=== PATIENT | female | born 1960 | race Caucasian/White ===

== ENCOUNTER 2017-10-13 19:37 | Inpatient (IN) ==
[2017-10-13] MEDS ORDERED: Sod Chloride 0.9% Inj 1,000 ML IV.SIG SCH (20:00)
--- NOTE | 2017-10-13 20:06 | ED ---
HPI General Chief complaint: Overdose Stated complaint: Evac/Poss Od Time Seen by Provider: 10/13/17 19:45 Source: patient Mode of arrival: EMS Limitations: no limitations History of Present Illness HPI narrative: Patient is a 57-year-old female who presents to the emergency room with EMS after an overdose. Patient reports that she has been depressed, she has not been sleeping, reports a little after 6 PM today, she drank 2-3 cups of liquid Drano. Patient reports that she is just tired and depressed. She has been nauseous and has been vomiting after she drank the liquid Drano. She drove her brother's house and told him what she did and he called for help. Patient presents under a Rosenberg Act. Patient refuses to tell me if she is suicidal or not - just tells me she is very depressed Related Data Home Medications Medication Instructions Recorded Confirmed fenofibrate 50 mg PO DAILY 10/13/17 10/13/17 morphine 15 mg PO Q6H 10/13/17 10/13/17 omeprazole 20 mg PO DAILY 10/13/17 10/13/17 Allergies Allergy/AdvReac Type Severity Reaction Status Date / Time baclofen Allergy Severe Irritabilit Verified 10/13/17 20:19 y/Anxiety TAPE AdvReac Unknown Rash, Uncoded 10/13/17 20:19 Generalized Review of Systems ROS: all other systems reviewed are negative PMFSH History History Provided By: Patient Medical History Medical History GERD (gastroesophageal reflux disease) (Acute) Depression (Acute) Fibromyalgia (Acute) Social History Social History Second Hand Smoke Exposure: No Smoking Status: Never smoker How Often Do You Have a Drink Containing Alcohol: Never Recent Travel in [facility] within the Last 8 Weeks: No Recent Out of Country Travel within the Last 8 Weeks: No Exam Narrative Exam Narrative: GENERAL: Moderate distress SKIN: Focused skin assessment warm/dry. HEAD: Atraumatic. Normocephalic. EYES: Pupils equal and round. No scleral icterus. No injection or drainage. ENT: No nasal bleeding or discharge. Mucous membranes pink and moist. NECK: Trachea midline. No JVD. CARDIOVASCULAR: Regular rate and rhythm. No murmur appreciated. RESPIRATORY: No accessory muscle use. Clear to auscultation. Breath sounds equal bilaterally. GASTROINTESTINAL: Abdomen soft, non-tender, nondistended. Hepatic and splenic margins not palpable. MUSCULOSKELETAL: No obvious deformities. No clubbing. No cyanosis. No edema. NEUROLOGICAL: Awake and alert. No obvious cranial nerve deficits. Motor grossly within normal limits. Normal speech. PSYCHIATRIC: Anxious mood and affect; insight and judgment normal. Course Initial Documented Vital Signs Temperature 98.9 F 10/13/17 20:17 Pulse Rate 98 H 10/13/17 20:17 Respiratory Rate 18 10/13/17 20:17 Blood Pressure 172/94 H 10/13/17 20:17 Pulse Oximetry 98 10/13/17 20:17 Last Documented Vital Signs Temperature 98.9 F 10/13/17 20:17 Pulse Rate 98 H 10/13/17 20:17 Respiratory Rate 18 10/13/17 20:17 Blood Pressure 172/94 H 10/13/17 20:17 Pulse Oximetry 98 10/13/17 20:17 Critical Care Time Critical Care Time: Yes Total Critical Care Time: 30 Attestation: Aggregate critical care time was 30 minutes. Time to perform other separately billable procedures was not included in the critical care time. My time did not include minutes spent treating any other patients simultaneously or on activities that did not directly contribute to the patient's treatment. The services I provided to this patient were to treat and/or prevent clinically significant deterioration that could result in: , decompensation, deterioration I provided critical care services requiring my management, as noted below: Chart data review, documentation time, medication orders and management, vital sign assessments/reviewing monitor data, ordering and reviewing lab tests, ordering and interpreting/reviewing x-rays and diagnostic studies, care of the patient and discussion of the patient with the admitting physicians. Medical Decision Making MDM Narrative Medical decision making narrative: During the course of the patients emergency department visit, the patients history, examination, and differential diagnosis were reviewed with the patient. The patient was placed on a environmental monitoring specialist with oximetry and frequent blood pressure monitoring. The patient had an IV access obtained and blood work sent for analysis. The patient was initially provided IVF as well as IV zofran A call was made to poison control, recommend lab work including PT, INR and type and screen. Also recommends GI to scope patient looking for ulcerations Call made to GI longwall foreman Case reviewed with Dr. Cadet - does not require endoscopy at this time, request liquid carafate and ct to rule out perforation CT of the abdomen and pelvis with severe distal esophageal and gastric wall thickening suggestive of acute esophagitis and gastritis -patient is severely uncomfortable, will require close monitoring in the ICU. Call made to the pointer helper. Case reviewed with Dr. Vargas who accepts pt to his service Medical Screen Exam Complete: Yes Emergency Medical Condition: Yes Differential Diagnosis Differential Diagnosis: suicidal idealation, drug overdose, gastric ulcer, gastritis Medical Records Medical records reviewed: Yes I reviewed the patient's medical records. Lab Data Result diagrams: 10/13/17 19:55 10/13/17 19:55 Lab Results 10/13/17 10/13/17 10/13/17 Range/Units 19:55 19:55 19:55 WBC 6.2 (4.0-11.0) th/mm3 RBC 4.47 (4.00-5.30) mil/mm3 Hgb 13.6 (11.6-15.3) gm/dL Hct 40.6 (35.0-46.0) % MCV 90.6 (80.0-100.0) fL MCH 30.5 (27.0-34.0) pg MCHC 33.6 (32.0-36.0) % RDW 12.9 (11.6-17.2) % Plt Count 323 (150-450) th/mm3 MPV 8.4 (7.0-11.0) fL Neut % (Auto) 70.0 (16.0-70.0) % Lymph % (Auto) 23.1 (9.0-44.0) % [place] % (Auto) 5.7 (0.0-8.0) % Eos % (Auto) 0.3 (0.0-4.0) % Baso % (Auto) 0.9 (0.0-2.0) % Neut # (Auto) 4.3 (1.8-7.7) th/mm3 Lymph # (Auto) 1.4 (1.0-4.8) th/mm3 [place] # (Auto) 0.4 (0.0-0.9) th/mm3 Eos # (Auto) 0.0 (0.0-0.4) th/mm3 Baso # (Auto) 0.1 (0.0-0.2) th/mm3 WBC Differential . Differential Comment Auto diff final PT (9.8-11.6) sec INR Ratio APTT (24.3-30.1) sec Sodium 146 H (136-145) meq/L Potassium 3.3 L (3.5-5.1) meq/L Chloride 111 H (98-107) meq/L Carbon Dioxide 22.9 (21.0-32.0) meq/L Anion Gap 12 (5-15) meq/L BUN 13 (7-18) mg/dL Creatinine 0.88 (0.50-1.00) mg/dL Estimated GFR 66 L (>89) mL/min Random Glucose 115 H (74-106) mg/dL Calcium 8.4 L (8.5-10.1) mg/dL Prot Corrected Calcium Total Bilirubin 0.7 (0.2-1.0) mg/dL AST 29 (15-37) U/L ALT 20 (10-53) U/L Alkaline Phosphatase 56 (45-117) U/L Total Protein 7.5 (6.4-8.2) g/dL Albumin 4.2 (3.4-5.0) g/dL TSH 1.660 (0.358-3.740) uIU/mL Salicylates Less than 1.7 L (2.8-20.0) mg/dL Urine Opiates Screen (Neg) Acetaminophen Less than 2.0 L (10.0-30.0) mcg/mL Ur Barbiturates Screen (Neg) Ur Amphetamines Screen (Neg) U Benzodiazepines Scrn (Neg) Urine Cocaine Screen (Neg) U Cannabinoids Screen (Neg) Serum Alcohol Less than 3 (0-5) mg/dL Blood Type Blood Type Recheck Antibody Screen 10/13/17 10/13/17 10/13/17 Range/Units 19:55 19:55 20:05 WBC (4.0-11.0) th/mm3 RBC (4.00-5.30) mil/mm3 Hgb (11.6-15.3) gm/dL Hct (35.0-46.0) % MCV (80.0-100.0) fL MCH (27.0-34.0) pg MCHC (32.0-36.0) % RDW (11.6-17.2) % Plt Count (150-450) th/mm3 MPV (7.0-11.0) fL Neut % (Auto) (16.0-70.0) % Lymph % (Auto) (9.0-44.0) % [place] % (Auto) (0.0-8.0) % Eos % (Auto) (0.0-4.0) % Baso % (Auto) (0.0-2.0) % Neut # (Auto) (1.8-7.7) th/mm3 Lymph # (Auto) (1.0-4.8) th/mm3 [place] # (Auto) (0.0-0.9) th/mm3 Eos # (Auto) (0.0-0.4) th/mm3 Baso # (Auto) (0.0-0.2) th/mm3 WBC Differential Differential Comment PT 11.7 H (9.8-11.6) sec INR 1.2 Ratio APTT 21.5 L (24.3-30.1) sec Sodium Cancelled (136-145) meq/L Potassium Cancelled (3.5-5.1) meq/L Chloride Cancelled (98-107) meq/L Carbon Dioxide Cancelled (21.0-32.0) meq/L Anion Gap Cancelled (5-15) meq/L BUN Cancelled (7-18) mg/dL Creatinine Cancelled (0.50-1.00) mg/dL Estimated GFR Cancelled (>89) mL/min Random Glucose Cancelled (74-106) mg/dL Calcium Cancelled (8.5-10.1) mg/dL Prot Corrected Calcium Cancelled Total Bilirubin Cancelled (0.2-1.0) mg/dL AST Cancelled (15-37) U/L ALT Cancelled (10-53) U/L Alkaline Phosphatase Cancelled (45-117) U/L Total Protein Cancelled (6.4-8.2) g/dL Albumin Cancelled (3.4-5.0) g/dL TSH Cancelled (0.358-3.740) uIU/mL Salicylates (2.8-20.0) mg/dL Urine Opiates Screen (Neg) Acetaminophen (10.0-30.0) mcg/mL Ur Barbiturates Screen (Neg) Ur Amphetamines Screen (Neg) U Benzodiazepines Scrn (Neg) Urine Cocaine Screen (Neg) U Cannabinoids Screen (Neg) Serum Alcohol Cancelled (0-5) mg/dL Blood Type A Positive Blood Type Recheck Required Antibody Screen Negative 10/13/17 Range/Units 22:15 WBC (4.0-11.0) th/mm3 RBC (4.00-5.30) mil/mm3 Hgb (11.6-15.3) gm/dL Hct (35.0-46.0) % MCV (80.0-100.0) fL MCH (27.0-34.0) pg MCHC (32.0-36.0) % RDW (11.6-17.2) % Plt Count (150-450) th/mm3 MPV (7.0-11.0) fL Neut % (Auto) (16.0-70.0) % Lymph % (Auto) (9.0-44.0) % [place] % (Auto) (0.0-8.0) % Eos % (Auto) (0.0-4.0) % Baso % (Auto) (0.0-2.0) % Neut # (Auto) (1.8-7.7) th/mm3 Lymph # (Auto) (1.0-4.8) th/mm3 [place] # (Auto) (0.0-0.9) th/mm3 Eos # (Auto) (0.0-0.4) th/mm3 Baso # (Auto) (0.0-0.2) th/mm3 WBC Differential Differential Comment PT (9.8-11.6) sec INR Ratio APTT (24.3-30.1) sec Sodium (136-145) meq/L Potassium (3.5-5.1) meq/L Chloride (98-107) meq/L Carbon Dioxide (21.0-32.0) meq/L Anion Gap (5-15) meq/L BUN (7-18) mg/dL Creatinine (0.50-1.00) mg/dL Estimated GFR (>89) mL/min Random Glucose (74-106) mg/dL Calcium (8.5-10.1) mg/dL Prot Corrected Calcium Total Bilirubin (0.2-1.0) mg/dL AST (15-37) U/L ALT (10-53) U/L Alkaline Phosphatase (45-117) U/L Total Protein (6.4-8.2) g/dL Albumin (3.4-5.0) g/dL TSH (0.358-3.740) uIU/mL Salicylates (2.8-20.0) mg/dL Urine Opiates Screen Neg (Neg) Acetaminophen (10.0-30.0) mcg/mL Ur Barbiturates Screen Neg (Neg) Ur Amphetamines Screen Neg (Neg) U Benzodiazepines Scrn Pos H (Neg) Urine Cocaine Screen Neg (Neg) U Cannabinoids Screen Pos H (Neg) Serum Alcohol (0-5) mg/dL Blood Type Blood Type Recheck Antibody Screen Imaging Data Radiologist's impression: Chest X-Ray 10/13/17 19:47 CONCLUSION: Negative examination. Abdomen/Pelvis CT 10/13/17 20:44 CONCLUSION: 1. Severe distal esophageal and gastric wall thickening suggestive of acute esophagitis and gastritis. Clinical correlation is recommended. 2. Multiple stable hepatic hemangiomas as described above. 3. Degenerative changes and scoliosis of lumbar spine. 4. Stable right renal cyst measuring 1.6 cm. Discharge Plan Discharge Disposition Patient Disposition: 30 Still Patient Discharge Condition Condition: Serious Discharge Details Diagnosis: Overdose, Suicidal behavior Physicians Team ED Provider: Ruth Newman Primary Care Provider: UNKNOWN, Attending Provider: Billy Vargas Other Providers: [employer] Status ED Status: Admitted Patient
--- NOTE | 2017-10-13 20:19 | XR ---
EXAM DATE: 10/13/2017 8:13 PM EDT AGE/SEX: 57 years / Female INDICATIONS: . Chest pain. Possible overdose. CLINICAL DATA: This is the patient's initial encounter. Patient reports that signs and symptoms have been present for 1 day and indicates a pain score of 10/10. MEDICAL/SURGICAL HISTORY: Gastroesophageal reflux disease. Cardiovascular disease. Hysterecto my. COMPARISON: . FINDINGS: PA and lateral views of the chest demonstrate the lungs to be symmetrically aerated without evidence of mass, infiltrate or effusion. The cardiomediastinal contours are unremarkable. Osseous structures are intact. CONCLUSION: Negative examination. Electronically signed by: Ortiz Hinkle MD 10/13/2017 8:18 PM EDT
[2017-10-13 20:28] LABS: Baso # (Auto) 0.1 th/mm3 (0.0-0.2); Baso % (Auto) 0.9 % (0.0-2.0); Eos % (Auto) 0.3 % (0.0-4.0); Hematocrit 40.6 % (35.0-46.0); Hemoglobin 13.6 gm/dL (11.6-15.3); Lymph # (Auto) 1.4 th/mm3 (1.0-4.8); Lymph % (Auto) 23.1 % (9.0-44.0); Mean Corpuscular HGB Conc 33.6 % (32.0-36.0); Mean Corpuscular Hemoglobin 30.5 pg (27.0-34.0); Mean Corpuscular Volume 90.6 fL (80.0-100.0); Mean Platelet Volume 8.4 fL (7.0-11.0); Mono # (Auto) 0.4 th/mm3 (0.0-0.9); Mono % (Auto) 5.7 % (0.0-8.0); Neut # (Auto) 4.3 th/mm3 (1.8-7.7); Platelet Count 323 th/mm3 (150-450); Red Blood Count 4.47 mil/mm3 (4.00-5.30); Red Cell Distribution Width 12.9 % (11.6-17.2); White Blood Count 6.2 th/mm3 (4.0-11.0)
[2017-10-13 20:29] LABS: Albumin 4.2 g/dL (3.4-5.0); Anion Gap 12 meq/L (5-15); Blood Urea Nitrogen 13 mg/dL (7-18); Calcium 8.4 mg/dL (8.5-10.1); Carbon Dioxide 22.9 meq/L (21.0-32.0); Chloride 111 meq/L (98-107); Glomerular Filtration Rate 66 mL/min (>89); Glucose,Random 115 mg/dL (74-106); Potassium 3.3 meq/L (3.5-5.1); Sodium 146 meq/L (136-145)
[2017-10-13 20:30] LABS: Alanine Aminotransferase 20 U/L (10-53); Aspartate Aminotransferase 29 U/L (15-37)
[2017-10-13 20:40] LABS: Alkaline Phosphatase 56 U/L (45-117); Total Protein 7.5 g/dL (6.4-8.2)
[2017-10-13] MEDS ORDERED: Sucralfate Liq 1 GM/10 ML UDC PO STA (20:42)
[2017-10-13 21:24] LABS: Activated Partial Thrombo Time 21.5 sec (24.3-30.1); INR 1.2 Ratio; Prothrombin Time 11.7 sec (9.8-11.6)
--- NOTE | 2017-10-13 21:31 | CT ---
EXAM DATE: 10/13/2017 9:18 PM EDT AGE/SEX: 57 years / Female INDICATIONS: Abdominal pain and vomiting after drinking drano. CLINICAL DATA: This is the patient's initial encounter. Patient reports that signs and symptoms have been present for 1 day and indicates a pain score of 6/10. MEDICAL/SURGICAL HISTORY: Gastroesophageal reflux disease. None. ORAL CONTRAST: No oral contrast ingested. RADIATION DOSE: 4.63 CTDI (mGy) COMPARISON: . TECHNIQUE: Multiple contiguous axial images were obtained through the abdomen and pelvis following b olus infusion of 75 ml Omnipaque 350 (iohexol) nonionic water-soluble contrast as a single exam dos e. No oral contrast ingested. Using automated exposure control and adjustment of the mA and/or kV ac cording to patient size, radiation dose was kept as low as reasonably achievable to obtain optimal di agnostic quality images. DICOM format image data is available electronically for review and comparis on. FINDINGS: Lower Lungs: The visualized lower lungs are clear. Liver: Multiple hepatic hemangiomas are again noted with the largest measuring 3 cm in the expected r egion of the caudate lobe. Spleen: Homogeneous density without enlargement. Pancreas: Unremarkable without mass or calcification. Kidneys: Normal in size and shape. No evidence of mass or hydronephrosis. 1.6 cm right renal cyst is noted. Adrenal Glands: Unremarkable. Aorta: The aorta and proximal iliac vessels are grossly unremarkable without aneurysmal dilation. Bowel/Mesentery: There is severe thickening involving the visualized portion of the distal esophageal wall consistent with probable esophagitis. Marked diffuse gastric wall thickening is noted consisten t with probable severe gastritis. Clinical correlation is recommended. Abdominal Wall: Intact. Retroperitoneum: No evidence of adenopathy in the retrocrural, para-aortic, or deep pelvic regions. Bladder: Contours are smooth. Reproductive Organs: No abnormal masses or calcifications seen. Inguinal: The inguinal region is unremarkable without evidence of adenopathy. Bony Structures: Degenerative changes and scoliosis of the lumbar spine are noted. CONCLUSION: 1. Severe distal esophageal and gastric wall thickening suggestive of acute esophagitis and gastriti s. Clinical correlation is recommended. 2. Multiple stable hepatic hemangiomas as described above. 3. Degenerative changes and scoliosis of lumbar spine. 4. Stable right renal cyst measuring 1.6 cm. Electronically signed by: Ortiz Hinkle MD 10/13/2017 9:30 PM EDT
[2017-10-13 22:49] LABS: Amphetamine Screen,Urine Neg (Neg); Barbiturate Screen,Urine Neg (Neg); Cannabinoid Screen,Urine Pos (Neg); Cocaine Screen,Urine Neg (Neg)
[2017-10-13 22:51] LABS: Opiate Screen,Urine Neg (Neg)
--- NOTE | 2017-10-13 23:03 | P.HPCC ---
History of Present Illness Primary Care Physician: UNKNOWN History of Present Illness: 57-year-old female who presents after an overdose. Patient reports that she has been depressed, she has not been sleeping, reports a little after 6 PM today , she drank 2-3 cups of liquid Drano. Patient reports that she is just tired and depressed. She has been nauseous and has been vomiting after she drank the liquid Drano. She drove to her brother's house and told him what she did and he called for help. Patient presents under a Rosenberg Act. Patient refuses to provide any further information. Inpatient Certification: I certify that the inpatient services were ordered in accordance with Medicare regulations governing the order. This includes certification that hospital inpatient services are reasonable and necessary and in the case of services not specified as inpatient-only under 42 CFR 419.22(n), that they are appropriately provided as inpatient services in accordance to with the 2-midnight benchmark under 43 CFR 412.3(e) Review of Systems unobtainable due to mental condition PMFSH - History History Provided By: Patient - Medical History Medical History: Medical History (Last Updated 10/13/17 @ 20:18 by Ortiz Mann) GERD (gastroesophageal reflux disease) (Acute) Depression (Acute) Fibromyalgia - Tobacco History Second Hand Smoke Exposure: No Smoking Status: Never smoker - Alcohol History How Often Do You Have a Drink Containing Alcohol: Never - Travel History Recent Travel in the [place] Within the Last 8 Weeks: No Recent Travel Out of the Country Within the Last 8 Weeks: No - Immunization History Tetanus Immunization: Unsure Hx Influenza Vaccine This Season: No Medications and Allergies Active Medications: Active Medications Sodium Chloride (Ns Inj) 1,000 mls @ 0 mls/hr IV.SIG BOLUS SHANTAL Last Admin: 10/13/17 20:25 Dose: 999 mls/hr Allergies Allergy/AdvReac Type Severity Reaction Status Date / Time baclofen Allergy Severe Irritabilit Verified 10/13/17 20:19 y/Anxiety TAPE AdvReac Unknown Rash, Uncoded 10/13/17 20:19 Generalized Home Medications Medication Instructions Recorded Confirmed Type fenofibrate 50 mg PO DAILY 10/13/17 10/13/17 History morphine 15 mg PO Q6H 10/13/17 10/13/17 History omeprazole 20 mg PO DAILY 10/13/17 10/13/17 History Results - Labs CBC & Chem 7: 10/14/17 02:57 10/14/17 02:57 Labs: Short CBC 10/13/17 Range/Units 19:55 WBC 6.2 (4.0-11.0) th/mm3 Hgb 13.6 (11.6-15.3) gm/dL Hct 40.6 (35.0-46.0) % Plt Count 323 (150-450) th/mm3 BMP 10/13/17 10/13/17 19:55 19:55 Sodium 146 H Cancelled Potassium 3.3 L Cancelled Chloride 111 H Cancelled Carbon Dioxide 22.9 Cancelled BUN 13 Cancelled Creatinine 0.88 Cancelled Calcium 8.4 L Cancelled Liver Function 10/13/17 10/13/17 Range/Units 19:55 19:55 Total Bilirubin 0.7 Cancelled (0.2-1.0) mg/dL AST 29 Cancelled (15-37) U/L ALT 20 Cancelled (10-53) U/L Alkaline Phosphatase 56 Cancelled (45-117) U/L Albumin 4.2 Cancelled (3.4-5.0) g/dL - Imaging Impressions Chest X-Ray 10/13/17 19:47 CONCLUSION: Negative examination. Abdomen/Pelvis CT 10/13/17 20:44 CONCLUSION: 1. Severe distal esophageal and gastric wall thickening suggestive of acute esophagitis and gastritis. Clinical correlation is recommended. 2. Multiple stable hepatic hemangiomas as described above. 3. Degenerative changes and scoliosis of lumbar spine. 4. Stable right renal cyst measuring 1.6 cm. Exam Vital signs: Vital Signs 10/13/17 20:17 Temperature 98.9 F Pulse Rate 98 H Respiratory Rate 18 Blood Pressure 172/94 H Pulse Oximetry 98 Intake & Output 10/13/17 10/13/17 10/14/17 06:59 18:59 06:59 Weight 65 kg - Constitutional mild distress - Routine HEENT Exam Head: Present: normocephalic, atraumatic Eye: Present: PERRL ENT: Present: mucous membranes moist - Routine Neck Exam Present: supple, full ROM. Absent: JVD, carotid bruit - Routine Respiratory Exam Absent: accessory muscle use, rhonchi, stridor, wheezes - Routine Cardiovascular Exam Present: RRR, S1, S2 - Routine Abdominal Exam Present: soft, normoactive bowel sounds, tenderness. Absent: distended, rebound - Routine Extremities Exam Absent: cyanosis, clubbing, edema - Routine Skin Exam Present: intact. Absent: cyanosis, erythema - Routine Neurological Exam Present: alert, oriented X3. Absent: facial asymmetry Caprini VTE Risk Assessment Caprini VTE Risk Assessment: Moderate/High Risk (score >= 2) Caprini Risk Assessment Model: Point Value = 1 Point Value = 2 Point Value = 3 Point Value = 5 Age 41-60 Minor surgery BMI > 25 kg/m2 Swollen legs Varicose veins or History of unexplained or recurrent spontaneous Oral contraceptives or hormone replacement Sepsis (< 1 month) Serious lung disease, including pneumonia (< 1 month) Abnormal pulmonary function Acute myocardial infarction Congestive heart failure (< 1 month) History of inflammatory bowel disease Medical patient at bed rest Age 61-74 Arthroscopic surgery Major open surgery (> 45 min) Laparoscopic surgery (> 45 min) Malignancy Confined to bed (> 72 hours) Immobilizing plaster cast Central venous access Age >= 75 History of VTE Family history of VTE Factor V Leiden Prothrombin [id number] Lupus anticoagulant Anticardiolipin antibodies Elevated serum homocysteine Heparin-induced thrombocytopenia Other congenital or acquired thrombophilia Stroke (< 1 month) Elective arthroplasty Hip, pelvis, or leg fracture Acute spinal cord injury (< 1 month) Prophylaxis Regimen: Total Risk Factor Score Risk Level Prophylaxis Regimen 0-1 Low Early ambulation 2 Moderate Order ONE of the following: *Sequential Compression Device (SCD) *Heparin 5000 units SQ BID 3-4 Higher Order ONE of the following medications: *Heparin 5000 units SQ TID *Enoxaparin/Lovenox 40 mg SQ daily (WT < 150 kg, CrCl > 30 mL/min) *Enoxaparin/Lovenox 30 mg SQ daily (WT < 150 kg, CrCl > 10-29 mL/min) *Enoxaparin/Lovenox 30 mg SQ BID (WT < 150 kg, CrCl > 30 mL/min) AND/OR *Sequential Compression Device (SCD) 5 or more Highest Order ONE of the following medications: *Heparin 5000 units SQ TID (Preferred with Epidurals) *Enoxaparin/Lovenox 40 mg SQ daily (WT < 150 kg, CrCl > 30 mL/min) *Enoxaparin/Lovenox 30 mg SQ daily (WT < 150 kg, CrCl > 10-29 mL/min) *Enoxaparin/Lovenox 30 mg SQ BID (WT < 150 kg, CrCl > 30 mL/min) AND *Sequential Compression Device (SCD) Assessment and Plan - Assessment and Plan Plan: Caustics ingestion -Poison Control Center notified by ED with recommendation of GI consultation and supportive care -N.p.o. -IV fluids -Monitor in the ICU -Gastroenterology consultation pending -CT abdomen pelvis negative for perforation Suicide attempt -Underlying depression -Rosenberg act -Psychiatry evaluation GERD -Protonix IV twice daily DVT GI prophylaxis -Teds SCDs -Subcu heparin -Tonics IV twice daily The total critical care time was 35 minutes. Time to perform other separately billable procedures was not included in the critical care time.
[2017-10-13] MEDS ORDERED: Bisacodyl 10 MG Supp RECTAL PRN (23:45)
[2017-10-13] MEDS ORDERED: Morphine Sulfate Inj 2 MG/ML Vial IV.PUSH PRN (23:45)
[2017-10-14 03:25] LABS: Baso % (Auto) 0.2 % (0.0-2.0); Hematocrit 39.9 % (35.0-46.0); Hemoglobin 13.3 gm/dL (11.6-15.3); Lymph # (Auto) 0.5 th/mm3 (1.0-4.8); Lymph % (Auto) 4.1 % (9.0-44.0); Mean Corpuscular HGB Conc 33.3 % (32.0-36.0); Mean Corpuscular Hemoglobin 30.4 pg (27.0-34.0); Mean Platelet Volume 8.2 fL (7.0-11.0); Mono # (Auto) 0.6 th/mm3 (0.0-0.9); Neut # (Auto) 11.7 th/mm3 (1.8-7.7); Neut % (Auto) 90.7 % (16.0-70.0); Platelet Count 285 th/mm3 (150-450); Red Blood Count 4.38 mil/mm3 (4.00-5.30); Red Cell Distribution Width 12.9 % (11.6-17.2); White Blood Count 12.9 th/mm3 (4.0-11.0)
[2017-10-14 03:31] LABS: Activated Partial Thrombo Time 23.4 sec (24.3-30.1); INR 1.2 Ratio
[2017-10-14 03:48] LABS: Albumin 3.7 g/dL (3.4-5.0); Anion Gap 9 meq/L (5-15); Aspartate Aminotransferase 42 U/L (15-37); Blood Urea Nitrogen 16 mg/dL (7-18); Calcium 8.4 mg/dL (8.5-10.1); Carbon Dioxide 27.3 meq/L (21.0-32.0); Chloride 113 meq/L (98-107); Glomerular Filtration Rate 87 mL/min (>89); Glucose,Random 124 mg/dL (74-106); Magnesium 1.9 mg/dL (1.5-2.5); Sodium 149 meq/L (136-145)
[2017-10-14 03:52] LABS: Alanine Aminotransferase 19 U/L (10-53); Alkaline Phosphatase 49 U/L (45-117); Phosphorus 3.2 mg/dL (2.5-4.9); Total Protein 6.9 g/dL (6.4-8.2)
[2017-10-14] MEDS ORDERED: Chlorhexidine Gluconate 2% 1 Pack (2 Cloths) TOPICAL PRN (04:00)
[2017-10-14] MEDS ORDERED: Chlorhexidine Gluconate 2% 1 Pack (2 Cloths) TOPICAL SCH (04:00)
[2017-10-14] MEDS: Heparin - SQ 10,000 UNITS/ML Vial SQ SCH ×2 (06:20→13:35)
[2017-10-14] MEDS ORDERED: Senna/Docusate Sodium 8.6/50 MG Tablet PO SCH (09:00)
--- NOTE | 2017-10-14 10:42 | P.PN ---
Subjective Interval history: This is a pleasant 57 y/o Female who came to ER with status post suicide attempt , Patient reports that she has been depressed, she has not been sleeping, reports a little after 6 PM today, she drank 2-3 cups of liquid Drano. Patient reports that she is just tired and depressed. She has been nauseous and has been vomiting after she drank the liquid Drano. She drove to her brother's house and told him what she did and he called for help. Patient presents under a Rosenberg Act. Patient refuses to provide any further information. 10/14: Seen in Intensive Care Unit already evaluated by Psychiatry specialist, recommended to transfer to Psychiatric unit once Medically cleared. she has Depression, Fibromyalgia, GERD , complaint of abdominal pain no nausea, vomit or diarrhea. Physical Exam Vital signs: Vital Signs 10/13/17 20:17 10/13/17 23:45 10/14/17 00:00 Temperature 98.9 F 97.8 F Pulse Rate 98 H 95 H 86 Respiratory Rate 18 18 23 Blood Pressure 172/94 H 162/84 H 120/58 L Pulse Oximetry 98 98 98 10/14/17 02:00 10/14/17 04:00 10/14/17 06:00 Temperature 98.1 F Pulse Rate 113 H 105 H 106 H Respiratory Rate 20 Blood Pressure 145/86 H Pulse Oximetry 98 10/14/17 08:00 Temperature 98.2 F Pulse Rate 95 H Respiratory Rate 20 Blood Pressure 144/82 H Pulse Oximetry 99 Intake & Output 10/13/17 10/14/17 10/14/17 18:59 06:59 18:59 Intake Total 1000 / 1000 Output Total 300 / 300 Balance 700 / 700 Weight 54 kg Intake: IV 1000 / 1000 NS Inj 1,000 ML @ Wide Open IV. 1000 / 1000 SIG BOLUS SHANTAL Rx#:[id number] Oral 0 / 0 Output: Urine 300 / 300 Other: # Bowel Movements 0 Weight On Admission 53.5 kg Narrative: GENERAL: This is a well-nourished, well-developed patient, in no apparent distress. CARDIOVASCULAR: Regular rate and rhythm without murmurs, gallops, or rubs. RESPIRATORY: Clear to auscultation. Breath sounds equal bilaterally. No wheezes , rales, or rhonchi. GASTROINTESTINAL: Abdomen soft, generalized tenderness. MUSCULOSKELETAL: Extremities without clubbing, cyanosis, or edema. NEURO: Alert & Oriented x4 to person, place, time, situation. Moves all ext x4 Results - Labs CBC & Chem 7: 10/14/17 02:57 10/14/17 02:57 Laboratory Results - last 24 hr 10/13/17 10/13/17 10/13/17 19:55 19:55 19:55 WBC 6.2 RBC 4.47 Hgb 13.6 Hct 40.6 MCV 90.6 MCH 30.5 MCHC 33.6 RDW 12.9 Plt Count 323 MPV 8.4 Neut % (Auto) 70.0 Lymph % (Auto) 23.1 [place] % (Auto) 5.7 Eos % (Auto) 0.3 Baso % (Auto) 0.9 Neut # (Auto) 4.3 Lymph # (Auto) 1.4 [place] # (Auto) 0.4 Eos # (Auto) 0.0 Baso # (Auto) 0.1 WBC Differential . Differential Comment Auto diff final PT INR APTT Sodium 146 H Potassium 3.3 L Chloride 111 H Carbon Dioxide 22.9 Anion Gap 12 BUN 13 Creatinine 0.88 Estimated GFR 66 L Random Glucose 115 H Lactic Acid Calcium 8.4 L Prot Corrected Calcium Phosphorus Magnesium Total Bilirubin 0.7 AST 29 ALT 20 Alkaline Phosphatase 56 Total Protein 7.5 Albumin 4.2 TSH 1.660 Nasal Screen MRSA (PCR) Salicylates Less than 1.7 L Urine Opiates Screen Acetaminophen Less than 2.0 L Ur Barbiturates Screen Ur Amphetamines Screen U Benzodiazepines Scrn Urine Cocaine Screen U Cannabinoids Screen Serum Alcohol Less than 3 Blood Type Blood Type Recheck Antibody Screen 10/13/17 10/13/17 10/13/17 19:55 19:55 20:05 WBC RBC Hgb Hct MCV MCH MCHC RDW Plt Count MPV Neut % (Auto) Lymph % (Auto) [place] % (Auto) Eos % (Auto) Baso % (Auto) Neut # (Auto) Lymph # (Auto) [place] # (Auto) Eos # (Auto) Baso # (Auto) WBC Differential Differential Comment PT 11.7 H INR 1.2 APTT 21.5 L Sodium Cancelled Potassium Cancelled Chloride Cancelled Carbon Dioxide Cancelled Anion Gap Cancelled BUN Cancelled Creatinine Cancelled Estimated GFR Cancelled Random Glucose Cancelled Lactic Acid Calcium Cancelled Prot Corrected Calcium Cancelled Phosphorus Magnesium Total Bilirubin Cancelled AST Cancelled ALT Cancelled Alkaline Phosphatase Cancelled Total Protein Cancelled Albumin Cancelled TSH Cancelled Nasal Screen MRSA (PCR) Salicylates Urine Opiates Screen Acetaminophen Ur Barbiturates Screen Ur Amphetamines Screen U Benzodiazepines Scrn Urine Cocaine Screen U Cannabinoids Screen Serum Alcohol Cancelled Blood Type A Positive Blood Type Recheck Required Antibody Screen Negative 10/13/17 10/13/17 10/14/17 22:15 23:59 02:57 WBC RBC Hgb Hct MCV MCH MCHC RDW Plt Count MPV Neut % (Auto) Lymph % (Auto) [place] % (Auto) Eos % (Auto) Baso % (Auto) Neut # (Auto) Lymph # (Auto) [place] # (Auto) Eos # (Auto) Baso # (Auto) WBC Differential Differential Comment PT 12.0 H INR 1.2 APTT 23.4 L Sodium Potassium Chloride Carbon Dioxide Anion Gap BUN Creatinine Estimated GFR Random Glucose Lactic Acid Calcium Prot Corrected Calcium Phosphorus Magnesium Total Bilirubin AST ALT Alkaline Phosphatase Total Protein Albumin TSH Nasal Screen MRSA (PCR) Not detected Salicylates Urine Opiates Screen Neg Acetaminophen Ur Barbiturates Screen Neg Ur Amphetamines Screen Neg U Benzodiazepines Scrn Pos H Urine Cocaine Screen Neg U Cannabinoids Screen Pos H Serum Alcohol Blood Type Blood Type Recheck Antibody Screen 10/14/17 10/14/17 10/14/17 02:57 02:57 02:57 WBC 12.9 H D RBC 4.38 Hgb 13.3 Hct 39.9 MCV 91.0 MCH 30.4 MCHC 33.3 RDW 12.9 Plt Count 285 MPV 8.2 Neut % (Auto) 90.7 H Lymph % (Auto) 4.1 L [place] % (Auto) 5.0 Eos % (Auto) 0.0 Baso % (Auto) 0.2 Neut # (Auto) 11.7 H Lymph # (Auto) 0.5 L [place] # (Auto) 0.6 Eos # (Auto) 0.0 Baso # (Auto) 0.0 WBC Differential . Differential Comment Auto diff final PT INR APTT Sodium 149 H Potassium 4.0 Chloride 113 H Carbon Dioxide 27.3 Anion Gap 9 BUN 16 Creatinine 0.69 Estimated GFR 87 L Random Glucose 124 H Lactic Acid 1.4 Calcium 8.4 L Prot Corrected Calcium Phosphorus 3.2 Magnesium 1.9 Total Bilirubin 0.8 AST 42 H ALT 19 Alkaline Phosphatase 49 Total Protein 6.9 D Albumin 3.7 TSH Nasal Screen MRSA (PCR) Salicylates Urine Opiates Screen Acetaminophen Ur Barbiturates Screen Ur Amphetamines Screen U Benzodiazepines Scrn Urine Cocaine Screen U Cannabinoids Screen Serum Alcohol Blood Type Blood Type Recheck Antibody Screen - Imaging Impressions Chest X-Ray 10/13/17 19:47 CONCLUSION: Negative examination. Abdomen/Pelvis CT 10/13/17 20:44 CONCLUSION: 1. Severe distal esophageal and gastric wall thickening suggestive of acute esophagitis and gastritis. Clinical correlation is recommended. 2. Multiple stable hepatic hemangiomas as described above. 3. Degenerative changes and scoliosis of lumbar spine. 4. Stable right renal cyst measuring 1.6 cm. Assessment and Plan - Plan Caustics ingestion -Poison Control Center notified by ED with recommendation of GI consultation and supportive care -N.p.o. -IV fluids -Monitor in the ICU -Gastroenterology consultation pending -CT abdomen pelvis negative for perforation Suicide attempt -Underlying depression -Rosenberg act -Psychiatry specialist evaluation performed and recommended to transfer to Psychiatric unit once Medically cleared. GERD -Protonix IV twice daily DVT GI prophylaxis -Teds SCDs -Subcu heparin -Tonics IV twice daily Transfer to Med Surg Code Status: Full Code. Discussed Condition With: Patient and nurse Miss Aragon Discharge Planning: Once cleared by GI specialist.
--- NOTE | 2017-10-14 14:23 | P.DS ---
Date of admission: 10/13/17 21:44 Primary care physician: UNKNOWN Attending physician on discharge: Randy Benavides Anticipated date of discharge: 10/14/17 Brief History from admission: 57-year-old female who presents after an overdose. Patient reports that she has been depressed, she has not been sleeping, reports a little after 6 PM today , she drank 2-3 cups of liquid Drano. Patient reports that she is just tired and depressed. She has been nauseous and has been vomiting after she drank the liquid Drano. She drove to her brother's house and told him what she did and he called for help. Patient presents under a Rosenberg Act. Patient refuses to provide any further information. DS: Diagnosis - Discharge Diagnosis (1) Overdose Status: Acute (2) Suicidal behavior Status: Acute (3) Depression Status: Acute (4) GERD (gastroesophageal reflux disease) Status: Acute DS: Summary Hospital Course: This is a pleasant 57 y/o Female who came to ER with status post suicide attempt , Patient reports that she has been depressed, she has not been sleeping, reports a little after 6 PM today, she drank 2-3 cups of liquid Drano. Patient reports that she is just tired and depressed. She has been nauseous and has been vomiting after she drank the liquid Drano. She drove to her brother's house and told him what she did and he called for help. Patient presents under a Rosenberg Act. Patient refuses to provide any further information. 10/14: Seen in Intensive Care Unit already evaluated by Psychiatry specialist, recommended to transfer to Psychiatric unit once Medically cleared. she has Depression, Fibromyalgia, GERD , complaint of abdominal pain no nausea, vomit or diarrhea. Assessment and Plan - Plan Caustics ingestion -Poison Control Center notified by ED with recommendation of GI consultation and supportive care -N.p.o. -IV fluids -Monitor in the ICU -Gastroenterology consultation pending -CT abdomen pelvis negative for perforation Suicide attempt -Underlying depression -Rosenberg act -Psychiatry specialist evaluation performed and recommended to transfer to Psychiatric unit once Medically cleared. GERD -Protonix IV twice daily DVT GI prophylaxis -Teds SCDs -Subcu heparin -Tonics IV twice daily Transfer to Med Surg Code Status: Full Code. Discussed Condition With: Patient and nurse Margo Discharge Planning: Once cleared by GI specialist. - Time Spent with Patient Total time spent providing and/or coordinating discharge services: Less than 30 minutes - Quality: VTE Deep Vein Thrombosis/Pulmonary Embolism Present on Admission: No Exam Vital signs: Vital Signs 10/13/17 20:17 10/13/17 23:45 10/14/17 00:00 Temperature 98.9 F 97.8 F Pulse Rate 98 H 95 H 86 Respiratory Rate 18 18 23 Blood Pressure 172/94 H 162/84 H 120/58 L Pulse Oximetry 98 98 98 10/14/17 02:00 10/14/17 04:00 10/14/17 06:00 Temperature 98.1 F Pulse Rate 113 H 105 H 106 H Respiratory Rate 20 Blood Pressure 145/86 H Pulse Oximetry 98 10/14/17 08:00 10/14/17 10:00 10/14/17 12:00 Temperature 98.2 F 98.5 F Pulse Rate 95 H 92 H 104 H Respiratory Rate 20 22 Blood Pressure 144/82 H 160/72 H Pulse Oximetry 99 98 Intake & Output 10/13/17 10/14/17 10/14/17 18:59 06:59 18:59 Intake Total 1000 / 1000 Output Total 300 / 300 Balance 700 / 700 Weight 54 kg Intake: IV 1000 / 1000 NS Inj 1,000 ML @ Wide Open IV. 1000 / 1000 SIG BOLUS SHANTAL Rx#:[id number] Oral 0 / 0 Output: Urine 300 / 300 Other: # Bowel Movements 0 Weight On Admission 53.5 kg Narrative: GENERAL: This is a well-nourished, well-developed patient, in no apparent distress. CARDIOVASCULAR: Regular rate and rhythm without murmurs, gallops, or rubs. RESPIRATORY: Clear to auscultation. Breath sounds equal bilaterally. No wheezes , rales, or rhonchi. GASTROINTESTINAL: Abdomen soft, generalized tenderness. MUSCULOSKELETAL: Extremities without clubbing, cyanosis, or edema. NEURO: Alert & Oriented x4 to person, place, time, situation. Moves all ext x4 Results Procedures completed during hospitalization: None Labs on day of discharge: Labs from last 24 hours 10/14/17 10/14/17 10/14/17 02:57 02:57 02:57 WBC 12.9 H D RBC 4.38 Hgb 13.3 Hct 39.9 MCV 91.0 MCH 30.4 MCHC 33.3 RDW 12.9 Plt Count 285 MPV 8.2 Neut % (Auto) 90.7 H Lymph % (Auto) 4.1 L [place] % (Auto) 5.0 Eos % (Auto) 0.0 Baso % (Auto) 0.2 Neut # (Auto) 11.7 H Lymph # (Auto) 0.5 L [place] # (Auto) 0.6 Eos # (Auto) 0.0 Baso # (Auto) 0.0 WBC Differential . Differential Comment Auto diff final PT INR APTT Sodium 149 H Potassium 4.0 Chloride 113 H Carbon Dioxide 27.3 Anion Gap 9 BUN 16 Creatinine 0.69 Estimated GFR 87 L Random Glucose 124 H Lactic Acid 1.4 Calcium 8.4 L Prot Corrected Calcium Phosphorus 3.2 Magnesium 1.9 Total Bilirubin 0.8 AST 42 H ALT 19 Alkaline Phosphatase 49 Total Protein 6.9 D Albumin 3.7 TSH Nasal Screen MRSA (PCR) Salicylates Urine Opiates Screen Acetaminophen Ur Barbiturates Screen Ur Amphetamines Screen U Benzodiazepines Scrn Urine Cocaine Screen U Cannabinoids Screen Serum Alcohol Blood Type Blood Type Recheck Antibody Screen 10/14/17 10/13/17 10/13/17 02:57 23:59 22:15 WBC RBC Hgb Hct MCV MCH MCHC RDW Plt Count MPV Neut % (Auto) Lymph % (Auto) [place] % (Auto) Eos % (Auto) Baso % (Auto) Neut # (Auto) Lymph # (Auto) [place] # (Auto) Eos # (Auto) Baso # (Auto) WBC Differential Differential Comment PT 12.0 H INR 1.2 APTT 23.4 L Sodium Potassium Chloride Carbon Dioxide Anion Gap BUN Creatinine Estimated GFR Random Glucose Lactic Acid Calcium Prot Corrected Calcium Phosphorus Magnesium Total Bilirubin AST ALT Alkaline Phosphatase Total Protein Albumin TSH Nasal Screen MRSA (PCR) Not detected Salicylates Urine Opiates Screen Neg Acetaminophen Ur Barbiturates Screen Neg Ur Amphetamines Screen Neg U Benzodiazepines Scrn Pos H Urine Cocaine Screen Neg U Cannabinoids Screen Pos H Serum Alcohol Blood Type Blood Type Recheck Antibody Screen 10/13/17 10/13/17 10/13/17 20:05 19:55 19:55 WBC RBC Hgb Hct MCV MCH MCHC RDW Plt Count MPV Neut % (Auto) Lymph % (Auto) [place] % (Auto) Eos % (Auto) Baso % (Auto) Neut # (Auto) Lymph # (Auto) [place] # (Auto) Eos # (Auto) Baso # (Auto) WBC Differential Differential Comment PT 11.7 H INR 1.2 APTT 21.5 L Sodium Cancelled Potassium Cancelled Chloride Cancelled Carbon Dioxide Cancelled Anion Gap Cancelled BUN Cancelled Creatinine Cancelled Estimated GFR Cancelled Random Glucose Cancelled Lactic Acid Calcium Cancelled Prot Corrected Calcium Cancelled Phosphorus Magnesium Total Bilirubin Cancelled AST Cancelled ALT Cancelled Alkaline Phosphatase Cancelled Total Protein Cancelled Albumin Cancelled TSH Cancelled Nasal Screen MRSA (PCR) Salicylates Urine Opiates Screen Acetaminophen Ur Barbiturates Screen Ur Amphetamines Screen U Benzodiazepines Scrn Urine Cocaine Screen U Cannabinoids Screen Serum Alcohol Cancelled Blood Type A Positive Blood Type Recheck Required Antibody Screen Negative 10/13/17 10/13/17 10/13/17 19:55 19:55 19:55 WBC 6.2 RBC 4.47 Hgb 13.6 Hct 40.6 MCV 90.6 MCH 30.5 MCHC 33.6 RDW 12.9 Plt Count 323 MPV 8.4 Neut % (Auto) 70.0 Lymph % (Auto) 23.1 [place] % (Auto) 5.7 Eos % (Auto) 0.3 Baso % (Auto) 0.9 Neut # (Auto) 4.3 Lymph # (Auto) 1.4 [place] # (Auto) 0.4 Eos # (Auto) 0.0 Baso # (Auto) 0.1 WBC Differential . Differential Comment Auto diff final PT INR APTT Sodium 146 H Potassium 3.3 L Chloride 111 H Carbon Dioxide 22.9 Anion Gap 12 BUN 13 Creatinine 0.88 Estimated GFR 66 L Random Glucose 115 H Lactic Acid Calcium 8.4 L Prot Corrected Calcium Phosphorus Magnesium Total Bilirubin 0.7 AST 29 ALT 20 Alkaline Phosphatase 56 Total Protein 7.5 Albumin 4.2 TSH 1.660 Nasal Screen MRSA (PCR) Salicylates Less than 1.7 L Urine Opiates Screen Acetaminophen Less than 2.0 L Ur Barbiturates Screen Ur Amphetamines Screen U Benzodiazepines Scrn Urine Cocaine Screen U Cannabinoids Screen Serum Alcohol Less than 3 Blood Type Blood Type Recheck Antibody Screen - Impressions ITS Impressions Chest X-Ray 10/13/17 19:47 CONCLUSION: Negative examination. Abdomen/Pelvis CT 10/13/17 20:44 CONCLUSION: 1. Severe distal esophageal and gastric wall thickening suggestive of acute esophagitis and gastritis. Clinical correlation is recommended. 2. Multiple stable hepatic hemangiomas as described above. 3. Degenerative changes and scoliosis of lumbar spine. 4. Stable right renal cyst measuring 1.6 cm. Discharge Plan - Discharge Disposition Patient Disposition: 64 [facility] To [facility] - Discharge Condition Condition: Serious - Discharge Order Discharge Orders: Discharge Order (Routine); Ordered 10/14/17 Ordered By: Randy Benavides - Discharge Details Anticipated Discharge Date: 10/14/17 Discharge Comment: Ask for GI specialist consult in Psychiatric unit on arrival. - Physicians Team Primary Care Provider: UNKNOWN, Attending Provider: Randy Benavides Other Providers: Daisy Villa ; Mike Cadet MD ; Alberto Melton MD ; Rubens Rico MD
--- NOTE | 2017-10-14 21:27 | ECG ---
Date Performed: 10/13/2017 Time Performed: 21:41:04 PTAGE: 57 years EKG: Sinus rhythm NONSPECIFIC T-WAVE ABNORMALITY BORDERLINE ECG PREVIOUS TRACING : 10/13/2017 19.40 Since the previous tracing, no significant change noted DOCTOR: Demarco Lincoln Interpretating Date/Time 10/14/2017 21:26:27
--- NOTE | 2017-10-14 21:33 | ECG ---
Date Performed: 10/13/2017 Time Performed: 19:40:43 PTAGE: 57 years EKG: Sinus rhythm WITH SHORT SC INTERVAL BORDERLINE ECG NO PREVIOUS TRACING DOCTOR: Demarco Lincoln Interpretating Date/Time 10/14/2017 21:31:37
[2017-10-15] MEDS ORDERED: Pantoprazole Inj 40 MG Vial IV.PUSH SCH
[2017-10-15] MEDS ORDERED: Sod Chloride 0.9% Inj 1,000 ML IV.CONT SCH
== END 2017-10-14 16:25 ==
LOC: NEPE 19:37 → NEDA 21:44 → HIMC 23:45
PROVIDERS: ADMIT Internal Medicine; ATTEND Internal Medicine

== ENCOUNTER 2017-10-14 14:33 | Inpatient (IN) ==
[2017-10-14] MEDS ORDERED: Aluminum/Magnesium/Simethacone Susp 30 ML UDC PO PRN (15:05)
[2017-10-14] MEDS ORDERED: Bisacodyl 10 MG Supp RECTAL PRN (15:05)
--- NOTE | 2017-10-14 15:24 | P.HPPSY ---
Provisional Diagnosis Admission Date: October 14, 2017 Mosinee I.: Major depressive disorder, recurrent, severe, without psychosis, anxiety Mosinee II.: Deferred Mosinee III.: GERD, fibromyalgia Competence Certification of Person's Competence To Provide Express and Informed Consent I have personally examined Jose Conte, a person being served at [facility] on, October 14, 2017 1516. Express and informed consent means consent voluntarily given in writing, by a competent person, after sufficient explanation and disclosure of the subject matter involved to enable the person to make a knowing and willful decision without any element of force, fraud, deceit, duress, or other form of constraint or coercion. This person is 18 years of age or older, is not now known to be incompetent to consent to treatment with a guardian advocate, and does not have a health care surrogate or proxy currently making medical treatment decisions. I have found this person to be one of the following: [] Competent to provide express and informed consent, as defined above, for voluntary admission to this facility and is competent to provide express and informed consent for treatment. He/she has the consistent capacity to make well reasoned, willful, and knowing decisions concerning his or her medical or mental health treatment. The person fully and consistently understands the purpose of the admission for examination/placement and is fully capable of personally exercising all rights assured under [place] [] Incompetent to provide express and informed consent to voluntary admission, and this is incompetent to provide express and informed consent to treatment. The person must be transferred to involuntary status and a petition for a guardian advocate filed with the Circuit Court. [x] Refusing to provide express and informed consent to voluntary admission but is competent to provide express and informed consent for treatment. The person must be discharged or transferred to involuntary status. Form shall be completed within 24 hours of a person's arrival at the receiving facility and filed in the clinical record of each person: 1. Admitted on a voluntary basis 2. Permitted to provide express and informed consent to his/her own treatment 3. Allowed to transfer from involuntary to voluntary status 4. Prior to permitting a person to consent to his or her own treatment after having been previously found incompetent to consent to treatment. History of Present Illness Capacity: Has capacity History of Present Illness: The patient is a 57-year-old woman, domiciled with a friend in [facility] , she has a daughter, she is single, retired, with a psychiatric history of depression, anxiety, insomnia, cannabis use disorder, benzodiazepine use disorder, 5 previous psychiatric hospitalizations, last hospitalization was 5 years ago in [facility], she also has a hospitalization here in [place] in 2011, documentation review, outpatient psychiatric care to a store management, she is in Seroquel 100 mg at bedtime, doxepin 25 mg, medical history of fibromyalgia and GERD, who presents after an overdose. Patient reports that she has been depressed, she has not been sleeping, reports a little after 6 PM today, she drank 2-3 cups of liquid Drano. Patient reports that she is just tired and depressed. She has been facing problems with her couple. She has not slept for the last 3 days which have led to desperation with increased sense of hopelessness, helplessness, worthlessness, and finally 2 suicide ideation and to a suicidal attempt. During the evaluation the patient is very tearful, she seems to be quite fragile and vulnerable. The patient reports that she is in multiple medications for insomnia, none of them are helping, she has been also using Xanax from her friend. He clarifies that after 3 days without sleeping, her coping skills "are gone, I do not know how to deal and manage frustration anymore". Other than insomnia she also reports poor appetite, weight loss for the last 2 months. She denies visual and auditory hallucinations. The patient is logical, coherent and relevant. No paranoia, no delusions, no ideas of reference are present. The patient is fully oriented 3. She reports occasional use of marijuana. Denies the use of alcohol and other illegal drugs. PPHx: epression, anxiety, insomnia, cannabis use disorder, benzodiazepine use disorder, 5 previous psychiatric hospitalizations, last hospitalization was 5 years ago in [facility], she also has a hospitalization here in [place] in 2011, documentation review, outpatient psychiatric care to a store management, she is in Seroquel 100 mg at bedtime, doxepin 25 mg, me PMHx: dical history of fibromyalgia and GERD, substance Hx: Patient uses marijuana, Xanax sometimes, denies alcohol family Hx: Father and mother were both diagnosed with depression Social Hx: The patient was born and raised in [place], she lives in [facility] with a friend, she has a 36 years old daughter, single, retired, her highest level of education is some college - Inpatient Certification I certify that the inpatient services were ordered in accordance with Medicare regulations governing the order. This includes certification that hospital inpatient services are reasonable and necessary and in the case of services not specified as inpatient-only under 42 CFR 419.22(n), that they are appropriately provided as inpatient services in accordance to with the 2-midnight benchmark under 43 CFR 412.3(e) I certify that inpatient psychiatric hospital services are medically necessary. Evaluation and treatment and/or diagnostic testing are expected to improve the patient's condition. The patient needs on a daily basis, active treatment furnished directly by or requiring the supervision of inpatient psychiatric facility personnel. Estimated Total Length of Stay (Days): 7 Plans for Post Hospital Care: Home Review of Systems All other systems reviewed negative except as stated in HPI Psychiatric: Reports anxiety, Reports depression, Reports hopelessness, Reports irritability, Reports mood swings, Reports thoughts of hurting/killing yourself PMFSH - History History Provided By: Patient - Medical History Medical History: Medical History (Last Updated 10/13/17 @ 20:18 by Ortiz Mann) GERD (gastroesophageal reflux disease) (Acute) Depression (Acute) Fibromyalgia - Tobacco History Second Hand Smoke Exposure: No Smoking Status: Never smoker - Alcohol History How Often Do You Have a Drink Containing Alcohol: Never - Substance Use History Substance History: No History of Abuse Medications and Allergies Active Medications: Active Medications Al Hydrox/Mg Hydrox/Simethicone (Mag-Al Plus Susp Liq) 30 ml PO Q6H PRN PRN Reason: DYSPEPSIA Al Hydroxide/Mg Hydroxide (Milk Of Magnesia Liq) 30 ml PO Q12H PRN PRN Reason: Mild Constipation Bisacodyl (Dulcolax Supp) 10 mg RECTAL DAILY PRN PRN Reason: SEVERE CONSITIPATION Lactulose (Lactulose Liq) 30 ml PO DAILY PRN PRN Reason: SEVERE CONSITIPATION Senna/Docusate Sodium (Gloria-Colace) 1 tab PO BID SHANTAL Sennosides (Senokot) 17.2 mg PO Q12H PRN PRN Reason: Moderate Constipation Allergies Allergy/AdvReac Type Severity Reaction Status Date / Time baclofen Allergy Severe Irritabilit Verified 10/13/17 20:19 y/Anxiety TAPE AdvReac Unknown Rash, Uncoded 10/13/17 20:19 Generalized Home Medications Medication Instructions Recorded Confirmed Type fenofibrate 50 mg PO DAILY 10/13/17 10/13/17 History morphine 15 mg PO Q6H 10/13/17 10/13/17 History omeprazole 20 mg PO DAILY 10/13/17 10/13/17 History Results - Labs Labs: Allergies Allergy/AdvReac Type Severity Reaction Status Date / Time baclofen Allergy Severe Irritabilit Verified 10/13/17 20:19 y/Anxiety TAPE AdvReac Unknown Rash, Uncoded 10/13/17 20:19 Generalized Home Medications Medication Instructions Recorded Confirmed Type fenofibrate 50 mg PO DAILY 10/13/17 10/13/17 History morphine 15 mg PO Q6H 10/13/17 10/13/17 History omeprazole 20 mg PO DAILY 10/13/17 10/13/17 History Results - Labs CBC & Chem 7: 10/14/17 02:57 10/14/17 02:57 Labs: Short CBC 10/13/17 Range/Units 19:55 WBC 6.2 (4.0-11.0) th/mm3 Hgb 13.6 (11.6-15.3) gm/dL Hct 40.6 (35.0-46.0) % Plt Count 323 (150-450) th/mm3 BMP 10/13/17 10/13/17 19:55 19:55 Sodium 146 H Cancelled Potassium 3.3 L Cancelled Chloride 111 H Cancelled Carbon Dioxide 22.9 Cancelled BUN 13 Cancelled Creatinine 0.88 Cancelled Calcium 8.4 L Cancelled Liver Function 10/13/17 10/13/17 Range/Units 19:55 19:55 Total Bilirubin 0.7 Cancelled (0.2-1.0) mg/dL AST 29 Cancelled (15-37) U/L ALT 20 Cancelled (10-53) U/L Alkaline Phosphatase 56 Cancelled (45-117) U/L Albumin 4.2 Cancelled (3.4-5.0) g/dL - Imaging Impressions Chest X-Ray 10/13/17 19:47 CONCLUSION: Negative examination. Abdomen/Pelvis CT 10/13/17 20:44 CONCLUSION: 1. Severe distal esophageal and gastric wall thickening suggestive of acute esophagitis and gastritis. Clinical correlation is recommended. 2. Multiple stable hepatic hemangiomas as described above. 3. Degenerative changes and scoliosis of lumbar spine. 4. Stable right renal cyst measuring 1.6 cm. Exam Vital signs: Vital Signs 10/13/17 20:17 Temperature 98.9 F Pulse Rate 98 H Respiratory Rate 18 Blood Pressure 172/94 H Pulse Oximetry 98 Intake & Output 10/13/17 10/13/17 10/14/17 06:59 18:59 06:59 Weight 65 kg Mental Status Examination Appearance: Appropriate Consciousness: Alert Orientation: x4 Motor Activity: Normal gait Speech: Unremarkable Language: Adequate Fund of Knowledge: Adequate Attention and Concentration: Adequate Memory: Unremarkable Mood: Sad Affect: Sad Thought Process & Associations: Intact Thought Content: Appropriate Hallucination Type: None Delusion Type: None Suicidal Ideation: No Suicidal Plan: No Suicidal Intention: No Homicidal Ideation: No Homicidal Plan: No Homicidal Intention: No Insight: Poor Judgment: Poor Assessment and Plan - Plan Plan: Estimated LOS: [] days On psychiatric evaluation today the patient presents quite fragile, vulnerable, tearful, reporting symptomatology of depression in the context of conflicts with her significant mother and also severe insomnia. Patient reports that she has been having problems to do with frustration, impaired coping skills after about 3 days without sleeping, with increased sense of hopelessness, helplessness, worthlessness, poor appetite, weight loss, and persistent suicidal ideation that has led to a suicidal attempt. There is a patient with a psychiatric history of depression, anxiety, multiple psychiatric hospitalizations, suicide attempts in the past. For this reason the patient is at this moment at a very elevated risk of danger to self and she needs psychiatric admission for stabilization. I will restart the doxepin 25 mg at bedtime, Seroquel 50 mg at bedtime to help with mood and sleeping. Transfer patient to E. will consult psychiatry and hospitalist. Justification for Continued Inpatient Stay: Patient needs psychiatric admission for stabilization and safety
[2017-10-14] MEDS: Senna/Docusate Sodium 8.6/50 MG Tablet PO SCH (21:38)
[2017-10-14] MEDS: QUEtiapine 25 MG Tablet PO SCH (21:38)
[2017-10-14] MEDS: Pantoprazole Inj 40 MG Vial IV.PUSH SCH (21:38)
--- NOTE | 2017-10-14 22:09 | MB ---
cc: Rubens Rico MD DATE: 10/14/2017 REASON FOR GASTROINTESTINAL CONSULT: The patient is status post ingestion of Drano for apparent suicide attempt for severe depressive disorder. I was asked to evaluate her for evaluation of ongoing chronic dysphagia and recent odynophagia secondary adrenal consumption. HISTORY OF PRESENT ILLNESS: This is a 57-year-old female followed in my practice by Dr. Delgado. She has had several endoscopic evaluations and endoscopic dilations for dysphagia, which has been chronic and recurrent. She was last dilated endoscopically in August of this year. She states she is scheduled for a repeat session in October. No pathology was observed either endoscopically or on biopsy. The patient was admitted. She is now on the Psych Unit on the 4th floor at [facility]. She was initially admitted to the [facility]. She was cleared medically and sent to the Psych Unit for further treatment of her depressive disorder. I was contacted to evaluate her regarding her upper GI symptoms. She does have chronic dysphagia for an excessive length of time. She now complains of burning in the substernal area. She states that a little over 24 hours ago, she attempted to commit suicide by consuming Drano. She states she drank about 20 ounces out of a total of 80 ounces from the bottle that she had at home. Within a few minutes, she had urgent emesis. She denies any bleeding. Upon inspection of her mouth, I did not see any obvious burn thomas or caustic injury thomas around the lips or tongue. She is tolerating ice pops, and some clear liquid such as cranberry juice. She states it does hurt when swallowing. The patient does have a history of fibromyalgia, chronic GERD. She has had ongoing depression. She has taken some antidepressant medications in the past. She states she has not been sleeping. She has been having a terrible time with insomnia and constipation. She felt helpless and she attempted suicide as mentioned above because she could not cope with this any longer. PAST MEDICAL HISTORY: Includes chronic GERD, dysphagia, depression, fibromyalgia. SOCIAL HISTORY: She denies heavy alcohol use. She denies smoking. FAMILY HISTORY: She does not have any family history of significant gastrointestinal disease. ALLERGIES: 1. BACLOFEN. 2. TAPE. MEDICATIONS AT HOME: Include: 1. Omeprazole. 2. Fenofibrate. LABORATORY DATA: White count was 12, hemoglobin is 13.6. Electrolytes were stable. Liver enzymes were normal. Bilirubin was normal. CT of the abdomen and pelvis revealed a severe distal esophageal and gastric wall thickening suggestive of acute esophagitis and gastritis, perhaps due to caustic injuries. Also, multiple hepatic hemangiomas noted. A small right renal cyst was noted as well. REVIEW OF SYSTEMS: A 12-point review of systems is as stated in the HPI. She has had no gastrointestinal bleeding. PHYSICAL EXAMINATION: GENERAL: Well-developed female, appears apprehensive and flat affect. No acute distress at this time. VITAL SIGNS: Stable. She is afebrile. SKIN: Warm and dry. HEENT: Normocephalic, atraumatic. Sclerae are anicteric. Oral mucosa is moist. I do not appreciate any caustic injury to the oral cavity, tongue or lips. NECK: Supple. CARDIAC: S1, S2, regular rhythm. No murmurs. LUNGS: Clear to A and P. ABDOMEN: Flat, nontender. Bowel sounds are present. No organomegaly or masses. EXTREMITIES: Without clubbing, cyanosis, edema. NEUROLOGIC: She appears to be without any focal deficits. IMPRESSION: A 57-year-old female with a history of chronic dysphagia in the past, status post several dilations in the past by Dr. Delgado. The patient attempted to inflict personal damage with ingestion of caustic substance such as Drano. She does complain of odynophagia, as well. CT studies reveal severe distal esophagitis, gastritis. PLAN: At this time, I discussed the case with the patient. I have advised that we proceed with upper endoscopy in the morning to evaluate the extent of her injuries from the ingestion of Drano. At this time, I have increased her Protonix to twice a day. I have added Carafate slurry and viscous lidocaine as well. Would monitor her vital signs closely. Repeat CBC in the morning. Continue IV hydration. I explained to the patient that esophageal dilation would not be attempted at this point due to the possibility of caustic injury from Drano. Thank you kindly for this consult. MD CLARISA Regan/stefany , 07:55 PM , 08:08 PM
[2017-10-14] MEDS: Sucralfate Liq 1 GM/10 ML UDC PO SCH (22:12)
[2017-10-15 08:29] LABS: Anion Gap 10 meq/L (5-15); Blood Urea Nitrogen 12 mg/dL (7-18); Calcium 8.2 mg/dL (8.5-10.1); Carbon Dioxide 22.9 meq/L (21.0-32.0); Chloride 108 meq/L (98-107); Chol/HDL Ratio 1.94 Ratio; Cholesterol 114 mg/dL (120-200); Glomerular Filtration Rate Greater Than 89 mL/min (>89); Glucose,Random 107 mg/dL (74-106); HDL Cholesterol 58.6 mg/dL (40.0-60.0); LDL Cholesterol,Calculated 42 mg/dL (0-99); Potassium 3.1 meq/L (3.5-5.1); Sodium 141 meq/L (136-145); Triglycerides 66 mg/dL (42-150)
--- NOTE | 2017-10-15 08:42 | P.CON ---
History of Present Illness Consult date: 10/15/17 Requesting Physician: Alberto Melton Reason for Consult: Medical Management Primary Care Provider: UNKNOWN Family Provider: No Primary Care Physician Chief Complaint: Suicide attempt History of Present Illness: Emergency Medicine Notes: This is a pleasant 57-year-old female who presents after an overdose. Patient reports that she has been depressed, she has not been sleeping, reports a little after 6 PM today, she drank 2-3 cups of liquid Drano. Patient reports that she is just tired and depressed. She has been nauseous and has been vomiting after she drank the liquid Drano. She drove to her brother's house and told him what she did and he called for help. Patient presents under a [place]berg Act. Patient refuses to provide any further information. Hospitalist Notes: She was followed by Psychiatry specialist and GI specialist in Intensive Care Unit, she has chronic dysphagia in the past, status post several dilations by Dr. Delgado, she ingested a caustic substance Drano, complaint of Odynophagia CT revealed severe distal esophagitis and gastritis, was increased Protonix dose and recommended for EGD, added Carafate, slurry and viscous lidocaine, esophageal dilation is not possible due to caustic injury from Drano. after discuss with Psychiatry specialist she was transferred to Psych unit and continue management by GI specialistl Radiologic studies taken Abdomen/Pelvis CT 10/13/17 20:44 CONCLUSION: 1. Severe distal esophageal and gastric wall thickening suggestive of acute esophagitis and gastritis. Clinical correlation is recommended. 2. Multiple stable hepatic hemangiomas as described above. 3. Degenerative changes and scoliosis of lumbar spine. 4. Stable right renal cyst measuring 1.6 cm. Chest X-Ray 10/13/17 19:47 CONCLUSION: Negative examination. Review of Systems All other systems reviewed negative except as stated in HPI PMFSH - History History Provided By: Patient - Medical History Medical History: Medical History (Last Reviewed 10/14/17 @ 16:37 by Velma Omer) GERD (gastroesophageal reflux disease) (Acute) Depression (Acute) Fibromyalgia - Tobacco History Second Hand Smoke Exposure: No Smoking Status: Never smoker - Alcohol History How Often Do You Have a Drink Containing Alcohol: Never - Substance Use History Substance History: No History of Abuse, Active Abuse - Substance Use Type Marijuana Frequency: used once for sleep Reason for Use: Sleep Comment: Pt reports benzo xanax was found in her tox screen due to obtaining from partner: use for sleep Medications and Allergies Active Medications: Active Medications Al Hydrox/Mg Hydrox/Simethicone (Mag-Al Plus Susp Liq) 30 ml PO Q6H PRN PRN Reason: DYSPEPSIA Al Hydroxide/Mg Hydroxide (Milk Of Magnesia Liq) 30 ml PO Q12H PRN PRN Reason: Mild Constipation Bisacodyl (Dulcolax Supp) 10 mg RECTAL DAILY PRN PRN Reason: SEVERE CONSITIPATION Doxepin HCl (Sinequan) 50 mg PO [facility] Last Admin: 10/14/17 21:38 Dose: 50 mg Lactulose (Lactulose Liq) 30 ml PO DAILY PRN PRN Reason: SEVERE CONSITIPATION Lidocaine HCl (Xylocaine 2% Viscous) 5 ml PO Q3H PRN PRN Reason: FOR PAIN Last Admin: 10/14/17 21:39 Dose: 5 ml Pantoprazole Sodium (Protonix Inj) 40 mg IV.PUSH BID [facility] Last Admin: 10/14/17 21:38 Dose: 40 mg Quetiapine Fumarate (Seroquel) 50 mg PO [facility] Last Admin: 10/14/17 21:38 Dose: 50 mg Senna/Docusate Sodium (Gloria-Colace) 1 tab PO BID [facility] Last Admin: 10/14/17 21:38 Dose: 1 tab Sennosides (Senokot) 17.2 mg PO Q12H PRN PRN Reason: Moderate Constipation Sucralfate (Carafate Liq) 1 gm PO QID [facility] Last Admin: 10/14/17 22:12 Dose: 1 gm Allergies Allergy/AdvReac Type Severity Reaction Status Date / Time baclofen Allergy Severe Irritabilit Verified 10/13/17 20:19 y/Anxiety TAPE AdvReac Unknown Rash, Uncoded 10/13/17 20:19 Generalized Home Medications Medication Instructions Recorded Confirmed Type fenofibrate 50 mg PO DAILY 10/13/17 10/13/17 History morphine 15 mg PO Q6H 10/13/17 10/13/17 History omeprazole 20 mg PO DAILY 10/13/17 10/13/17 History Physical Exam Vital signs: Vital Signs 10/14/17 16:55 10/15/17 05:51 Temperature 98.7 F 97.3 F L Pulse Rate 106 H 85 Respiratory Rate 17 15 Blood Pressure 129/85 130/70 Pulse Oximetry 95 Intake & Output 10/14/17 10/15/17 10/15/17 18:59 06:59 18:59 Intake Total 600 / 600 Balance 600 / 600 Weight 54.8 kg 55.1 kg Intake: Oral 600 / 600 Other: # Voids 1 Weight On Admission 54.8 kg Narrative: GENERAL: This is a well-nourished, well-developed patient, in no apparent distress. CARDIOVASCULAR: Regular rate and rhythm without murmurs, gallops, or rubs. RESPIRATORY: Clear to auscultation. Breath sounds equal bilaterally. No wheezes , rales, or rhonchi. GASTROINTESTINAL: Abdomen soft, generalized tenderness. MUSCULOSKELETAL: Extremities without clubbing, cyanosis, or edema. NEURO: Alert & Oriented x4 to person, place, time, situation. Moves all ext x4 Assessment and Plan - Plan Caustics ingestion -Poison Control Center notified by ED with recommendation of GI consultation and supportive care -at this time NPO awaiting for GI specialist for EGD later today. -CT abdomen pelvis negative for perforation Suicide attempt -Underlying depression, psychiatry specialist following. GERD -Protonix IV twice daily Hypokalemia and Hypomagnesemia replaced and following. DVT GI prophylaxis -Teds SCDs -Subcu heparin -Tonics IV twice daily Code Status: Full Code. Discussed Condition With: Patient and nurse. Discharge Planning: as per attending physician.
[2017-10-15 08:55] LABS: Hematocrit 36.1 % (35.0-46.0); Hemoglobin 12.3 gm/dL (11.6-15.3); Mean Corpuscular Hemoglobin 30.2 pg (27.0-34.0); Mean Corpuscular Volume 88.6 fL (80.0-100.0); Mean Platelet Volume 8.2 fL (7.0-11.0); Platelet Count 272 th/mm3 (150-450); Red Blood Count 4.08 mil/mm3 (4.00-5.30); Red Cell Distribution Width 12.8 % (11.6-17.2); White Blood Count 14.8 th/mm3 (4.0-11.0)
[2017-10-15] MEDS: Sucralfate Liq 1 GM/10 ML UDC PO SCH ×4 (11:36→22:56)
[2017-10-15] MEDS: Senna/Docusate Sodium 8.6/50 MG Tablet PO SCH ×2 (11:36→22:53)
[2017-10-15] MEDS ORDERED: Lidocaine PF 1% Inj 5 ML Syringe INFILTRATN ONE (12:00)
[2017-10-15] MEDS ORDERED: Magnesium Sulfate Inj 2 GM in Sodium Chlor 0.9% Inj 96 ML IV.SIG ONE (15:03)
[2017-10-15 16:03] LABS: Hemoglobin A1c 5.3 % (4.3-6.0)
[2017-10-15] MEDS: Potassium Chlor 10 mEq Premix 10 MEQ/100 ML PIGGYBACK IV.SIG SCH ×3 (16:59→23:43)
--- NOTE | 2017-10-15 17:23 | P.PNPSY ---
Subjective Remarks: Attempted to see patient today for a progress note and second opinion Shakira hester. Patient is down in the GI lab for an extended procedure. I will follow up with patient tomorrow morning. Patient was discussed with nursing staff, and chart reviewed. Review of Systems All other systems reviewed negative except as stated in HPI Mental Status Examination Appearance: Appropriate (Unable to ascertain mental status exam today 10/15) Consciousness: Alert Orientation: x4 Motor Activity: Normal gait Speech: Unremarkable Language: Adequate Fund of Knowledge: Adequate Attention and Concentration: Adequate Memory: Unremarkable Mood: Sad Affect: Sad Thought Process & Associations: Intact Thought Content: Appropriate Hallucination Type: None Delusion Type: None Suicidal Ideation: No Suicidal Plan: No Suicidal Intention: No Homicidal Ideation: No Homicidal Plan: No Homicidal Intention: No Insight: Poor Judgment: Poor Assessment and Plan - Plan Plan: We will do further evaluation of patient tomorrow at the present time patient is unavailable due to being in the middle of a GI lab procedure Justification for Continued Inpatient Stay: At this time patient would decompensate a place to a lower level of Discharge Planning: To be determined
[2017-10-15] MEDS: Pantoprazole Inj 40 MG Vial IV.PUSH SCH ×2 (17:37→22:54)
[2017-10-15] MEDS ORDERED: Morphine Sulfate Inj 2 MG/ML Vial IV.PUSH PRN (18:44)
--- NOTE | 2017-10-15 19:39 | MR ---
cc: Rubens Rico MD DATE: 10/15/2017 INDICATIONS FOR PROCEDURE: The patient had an episode of severe depression and attempted suicide by consumption of Drano. Upper endoscopy is being performed to assess any caustic injury to the esophagus. Photographs were taken. No biopsies were taken. Premedication was administered by Anesthesiology. Monitoring was with constant pulse oximetry, EKG, blood pressure monitor. PROCEDURE NOTE: After informed consent was obtained. The procedure, risks and benefits were explained, including risks of bleeding, sepsis, perforation, risk of anesthesia. The patient was placed in left lateral position. The video endoscope was inserted per the oral route. There was some noted erythema in the posterior pharyngeal area. No ulcerations were noted. The vocal cords appeared to be normal. The scope was gently passed through this region. There was mild to moderate erythema in the proximal esophagus but, as we proceeded forward, the most distal portion of the upper third of the esophagus and the entire rest of the esophagus revealed severe caustic esophagitis. There appeared to be several strips of what appeared to be sloughing esophageal mucosa in a long longitudinal fashion. Attempt to remove these was not done at this time. Multiple photographs were taken. As we extended distally, the esophagitis did become worse with severe erythema, friability, etc., all probably secondary to the ingestion of the caustic agent previously mentioned. No obvious stricture was seen. EG junction had multiple areas of ulceration as well. The stomach was entered. It was a small pool of 100 mL of bile that was suctioned out. The gastric mucosa also appeared to be erythematous, edematous with some linear bands of ulceration as well. No active bleeding was noted. The scope was briefly retroflexed. The cardia and fundus, except for some slight erythema, appeared to be unremarkable per se. The pyloric and prepyloric regions also revealed erythema. The pylorus was patent. The duodenal bulb, first, second and third portion of the duodenum were unremarkable. The scope was then gradually withdrawn, again carefully examining the upper GI tract with as little insufflation of air as possible. Incidentally, the air was turned down 50%. No biopsies were attempted at this time. We documented as much as possible with photographs. The severe esophagitis, gastritis previously mentioned was noted. The scope was withdrawn. The patient tolerated the procedure well. She was sent to recovery room in stable condition. IMPRESSION: This examination revealed severe esophagitis and gastritis, most likely secondary to the patient's history of consumption of a commercial product Drano as a form of a suicide attempt. RECOMMENDATIONS: I would continue aggressive medical therapy including twice a day IV PPI, Carafate 4 times a day, antacids, lidocaine gel to relieve some of the swallowing difficulty and odynophagia and also pain medications for analgesia. I would attempt only clear liquids for now if possible. I would encourage ice chips and icicles as well. I would carefully monitor her vital signs and if the patient develops further upper GI difficulties consider repeat imaging studies such as CT scan of the chest and abdomen. We will follow the patient closely with you. MD CLARISA Regan/stefany , 05:53 PM , 06:10 PM
[2017-10-15] MEDS: Morphine Inj 4 MG/ML Vial IV.PUSH PRN (21:42)
[2017-10-15] MEDS: QUEtiapine 25 MG Tablet PO SCH (22:53)
[2017-10-16] MEDS: Potassium Chlor 10 mEq Premix 10 MEQ/100 ML PIGGYBACK IV.SIG SCH ×2 (01:41→21:52)
[2017-10-16] MEDS: Morphine Inj 4 MG/ML Vial IV.PUSH PRN ×5 (01:42→21:37)
[2017-10-16 08:29] LABS: Anion Gap 9 meq/L (5-15); Blood Urea Nitrogen 12 mg/dL (7-18); Calcium 7.9 mg/dL (8.5-10.1); Carbon Dioxide 24.6 meq/L (21.0-32.0); Chloride 109 meq/L (98-107); Glomerular Filtration Rate Greater Than 89 mL/min (>89); Glucose,Random 81 mg/dL (74-106); Potassium 3.2 meq/L (3.5-5.1); Sodium 143 meq/L (136-145)
--- NOTE | 2017-10-16 08:50 | P.PN ---
Subjective Interval history: Emergency Medicine Notes: This is a pleasant 57-year-old female who presents after an overdose. Patient reports that she has been depressed, she has not been sleeping, reports a little after 6 PM today, she drank 2-3 cups of liquid Drano. Patient reports that she is just tired and depressed. She has been nauseous and has been vomiting after she drank the liquid Drano. She drove to her brother's house and told him what she did and he called for help. Patient presents under a Rosenberg Act. Patient refuses to provide any further information. Hospitalist Notes: She was followed by Psychiatry specialist and GI specialist in Intensive Care Unit, she has chronic dysphagia in the past, status post several dilations by Dr. Delgado, she ingested a caustic substance Drano, complaint of Odynophagia CT revealed severe distal esophagitis and gastritis, was increased Protonix dose and recommended for EGD, added Carafate, slurry and viscous lidocaine, esophageal dilation is not possible due to caustic injury from Drano. after discuss with Psychiatry specialist she was transferred to Psych unit and continue management by GI specialist 10/16: Stable in her bedroom discussed with nurse, will continue to follow vital signs, and signs of esophageal rupture close follow up as recommended by GI specialist. GI following and Psychiatry specialist. no nausea, vomit or diarrhea. Physical Exam Vital signs: Vital Signs 10/15/17 18:21 10/15/17 20:00 10/16/17 05:31 Temperature 96.4 F L 96.3 F L Pulse Rate 100 H 86 Respiratory Rate 18 18 17 Blood Pressure 128/94 H 146/75 H Pulse Oximetry 99 95 Intake & Output 10/15/17 10/16/17 10/16/17 18:59 06:59 18:59 Intake Total 600 / 600 760 / 760 240 / 240 Balance 600 / 600 760 / 760 240 / 240 Intake: IV 100 / 100 400 / 400 KCl 10 mEq Premix Inj 10 meq In 100 / 100 200 / 200 100 ml @ 100 mls/hr IV.SIG Q1H SHANTAL Rx#:[id number] Oral 0 / 0 360 / 360 240 / 240 Anesthesia Amount 500 / 500 Other: # Voids 2 1 Narrative: GENERAL: No acute distress. lips with necrotic superficial changes. CARDIOVASCULAR: Regular rate and rhythm without murmurs, gallops, or rubs. RESPIRATORY: Clear to auscultation. Breath sounds equal bilaterally. No wheezes , rales, or rhonchi. GASTROINTESTINAL: Abdomen soft, generalized tenderness. MUSCULOSKELETAL: Extremities without clubbing, cyanosis, or edema. NEURO: Alert & Oriented x4 to person, place, time, situation. Moves all ext x4 Results - Labs CBC & Chem 7: 10/15/17 07:23 10/16/17 07:33 Laboratory Results - last 24 hr 10/15/17 10/15/17 10/15/17 07:23 07:23 07:23 WBC 14.8 H RBC 4.08 Hgb 12.3 Hct 36.1 MCV 88.6 MCH 30.2 MCHC 34.0 RDW 12.8 Plt Count 272 MPV 8.2 Sodium Potassium Chloride Carbon Dioxide Anion Gap BUN Creatinine Estimated GFR Random Glucose Hemoglobin A1c 5.3 Calcium Magnesium 1.8 10/16/17 07:33 WBC RBC Hgb Hct MCV MCH MCHC RDW Plt Count MPV Sodium 143 Potassium 3.2 L Chloride 109 H Carbon Dioxide 24.6 Anion Gap 9 BUN 12 Creatinine 0.52 Estimated GFR Greater than 89 Random Glucose 81 Hemoglobin A1c Calcium 7.9 L Magnesium - Imaging Abdomen/Pelvis CT 10/13/17 20:44 CONCLUSION: 1. Severe distal esophageal and gastric wall thickening suggestive of acute esophagitis and gastritis. Clinical correlation is recommended. 2. Multiple stable hepatic hemangiomas as described above. 3. Degenerative changes and scoliosis of lumbar spine. 4. Stable right renal cyst measuring 1.6 cm. Chest X-Ray 10/13/17 19:47 CONCLUSION: Negative examination. - Procedures EGD 10/15/17 IMPRESSION: This examination revealed severe esophagitis and gastritis, most likely secondary to the patient's history of consumption of a commercial product Drano as a form of a suicide attempt. RECOMMENDATIONS: I would continue aggressive medical therapy including twice a day IV PPI, Carafate 4 times a day, antacids, lidocaine gel to relieve some of the swallowing difficulty and odynophagia and also pain medications for analgesia. I would attempt only clear liquids for now if possible. I would encourage ice chips and icicles as well. I would carefully monitor her vital signs and if the patient develops further upper GI difficulties consider repeat imaging studies such as CT scan of the chest and abdomen. We will follow the patient closely with you. Rubens Rico MD Assessment and Plan - Plan Caustics ingestion -Poison Control Center notified by ED with recommendation of GI consultation and supportive care -CT abdomen pelvis negative for perforation -Status post EGD 10/15/17 with Severe Esophagitis and Gastritis, recommended to continue PPIs IV and Carafate 4 times a day, Antacids, Lidocaine gel, clear liquid diet for now, vigilant for vital signs if develops GI difficulties consider to repeat CT of chest and abdomen. by GI specialist Dr. Rubens Rico evident superficial necrosis to the lips mouth clean lip balm placed. Suicide attempt -Underlying depression, psychiatry specialist following. GERD -Protonix IV twice daily Hypokalemia and Hypomagnesemia replaced and following. DVT GI prophylaxis -Teds SCDs -Subcu heparin -Tonics IV twice daily Code Status: Full code. Discussed Condition With: Patient and nurse. Discharge Planning: as per attending physician.
--- NOTE | 2017-10-16 09:30 | P.PNPSY ---
Subjective Remarks: Patient seen in her room with nurse Yeimy, patient laying quietly in bed with sad face, chart reviewed, consultants notes from GI service reviewed and appreciated. Patient was spurring responses to my questions though goal oriented. She remains depressed and tearful. It appears she was an on again relationship with a woman for about 4 years that broke up though there is still living in the same house for some reason. She acknowledges continued suicidality to the point where she would take the suicide pill if offered. She complains of anxiety complaints of significant insomnia. However she is still on clear liquids only. We will offer her Atarax liquid 30 mg at bedtime to see if this would assist with her sleep. Now continue treatment. At this time patient does meet criteria for inpatient hospitalization of the Rosenberg act Dr. Alves is done first opinion petition supporting Rosenberg act I agree patient meets criteria for involuntary psychiatric hospitalization thus I will cosign second opinion petition supporting Rosenberg act Review of Systems All other systems reviewed negative except as stated in HPI Mental Status Examination Appearance: Appropriate (Unable to ascertain mental status exam today 10/15) Consciousness: Alert Orientation: x4 Motor Activity: Normal gait Speech: Unremarkable Language: Adequate Fund of Knowledge: Adequate Attention and Concentration: Adequate Memory: Unremarkable Mood: Sad, Anxious, Other (Mildly tearful) Affect: Other (Decreased range and intensity) Thought Process & Associations: Intact Thought Content: Appropriate Hallucination Type: None Delusion Type: None Suicidal Ideation: No Suicidal Plan: No Suicidal Intention: No Homicidal Ideation: No Homicidal Plan: No Homicidal Intention: No Insight: Poor Judgment: Poor Assessment and Plan - Plan Plan: For now we will continue following diet recommendations of GI service. We will offer her the Atarax liquid at at bedtime She will help with his sleep. I did send second opinion petition supporting Rosenberg act. Patient remains quite suicidal Justification for Continued Inpatient Stay: At this time patient would decompensate a place to a lower level of care Discharge Planning: To be determined
--- NOTE | 2017-10-16 09:36 | P.PNGI ---
Subjective Interval history: Pt c/o odynophagia tolerating clear liquids recieving carafte, ppi lidocaine and MSO prn pain VSS Physical Exam Vital signs: Vital Signs 10/15/17 18:21 10/15/17 20:00 10/16/17 05:31 Temperature 96.4 F L 96.3 F L Pulse Rate 100 H 86 Respiratory Rate 18 18 17 Blood Pressure 128/94 H 146/75 H Pulse Oximetry 99 95 Intake & Output 10/15/17 10/16/17 10/16/17 18:59 06:59 18:59 Intake Total 600 / 600 760 / 760 240 / 240 Balance 600 / 600 760 / 760 240 / 240 Intake: IV 100 / 100 400 / 400 KCl 10 mEq Premix Inj 10 meq In 100 / 100 200 / 200 100 ml @ 100 mls/hr IV.SIG Q1H SHANTAL Rx#:[id number] Oral 0 / 0 360 / 360 240 / 240 Anesthesia Amount 500 / 500 Other: # Voids 2 1 - Constitutional no acute distress - Routine HEENT Exam ENT: Present: mucous membranes moist Comments: caustic patel on lips noted today, tongue is ok - Routine Respiratory Exam Present: CTA bilaterally - Routine Cardiovascular Exam Present: RRR, S1, S2 - Routine Abdominal Exam Present: soft, normoactive bowel sounds Comments: nontender Results - Labs CBC & Chem 7: 10/15/17 07:23 10/16/17 07:33 Laboratory Results - last 24 hr 10/15/17 10/16/17 07:23 07:33 Sodium 143 Potassium 3.2 L Chloride 109 H Carbon Dioxide 24.6 Anion Gap 9 BUN 12 Creatinine 0.52 Estimated GFR Greater than 89 Random Glucose 81 Hemoglobin A1c 5.3 Calcium 7.9 L - Procedures EGD 10/15/17 IMPRESSION: This examination revealed severe esophagitis and gastritis, most likely secondary to the patient's history of consumption of a commercial product Drano as a form of a suicide attempt. RECOMMENDATIONS: I would continue aggressive medical therapy including twice a day IV PPI, Carafate 4 times a day, antacids, lidocaine gel to relieve some of the swallowing difficulty and odynophagia and also pain medications for analgesia. I would attempt only clear liquids for now if possible. I would encourage ice chips and icicles as well. I would carefully monitor her vital signs and if the patient develops further upper GI difficulties consider repeat imaging studies such as CT scan of the chest and abdomen. We will follow the patient closely with you. Rubens Rico MD Assessment and Plan - Plan Caustic injury to lips, esophagus and stomach from Drano ingestion.....severe esophagitis/ gastritis per EGD evaluation - Attending Attestation Continue present management add ensure or Boost Monitor closely may need TPN later on if nutrition poor
[2017-10-16] MEDS: Sucralfate Liq 1 GM/10 ML UDC PO SCH ×3 (09:42→21:40)
[2017-10-16] MEDS: Senna/Docusate Sodium 8.6/50 MG Tablet PO SCH ×2 (09:43→20:27)
[2017-10-16] MEDS ORDERED: Potassium Chlor 10 mEq Premix 10 MEQ/100 ML PIGGYBACK IV.SIG SCH (10:00)
[2017-10-16] MEDS: Pantoprazole Inj 40 MG Vial IV.PUSH SCH ×2 (10:01→22:27)
[2017-10-16] MEDS: QUEtiapine 25 MG Tablet PO SCH (20:27)
[2017-10-16] MEDS ORDERED: Magnesium Sulfate Inj 2 GM in Sodium Chlor 0.9% Inj 96 ML IV.SIG ONE (21:00)
[2017-10-17] MEDS: Potassium Chlor 10 mEq Premix 10 MEQ/100 ML PIGGYBACK IV.SIG SCH ×3 (02:08→06:29)
[2017-10-17] MEDS: Morphine Inj 4 MG/ML Vial IV.PUSH PRN ×3 (02:16→16:07)
--- NOTE | 2017-10-17 08:12 | P.PNPSY ---
Subjective Remarks: Patient seen in her room with nurse Saroj, chart reviewed, patient awake calm continues depressed and tearful states the liquid oral Atarax did not help at all with his sleep. We will discontinue that we will add Benadryl 50 mg IM at at bedtime to see if that will help with his sleep. She continues to voice suicidal ideation and a willingness to take the suicide pill. She would wish to talk over pastoral counselors also order along with OT Review of Systems All other systems reviewed negative except as stated in HPI Mental Status Examination Appearance: Appropriate (Unable to ascertain mental status exam today 10/15) Consciousness: Alert Orientation: x4 Motor Activity: Normal gait Speech: Unremarkable Language: Adequate Fund of Knowledge: Adequate Attention and Concentration: Adequate Memory: Unremarkable Mood: Sad, Anxious, Other (Mildly tearful) Affect: Other (Decreased range and intensity) Thought Process & Associations: Intact Thought Content: Appropriate Hallucination Type: None Delusion Type: None Suicidal Ideation: No Suicidal Plan: No Suicidal Intention: No Homicidal Ideation: No Homicidal Plan: No Homicidal Intention: No Insight: Poor Judgment: Poor Assessment and Plan - Plan Plan: Patient continues depressed and suicidal with significant sleep issues she medication adjustments above and referrals above Justification for Continued Inpatient Stay: At this time patient would decompensate a place to a lower level of care Discharge Planning: To be determined
[2017-10-17] MEDS: Sucralfate Liq 1 GM/10 ML UDC PO SCH ×5 (08:54→21:34)
[2017-10-17] MEDS: Senna/Docusate Sodium 8.6/50 MG Tablet PO SCH ×2 (08:59→21:15)
[2017-10-17] MEDS: Dimethicone/Oxybenzone-Padimate Lip Balm 4.25 GM Tube TOPICAL PRN (09:33)
[2017-10-17] MEDS: Pantoprazole Inj 40 MG Vial IV.PUSH SCH ×3 (09:33→21:14)
[2017-10-17 09:38] LABS: Anion Gap 9 meq/L (5-15); Blood Urea Nitrogen 6 mg/dL (7-18); Carbon Dioxide 26.7 meq/L (21.0-32.0); Chloride 106 meq/L (98-107); Glomerular Filtration Rate Greater Than 89 mL/min (>89); Glucose,Random 99 mg/dL (74-106); Potassium 3.2 meq/L (3.5-5.1); Sodium 142 meq/L (136-145)
--- NOTE | 2017-10-17 09:42 | P.PNGI ---
Subjective Interval history: Pt still complains of pain w swallowing... cannot swallow ensure but clears ok except jello Physical Exam Vital signs: Vital Signs 10/16/17 10:00 10/16/17 17:30 10/16/17 20:00 Temperature 97.6 F Pulse Rate 86 Respiratory Rate 4 L 18 18 Blood Pressure 142/78 H Pulse Oximetry 100 10/17/17 06:00 Temperature 98.8 F Pulse Rate 93 H Respiratory Rate 16 Blood Pressure 143/82 H Pulse Oximetry 98 Intake & Output 10/16/17 10/17/17 10/17/17 18:59 06:59 18:59 Intake Total 360 / 360 560 / 560 Balance 360 / 360 560 / 560 Intake: IV 300 / 300 KCl 10 mEq Premix Inj 10 meq In 300 / 300 100 ml @ 100 mls/hr IV.SIG Q1H SHANTAL Rx#:[id number] Oral 360 / 360 260 / 260 Other: # Voids 1 - Constitutional no acute distress - Routine Respiratory Exam Present: CTA bilaterally - Routine Cardiovascular Exam Present: RRR, S1, S2 - Routine Abdominal Exam Present: soft, normoactive bowel sounds - Routine Skin Exam Present: dry, warm Results - Labs CBC & Chem 7: 10/15/17 07:23 10/16/17 07:33 - Procedures EGD 10/15/17 IMPRESSION: This examination revealed severe esophagitis and gastritis, most likely secondary to the patient's history of consumption of a commercial product Drano as a form of a suicide attempt. RECOMMENDATIONS: I would continue aggressive medical therapy including twice a day IV PPI, Carafate 4 times a day, antacids, lidocaine gel to relieve some of the swallowing difficulty and odynophagia and also pain medications for analgesia. I would attempt only clear liquids for now if possible. I would encourage ice chips and icicles as well. I would carefully monitor her vital signs and if the patient develops further upper GI difficulties consider repeat imaging studies such as CT scan of the chest and abdomen. We will follow the patient closely with you. Rubens Rico MD Assessment and Plan (1) Suicidal behavior Status: Acute Code(s): R46.89 - Other symptoms and signs involving appearance and behavior (2) Caustic burn of esophagus Status: Acute Code(s): T28.6XXA - Corrosion of esophagus, initial encounter (3) Caustic injury gastritis Status: Acute Code(s): K29.60 - Other gastritis without bleeding (4) Odynophagia Status: Acute Code(s): R13.10 - Dysphagia, unspecified - Plan Have added maalox q 6 hr to carafate and ppi therapy ......if prlonged decreased po may need ppn as well. monitor closely for now
[2017-10-17 10:09] LABS: Magnesium 1.8 mg/dL (1.5-2.5)
[2017-10-17] MEDS: Aluminum/Magnesium/Simethacone Susp 30 ML UDC PO SCH ×4 (10:58→21:35)
[2017-10-17 12:03] LABS: Baso % (Auto) 0.5 % (0.0-2.0); Eos % (Auto) 0.4 % (0.0-4.0); Lymph # (Auto) 1.4 th/mm3 (1.0-4.8); Lymph % (Auto) 22.5 % (9.0-44.0); Mean Corpuscular HGB Conc 34.3 % (32.0-36.0); Mean Corpuscular Hemoglobin 30.4 pg (27.0-34.0); Mean Corpuscular Volume 88.7 fL (80.0-100.0); Mean Platelet Volume 7.9 fL (7.0-11.0); Mono # (Auto) 0.4 th/mm3 (0.0-0.9); Mono % (Auto) 5.9 % (0.0-8.0); Neut # (Auto) 4.3 th/mm3 (1.8-7.7); Neut % (Auto) 70.7 % (16.0-70.0); Platelet Count 273 th/mm3 (150-450); Red Blood Count 3.95 mil/mm3 (4.00-5.30); Red Cell Distribution Width 12.9 % (11.6-17.2); White Blood Count 6.1 th/mm3 (4.0-11.0)
--- NOTE | 2017-10-17 14:49 | P.PN ---
Subjective Interval history: Follow-up on patient with suicide attempt via drinking Drano. Patient seen and examined. Patient continues to have significant pain with swallowing. She reports occasional cough/choking with swallowing. She complains of nausea but no vomiting. She also continues to have abdominal pain but states it is improved some. She is able tolerate a clear liquid diet. She denies any fever or chills. She does report chest pain but states it is in the middle of her chest and associated with swallowing. Physical Exam Vital signs: Vital Signs 10/16/17 17:30 10/16/17 20:00 10/17/17 06:00 Temperature 97.6 F 98.8 F Pulse Rate 86 93 H Respiratory Rate 18 18 16 Blood Pressure 142/78 H 143/82 H Pulse Oximetry 100 98 Intake & Output 10/16/17 10/17/17 10/17/17 18:59 06:59 18:59 Intake Total 360 / 360 560 / 560 200 / 200 Balance 360 / 360 560 / 560 200 / 200 Intake: IV 300 / 300 200 / 200 KCl 10 mEq Premix Inj 10 meq In 300 / 300 100 / 100 100 ml @ 100 mls/hr IV.SIG Q1H SHANTAL Rx#:[id number] Oral 360 / 360 260 / 260 0 / 0 Other: # Voids 1 Narrative: GENERAL: WDWN female, INAD. Awake and alert. SKIN: Warm and dry. +necrotic skin changes on lips. HEENT: Atraumatic. Normocephalic. Pupils equal and round. No scleral icterus. No injection or drainage. No nasal bleeding or discharge. Mucous membranes pink and moist. NECK: Trachea midline. CARDIOVASCULAR: Regular rate and rhythm. RESPIRATORY: No accessory muscle use. Clear to auscultation. Breath sounds equal bilaterally. GASTROINTESTINAL: Abdomen soft, nondistended. +diffuse tenderness to palpation. +BS. MUSCULOSKELETAL: Extremities without clubbing, cyanosis, or edema. No obvious deformities. NEUROLOGICAL: Awake and alert. No obvious cranial nerve deficits. Motor grossly within normal limits. Able to move extremities spontaneously. Normal speech. PSYCHIATRIC: Depressed affect. Judgment and insight poor. Results - Labs CBC & Chem 7: 10/17/17 11:36 10/17/17 08:45 Laboratory Results - last 24 hr 10/17/17 10/17/17 10/17/17 08:45 08:45 11:36 WBC 6.1 RBC 3.95 L Hgb 12.0 Hct 35.0 MCV 88.7 MCH 30.4 MCHC 34.3 RDW 12.9 Plt Count 273 MPV 7.9 Neut % (Auto) 70.7 H Lymph % (Auto) 22.5 [place] % (Auto) 5.9 Eos % (Auto) 0.4 Baso % (Auto) 0.5 Neut # (Auto) 4.3 Lymph # (Auto) 1.4 [place] # (Auto) 0.4 Eos # (Auto) 0.0 Baso # (Auto) 0.0 WBC Differential . Differential Comment Auto diff final Sodium 142 Potassium 3.2 L Chloride 106 Carbon Dioxide 26.7 Anion Gap 9 BUN 6 L Creatinine 0.52 Estimated GFR Greater than 89 Random Glucose 99 Calcium 8.0 L Magnesium 1.8 Cancelled - Procedures EGD 10/15/17 IMPRESSION: This examination revealed severe esophagitis and gastritis, most likely secondary to the patient's history of consumption of a commercial product Drano as a form of a suicide attempt. RECOMMENDATIONS: I would continue aggressive medical therapy including twice a day IV PPI, Carafate 4 times a day, antacids, lidocaine gel to relieve some of the swallowing difficulty and odynophagia and also pain medications for analgesia. I would attempt only clear liquids for now if possible. I would encourage ice chips and icicles as well. I would carefully monitor her vital signs and if the patient develops further upper GI difficulties consider repeat imaging studies such as CT scan of the chest and abdomen. We will follow the patient closely with you. Rubens Rico MD Assessment and Plan - Plan 57-year-old female admitted to inpatient psychiatry following a suicide attempt by drinking Drano Depression Suicide attempt -Management per psychiatry Severe gastritis and esophagitis Odynophagia History of chronic dysphasia status post multiple dilations in the past Patient drank 2-3 cups of liquid Drano -GI following, appreciate expertise. Status post EGD 10/15 revealing severe esophagitis and gastritis secondary to consumption of caustic liquid Drano. Per GI, continue with aggressive medical therapy to include IV PPI twice daily, Carafate 4 times daily, antacids, lidocaine gel, clear liquid diet. Repeat CT scan of the chest and abdomen for any upper GI difficulties. -Continue to follow vital signs and any evidence of esophageal rupture closely. Monitor for hypersalivation, drooling, stridor, etc. -We will obtain swallow evaluation by speech therapy -Pain management with bowel regimen -Antiemetics as needed -continue on clear liquid diet. Monitor oral intake. Hypokalemia -IV repletion ordered -Repeat BMP in a.m. DVT prophylaxis -bilateral SCD/RICCI hose Code Status: FULL Discussed Condition With: Patient, nursing staff, Dr. Allen
[2017-10-17] MEDS: Potassium Chlor 20 mEq Premix 20 MEQ/100 ML PIGGYBACK IV.SIG SCH ×2 (16:06→17:54)
[2017-10-17] MEDS: QUEtiapine 25 MG Tablet PO SCH (21:15)
[2017-10-18 07:58] LABS: Anion Gap 13 meq/L (5-15); Aspartate Aminotransferase 19 U/L (15-37); Blood Urea Nitrogen 8 mg/dL (7-18); Calcium 8.2 mg/dL (8.5-10.1); Carbon Dioxide 25.2 meq/L (21.0-32.0); Chloride 104 meq/L (98-107); Glomerular Filtration Rate Greater Than 89 mL/min (>89); Glucose,Random 83 mg/dL (74-106); Potassium 3.4 meq/L (3.5-5.1); Sodium 142 meq/L (136-145)
[2017-10-18 08:01] LABS: Alanine Aminotransferase 16 U/L (10-53); Alkaline Phosphatase 50 U/L (45-117); Total Protein 6.5 g/dL (6.4-8.2)
[2017-10-18] MEDS: Morphine Inj 4 MG/ML Vial IV.PUSH PRN ×2 (09:11→15:29)
[2017-10-18] MEDS: Pantoprazole Inj 40 MG Vial IV.PUSH SCH ×2 (09:37→20:51)
[2017-10-18] MEDS: Sucralfate Liq 1 GM/10 ML UDC PO SCH ×4 (09:38→20:51)
[2017-10-18] MEDS: Aluminum/Magnesium/Simethacone Susp 30 ML UDC PO SCH ×4 (09:38→20:52)
[2017-10-18] MEDS: Senna/Docusate Sodium 8.6/50 MG Tablet PO SCH (09:38)
--- NOTE | 2017-10-18 13:02 | P.PNGI ---
Subjective Interval history: Alert still smae sxs not eating secondary to painful swallowing Physical Exam Vital signs: Vital Signs 10/17/17 17:53 10/18/17 05:14 Temperature 98.1 F 97.8 F Pulse Rate 83 96 H Respiratory Rate 18 16 Blood Pressure 157/86 H 113/75 Pulse Oximetry 97 96 Intake & Output 10/17/17 10/18/17 10/18/17 18:59 06:59 18:59 Intake Total 480 / 480 210 / 210 Balance 480 / 480 210 / 210 Intake: IV 300 / 300 KCl 10 mEq Premix Inj 10 meq In 100 / 100 100 ml @ 100 mls/hr IV.SIG Q1H SHANTAL Rx#:[id number] KCl 20 mEq Premix Inj 20 meq In 100 / 100 100 ml @ 50 mls/hr IV.SIG Q2H SHANTAL Rx#:[id number] Oral 180 / 180 210 / 210 Other: # Voids 2 1 - Constitutional no acute distress - Routine Respiratory Exam Present: CTA bilaterally - Routine Cardiovascular Exam Present: RRR, S1, S2 - Routine Abdominal Exam Present: soft, normoactive bowel sounds Results - Labs CBC & Chem 7: 10/17/17 11:36 10/18/17 07:10 Laboratory Results - last 24 hr 10/18/17 07:10 Sodium 142 Potassium 3.4 L Chloride 104 Carbon Dioxide 25.2 Anion Gap 13 BUN 8 Creatinine 0.44 L Estimated GFR Greater than 89 Random Glucose 83 Calcium 8.2 L Total Bilirubin 0.5 AST 19 ALT 16 Alkaline Phosphatase 50 Total Protein 6.5 Albumin 3.0 L - Procedures EGD 10/15/17 IMPRESSION: This examination revealed severe esophagitis and gastritis, most likely secondary to the patient's history of consumption of a commercial product Drano as a form of a suicide attempt. RECOMMENDATIONS: I would continue aggressive medical therapy including twice a day IV PPI, Carafate 4 times a day, antacids, lidocaine gel to relieve some of the swallowing difficulty and odynophagia and also pain medications for analgesia. I would attempt only clear liquids for now if possible. I would encourage ice chips and icicles as well. I would carefully monitor her vital signs and if the patient develops further upper GI difficulties consider repeat imaging studies such as CT scan of the chest and abdomen. We will follow the patient closely with you. Rubens Rico MD Assessment and Plan (1) Suicidal behavior Status: Acute Code(s): R46.89 - Other symptoms and signs involving appearance and behavior (2) Caustic burn of esophagus Status: Acute Code(s): T28.6XXA - Corrosion of esophagus, initial encounter (3) Caustic injury gastritis Status: Acute Code(s): K29.60 - Other gastritis without bleeding (4) Odynophagia Status: Acute Code(s): R13.10 - Dysphagia, unspecified - Plan Continue present therapy explained the importance of po nutrition Encouraged ice cream applesauce with bosst or ensure (2) Caustic burn of esophagus Qualifiers: Qualified Code(s): T28.6XXS - Corrosion of esophagus, sequela
--- NOTE | 2017-10-18 14:08 | P.PN ---
Subjective Interval history: Follow-up on patient with suicide attempt via drinking Drano. Patient seen and examined. Patient states her swallowing has improved some but is still very painful. She is having less oral secretions. She reports less abdominal pain. Still not eating due to increased pain. DW nursing staff, she is eating about 5% of meals. She begins to cry when I talk to her about IV potassium replacement. Physical Exam Vital signs: Vital Signs 10/17/17 17:53 10/18/17 05:14 Temperature 98.1 F 97.8 F Pulse Rate 83 96 H Respiratory Rate 18 16 Blood Pressure 157/86 H 113/75 Pulse Oximetry 97 96 Intake & Output 10/17/17 10/18/17 10/18/17 18:59 06:59 18:59 Intake Total 480 / 480 210 / 210 420 / 420 Balance 480 / 480 210 / 210 420 / 420 Intake: IV 300 / 300 KCl 10 mEq Premix Inj 10 meq In 100 / 100 100 ml @ 100 mls/hr IV.SIG Q1H SHANTAL Rx#:[id number] KCl 20 mEq Premix Inj 20 meq In 100 / 100 100 ml @ 50 mls/hr IV.SIG Q2H SHANTAL Rx#:[id number] Oral 180 / 180 210 / 210 420 / 420 Other: # Voids 2 1 Narrative: GENERAL: WDWN female, INAD. Awake and alert. Lying in bed. Looks a little better today. SKIN: Warm and dry. +necrotic skin changes on lips, much improved. HEENT: Atraumatic. Normocephalic. Pupils equal and round. No scleral icterus. No injection or drainage. No nasal bleeding or discharge. Mucous membranes pink and moist. NECK: Trachea midline. CARDIOVASCULAR: Tachycardic. RESPIRATORY: No accessory muscle use. Clear to auscultation. Breath sounds equal bilaterally. GASTROINTESTINAL: Abdomen soft, nondistended. +diffuse tenderness to palpation, improving. +BS. MUSCULOSKELETAL: Extremities without clubbing, cyanosis, or edema. No obvious deformities. NEUROLOGICAL: Awake and alert. No obvious cranial nerve deficits. Motor grossly within normal limits. Able to move extremities spontaneously. Normal speech. PSYCHIATRIC: Depressed affect. Judgment and insight poor. Results - Labs CBC & Chem 7: 10/17/17 11:36 10/18/17 07:10 Laboratory Results - last 24 hr 10/18/17 07:10 Sodium 142 Potassium 3.4 L Chloride 104 Carbon Dioxide 25.2 Anion Gap 13 BUN 8 Creatinine 0.44 L Estimated GFR Greater than 89 Random Glucose 83 Calcium 8.2 L Total Bilirubin 0.5 AST 19 ALT 16 Alkaline Phosphatase 50 Total Protein 6.5 Albumin 3.0 L - Procedures EGD 10/15/17 IMPRESSION: This examination revealed severe esophagitis and gastritis, most likely secondary to the patient's history of consumption of a commercial product Drano as a form of a suicide attempt. RECOMMENDATIONS: I would continue aggressive medical therapy including twice a day IV PPI, Carafate 4 times a day, antacids, lidocaine gel to relieve some of the swallowing difficulty and odynophagia and also pain medications for analgesia. I would attempt only clear liquids for now if possible. I would encourage ice chips and icicles as well. I would carefully monitor her vital signs and if the patient develops further upper GI difficulties consider repeat imaging studies such as CT scan of the chest and abdomen. We will follow the patient closely with you. Rubens Rico MD Assessment and Plan - Plan 57-year-old female admitted to inpatient psychiatry following a suicide attempt by drinking Drano Depression Suicide attempt -Management per psychiatry Severe gastritis and esophagitis Odynophagia History of chronic dysphasia status post multiple dilations in the past Patient drank 2-3 cups of liquid Drano -GI following, appreciate expertise. Status post EGD 10/15 revealing severe esophagitis and gastritis secondary to consumption of caustic liquid Drano. Per GI, continue with aggressive medical therapy to include IV PPI twice daily, Carafate 4 times daily, antacids, lidocaine gel, clear liquid diet. Repeat CT scan of the chest and abdomen for any upper GI difficulties. -Continue to follow vital signs and any evidence of esophageal rupture closely. Monitor for hypersalivation, drooling, stridor, etc. -We will obtain swallow evaluation by speech therapy - pending -Pain management with bowel regimen -Antiemetics as needed -continue on clear liquid diet. Monitor oral intake. Consult cleaner and presser for calorie count. Add Ensure supplement TID. Hypokalemia, improved s/p IV repletion but K still slightly low at 3.4 today -patient declining IV potassium at this time. Lab value just below normal. Will repeat BMP in am. DVT prophylaxis -bilateral SCD/RICCI hose Code Status: FULL Discussed Condition With: patient, Saroj CALDWELL, Dr. Evangelista
--- NOTE | 2017-10-18 17:33 | P.DIET ---
Nutritional Evaluation Type of nutrition evaluation: initial Nutrition screening: [facility] Screening comments: 10/18 [facility] Calorie Counting Subjective Oral Diet Tolerance Assessment Indicates: Swallowing problems, Poor intake due to pain Subjective Comments: Pt eating partially melted ice cream when visited. "I drank Drano". Pt's family members at bedside. Pt says the Ensure is too thick. Pt receptive to receiving Ensure Clear w/meals. JAVI Kyle reports pt w/o emesis today. Objective - Diagnosis Major Depressive Disorder - Objective [place] body weight: 45.5 kg % IBW: 122 Body Weight Used for Calculations: Actual (55.1 kg) Energy Needs - Lower Range (kCal/kg): 25 Energy Needs - Upper Range (kCal/kg): 30 Lower Limit kCal/kg (kCals): 1,378 Upper Limit kCal/kg (kCals): 1,653 Lower Limit Protein Factor (Grams per Kg): 1.0 Upper Limit Protein Factor (Grams per Kg): 1.3 Lower Protein Needs (Protein): 55 Upper Protein Needs (Protein): 72 Fluid Factor (ml/kg): 30 Estimated Fluid Needs (ml): 1,653 Dietitian Reviewed in Medical Record: Current diet, Curent medications, Intake & Output, Labs, Medical history Diet Order: Clear Liquid Speech Therapy Recommendations: Yes (other clear liquids) Objective Comments: PMH: Depression, anxiety, insomnia, Cannabis use DO, Benzodiazepine use DO, fibromyalgia, GERD Pt here for SA-crank 2 to 3-cups of liquid Drano Feeding - Current PO Supplement Current Supplement: Ensure Original Current Frequency of Supplement: Three times a day Current kCals Provided by Supplement: 250 Current Protein Provided by Supplement: 9 Assessment Assessment: Pt is at high nutrition risk r/t poor appetite, reported wt loss for last two months and recently drank liquid Drano and only able to tolerate small amounts of liquids. GI Recs reviewed. No emesis today, up until time of this visit. Pt will continue to try Ensure supplement and other liquids as tolerated. Send Ensure Clear TID to offer 240 kcal and 8g Protein per serving. MDC for Calorie Counting start 10/19 through 10/21 w/Nutrition Recs to follow 10/22. Recommendations: 1. Monitor GI Recs 2. Pt will continue to try Ensure supplement and other liquids as tolerated 3. Send Ensure Clear TID 4. MDC for Calorie Counting start 10/19 through 10/21 w/Nutrition Recs to follow 10/22 Dietitian to Monitor: Lab values, Electrolytes, Supplement acceptance, Intake & Output, Diet tolerance, Weight change, PO Intake, Swallow recommendations, Medical course
[2017-10-18] MEDS: QUEtiapine 25 MG Tablet PO SCH (20:52)
[2017-10-19] MEDS: Aluminum/Magnesium/Simethacone Susp 30 ML UDC PO SCH ×4 (06:34→21:49)
--- NOTE | 2017-10-19 07:57 | P.PNPSY ---
Subjective Remarks: This is a late note from 10/18/2017. Reviewed electronic medical records and discussed case with staff. Follow-up was conducted in patient's room. Patient reports that she is feeling "kind of rough and still having suicidal thoughts". She states that her insomnia has been really bad which is causing her depression to be worse. She still has not been eating much due to damage from the Drano to her throat. She did however managed to keep down some ice cream today. She denies any side effects from her medications. Her mood and affect are depressed. Mental Status Examination Appearance: Appropriate (Unable to ascertain mental status exam today 10/15) Consciousness: Alert Orientation: x4 Motor Activity: Normal gait Speech: Unremarkable Language: Adequate Fund of Knowledge: Adequate Attention and Concentration: Adequate Memory: Unremarkable Mood: Sad, Anxious, Other (Mildly tearful) Affect: Other (Decreased range and intensity) Thought Process & Associations: Intact Thought Content: Appropriate Hallucination Type: None Delusion Type: None Suicidal Ideation: No Suicidal Plan: No Suicidal Intention: No Homicidal Ideation: No Homicidal Plan: No Homicidal Intention: No Insight: Poor Judgment: Poor Assessment and Plan - Assessment (1) Major depressive disorder Code(s): F32.9 - Major depressive disorder, single episode, unspecified Status : Acute - Plan Plan: Continue with current treatment plan. Patient will be seeing her attending psychiatrist tomorrow for reevaluation. Justification for Continued Inpatient Stay: Moving this patient to a less restrictive environment would likely result in decompensation.
[2017-10-19 08:18] LABS: Anion Gap 12 meq/L (5-15); Blood Urea Nitrogen 9 mg/dL (7-18); Calcium 8.6 mg/dL (8.5-10.1); Carbon Dioxide 26.4 meq/L (21.0-32.0); Chloride 103 meq/L (98-107); Glomerular Filtration Rate Greater Than 89 mL/min (>89); Glucose,Random 101 mg/dL (74-106); Potassium 3.3 meq/L (3.5-5.1); Sodium 141 meq/L (136-145)
[2017-10-19] MEDS: Pantoprazole Inj 40 MG Vial IV.PUSH SCH ×2 (09:18→21:12)
[2017-10-19] MEDS: Sucralfate Liq 1 GM/10 ML UDC PO SCH ×4 (09:18→21:12)
--- NOTE | 2017-10-19 09:43 | P.PN ---
Subjective Interval history: Follow-up on patient with suicide attempt via drinking Drano. Patient seen and examined. Patient reports her abdominal pain is better but she is still having a significant amount of retrosternal chest pain especially with swallowing. She does state her swelling has improved some. She continues to have very poor oral intake. She is complaining of swelling, tenderness and warmth in the left forearm were previous IV infiltrated. Physical Exam Vital signs: Vital Signs 10/18/17 17:36 10/19/17 05:46 Temperature 97.4 F L 98.2 F Pulse Rate 84 96 H Respiratory Rate 16 16 Blood Pressure 110/63 120/59 L Pulse Oximetry 96 95 Intake & Output 10/18/17 10/19/17 10/19/17 18:59 06:59 18:59 Intake Total 880 / 880 170 / 170 120 / 120 Balance 880 / 880 170 / 170 120 / 120 Intake: Oral 880 / 880 120 / 120 120 / 120 Oral Supplement 50 / 50 Other: # Voids 2 1 Narrative: GENERAL: WDWN female patient, awake and alert. Not in any acute distress. SKIN: Warm and dry. +necrotic skin changes on lips, much improved. HEENT: Atraumatic. Normocephalic. Pupils equal and round. No scleral icterus. No injection or drainage. No nasal bleeding or discharge. Mucous membranes pink and moist. NECK: Trachea midline. CARDIOVASCULAR: Tachycardic. RESPIRATORY: No accessory muscle use. Clear to auscultation. Breath sounds equal bilaterally. GASTROINTESTINAL: Abdomen soft, nondistended, nontender. +BS. MUSCULOSKELETAL: Extremities without clubbing or cyanosis. + edema noted over left forearm with associated tenderness to palpation and mild warmth. NEUROLOGICAL: Awake and alert. No obvious cranial nerve deficits. Motor grossly within normal limits. Able to move extremities spontaneously. Normal speech. PSYCHIATRIC: Depressed affect. Judgment and insight poor. Results - Labs CBC & Chem 7: 10/17/17 11:36 10/19/17 07:33 Laboratory Results - last 24 hr 10/18/17 10/19/17 16:50 07:33 Sodium 141 Potassium 3.3 L Chloride 103 Carbon Dioxide 26.4 Anion Gap 12 BUN 9 Creatinine 0.62 Estimated GFR Greater than 89 POC Glucose 114 H Random Glucose 101 Calcium 8.6 - Procedures EGD 10/15/17 IMPRESSION: This examination revealed severe esophagitis and gastritis, most likely secondary to the patient's history of consumption of a commercial product Drano as a form of a suicide attempt. RECOMMENDATIONS: I would continue aggressive medical therapy including twice a day IV PPI, Carafate 4 times a day, antacids, lidocaine gel to relieve some of the swallowing difficulty and odynophagia and also pain medications for analgesia. I would attempt only clear liquids for now if possible. I would encourage ice chips and icicles as well. I would carefully monitor her vital signs and if the patient develops further upper GI difficulties consider repeat imaging studies such as CT scan of the chest and abdomen. We will follow the patient closely with you. Rubens Rico MD Assessment and Plan - Plan 57-year-old female admitted to inpatient psychiatry following a suicide attempt by drinking Drano Depression Suicide attempt -Management per psychiatry Severe gastritis and esophagitis Odynophagia History of chronic dysphasia status post multiple dilations in the past Patient drank 2-3 cups of liquid Drano -GI following, appreciate expertise. Status post EGD 10/15 revealing severe esophagitis and gastritis secondary to consumption of caustic liquid Drano. Per GI, continue with aggressive medical therapy to include IV PPI twice daily, Carafate 4 times daily, antacids, lidocaine gel, clear liquid diet. Repeat CT scan of the chest and abdomen for any upper GI difficulties. -Continue to follow vital signs and any evidence of esophageal rupture closely. Monitor for hypersalivation, drooling, stridor, etc. -We will obtain swallow evaluation by speech therapy - pending -Pain management with bowel regimen -Antiemetics as needed -continue on clear liquid diet. Monitor oral intake. Dietitian following, calorie count in progress. Add Ensure supplement TID - change to Ensure clear at dieticians recommendation. Hypokalemia K 3.3 -IV repletion ordered -repeat BMP in am LUE edema with hx of IV extravasation -obtain doppler study LUE to r/o DVT -ice packs -unable to give any NSAIDS 2/2 above DVT prophylaxis -bilateral SCD/RICCI hose Code Status: FULL Discussed Condition With: patient, nursing staff, Dr. Evangelista
[2017-10-19] MEDS: Morphine Inj 4 MG/ML Vial IV.PUSH PRN ×3 (09:52→21:58)
--- NOTE | 2017-10-19 10:11 | P.PNGI ---
Subjective Interval history: ALert tolerated ice cream no ensure yet Physical Exam Vital signs: Vital Signs 10/18/17 17:36 10/19/17 05:46 Temperature 97.4 F L 98.2 F Pulse Rate 84 96 H Respiratory Rate 16 16 Blood Pressure 110/63 120/59 L Pulse Oximetry 96 95 Intake & Output 10/18/17 10/19/17 10/19/17 18:59 06:59 18:59 Intake Total 880 / 880 170 / 170 120 / 120 Balance 880 / 880 170 / 170 120 / 120 Intake: Oral 880 / 880 120 / 120 120 / 120 Oral Supplement 50 / 50 Other: # Voids 2 1 - Constitutional no acute distress - Routine HEENT Exam ENT: Present: mucous membranes moist - Routine Respiratory Exam Present: CTA bilaterally - Routine Cardiovascular Exam Present: RRR, S1, S2 - Routine Abdominal Exam Present: soft, normoactive bowel sounds Results - Labs CBC & Chem 7: 10/17/17 11:36 10/19/17 07:33 Laboratory Results - last 24 hr 10/18/17 10/19/17 16:50 07:33 Sodium 141 Potassium 3.3 L Chloride 103 Carbon Dioxide 26.4 Anion Gap 12 BUN 9 Creatinine 0.62 Estimated GFR Greater than 89 POC Glucose 114 H Random Glucose 101 Calcium 8.6 - Procedures EGD 10/15/17 IMPRESSION: This examination revealed severe esophagitis and gastritis, most likely secondary to the patient's history of consumption of a commercial product Drano as a form of a suicide attempt. RECOMMENDATIONS: I would continue aggressive medical therapy including twice a day IV PPI, Carafate 4 times a day, antacids, lidocaine gel to relieve some of the swallowing difficulty and odynophagia and also pain medications for analgesia. I would attempt only clear liquids for now if possible. I would encourage ice chips and icicles as well. I would carefully monitor her vital signs and if the patient develops further upper GI difficulties consider repeat imaging studies such as CT scan of the chest and abdomen. We will follow the patient closely with you. Rubens Rico MD Assessment and Plan (1) Suicidal behavior Status: Acute Code(s): R46.89 - Other symptoms and signs involving appearance and behavior (2) Caustic burn of esophagus Status: Acute Code(s): T28.6XXA - Corrosion of esophagus, initial encounter (3) Caustic injury gastritis Status: Acute Code(s): K29.60 - Other gastritis without bleeding (4) Odynophagia Status: Acute Code(s): R13.10 - Dysphagia, unspecified - Plan Have again discussed consumption of boost or ensure continue present management for now. (2) Caustic burn of esophagus Qualifiers: Qualified Code(s): T28.6XXS - Corrosion of esophagus, sequela
[2017-10-19] MEDS: Potassium Chlor 10 mEq Premix 10 MEQ/100 ML PIGGYBACK IV.SIG SCH ×4 (11:43→18:27)
--- NOTE | 2017-10-19 15:47 | P.PNPSY ---
Subjective Remarks: Patient is seen in her room with nurse Shaniqua and patient's father present throughout session with patient's permission, chart reviewed, patient somewhat upset with having to adjust the issue of discharge planning and placement issues. This was discussed with her with her counselor Svetlana and I have also counseled her with this that she needs to look at options that may include a stay and a NIC for other [place] [facility] type facility or perhaps with family or extended family member. She does not wish to go back to her prior living relationship she is somewhat vague about suicidality today feels much of the suicidal ideation is related to the environmental issues. For now continue treatment no change Review of Systems All other systems reviewed negative except as stated in HPI Mental Status Examination Appearance: Appropriate (Unable to ascertain mental status exam today 10/15) Consciousness: Alert Orientation: x4 Motor Activity: Normal gait Speech: Unremarkable Language: Adequate Fund of Knowledge: Adequate Attention and Concentration: Adequate Memory: Unremarkable Mood: Sad, Anxious, Other (Mildly tearful) Affect: Other (Decreased range and intensity) Thought Process & Associations: Intact Thought Content: Appropriate Hallucination Type: None Delusion Type: None Suicidal Ideation: No Suicidal Plan: No Suicidal Intention: No Homicidal Ideation: No Homicidal Plan: No Homicidal Intention: No Insight: Poor Judgment: Poor Assessment and Plan - Assessment (1) Major depressive disorder, single episode, severe Code(s): F32.2 - Major depressive disorder, single episode, severe without psychotic features Status: Acute - Plan Plan: Patient continues depressed and somewhat anxious need to encourage her to work on looking at Justification for Continued Inpatient Stay: At this time patient would decompensate a place to a lower level of care Discharge Planning: To be determined
--- NOTE | 2017-10-19 18:31 | US ---
EXAM DATE: 10/19/2017 6:27 PM EDT AGE/SEX: 57 years / Female INDICATIONS: Left arm edema. CLINICAL DATA: This is the patient's initial encounter. Patient reports that signs and symptoms have been present for 3 days and indicates a pain score of 4/10. MEDICAL/SURGICAL HISTORY: Gastroesophageal reflux disease. Fibromyalgia. None. COMPARISON: No prior exams available for comparison. FINDINGS: There is occlusive thrombus within the proximal portion of the cephalic vein. The brachial , basilic, radial, ulnar, axillary IJ, and subclavian veins are patent. CONCLUSION: 1. There is thrombus within the cephalic vein. Electronically signed by: Kartik Chung MD 10/19/2017 6:29 PM EDT
[2017-10-19] MEDS: QUEtiapine 25 MG Tablet PO SCH (21:11)
[2017-10-20] MEDS: Aluminum/Magnesium/Simethacone Susp 30 ML UDC PO SCH ×3 (03:20→15:36)
[2017-10-20 07:02] LABS: Anion Gap 7 meq/L (5-15); Blood Urea Nitrogen 8 mg/dL (7-18); Calcium 8.7 mg/dL (8.5-10.1); Carbon Dioxide 26.5 meq/L (21.0-32.0); Chloride 105 meq/L (98-107); Glomerular Filtration Rate Greater Than 89 mL/min (>89); Glucose,Random 102 mg/dL (74-106); Sodium 138 meq/L (136-145)
[2017-10-20 07:05] LABS: Potassium 4.6 meq/L (3.5-5.1)
--- NOTE | 2017-10-20 08:39 | P.PN ---
Subjective Interval history: Follow-up on patient with suicide attempt via drinking Drano. Patient seen and examined. Patient states her oral intake has improved some. She continues to have retrosternal chest pain with swallowing. She denies any nausea or vomiting. She denies any excess oral secretions. Tenderness and swelling in the left forearm has improved. Doppler study + thrombus in cephalic vein. Physical Exam Vital signs: Vital Signs 10/19/17 10:35 10/19/17 18:25 10/20/17 06:00 Temperature 98.1 F 98.3 F Pulse Rate 87 100 H Respiratory Rate 18 16 16 Blood Pressure 146/87 H 140/74 Pulse Oximetry 98 94 L Intake & Output 10/19/17 10/20/17 10/20/17 18:59 06:59 18:59 Intake Total 780 / 780 0 / 0 Balance 780 / 780 0 / 0 Intake: IV 300 / 300 KCl 10 mEq Premix Inj 10 meq In 300 / 300 100 ml @ 100 mls/hr IV.SIG Q1H SHANTAL Rx#:[id number] Oral 480 / 480 0 / 0 Oral Supplement 0 / 0 Other: # Voids 1 Narrative: GENERAL: WDWN female patient, INAD. Awake and alert. Sitting up in bed eating breakfast. SKIN: Warm and dry. +necrotic skin changes on lips, much improved. HEENT: Atraumatic. Normocephalic. Pupils equal and round. No scleral icterus. No injection or drainage. No nasal bleeding or discharge. Mucous membranes pink and moist. NECK: Trachea midline. CARDIOVASCULAR: Tachycardic. RESPIRATORY: No accessory muscle use. Clear to auscultation. Breath sounds equal bilaterally. GASTROINTESTINAL: Abdomen soft, nondistended, nontender. +BS. MUSCULOSKELETAL: Extremities without clubbing or cyanosis. + edema noted over left forearm with associated tenderness to palpation and mild warmth, improving. NEUROLOGICAL: Awake and alert. No obvious cranial nerve deficits. Motor grossly within normal limits. Able to move extremities spontaneously. + hypophonic speech. PSYCHIATRIC: Depressed affect. Judgment and insight poor. Results - Labs CBC & Chem 7: 10/17/17 11:36 10/20/17 06:02 Laboratory Results - last 24 hr 10/20/17 06:02 Sodium 138 Potassium 4.6 D Chloride 105 Carbon Dioxide 26.5 Anion Gap 7 BUN 8 Creatinine 0.55 Estimated GFR Greater than 89 Random Glucose 102 Calcium 8.7 - Imaging Impressions Venous Doppler Study 10/19/17 00:00 CONCLUSION: 1. There is thrombus within the cephalic vein. - Procedures EGD 10/15/17 IMPRESSION: This examination revealed severe esophagitis and gastritis, most likely secondary to the patient's history of consumption of a commercial product Drano as a form of a suicide attempt. RECOMMENDATIONS: I would continue aggressive medical therapy including twice a day IV PPI, Carafate 4 times a day, antacids, lidocaine gel to relieve some of the swallowing difficulty and odynophagia and also pain medications for analgesia. I would attempt only clear liquids for now if possible. I would encourage ice chips and icicles as well. I would carefully monitor her vital signs and if the patient develops further upper GI difficulties consider repeat imaging studies such as CT scan of the chest and abdomen. We will follow the patient closely with you. Rubens Rico MD Assessment and Plan - Plan 57-year-old female admitted to inpatient psychiatry following a suicide attempt by drinking Drano Depression Suicide attempt -Management per psychiatry Severe gastritis and esophagitis Odynophagia History of chronic dysphasia status post multiple dilations in the past Patient drank 2-3 cups of liquid Drano -GI following, appreciate expertise. Status post EGD 10/15 revealing severe esophagitis and gastritis secondary to consumption of caustic liquid Drano. Per GI, continue with aggressive medical therapy to include IV PPI twice daily, Carafate 4 times daily, antacids, lidocaine gel, clear liquid diet. Repeat CT scan of the chest and abdomen for any upper GI difficulties. Plan to advance diet per GI recs. -Continue to follow vital signs and any evidence of esophageal rupture closely. Monitor for hypersalivation, drooling, stridor, etc. -Speech therapy following, cleared for thin liquids -Pain management with bowel regimen -Antiemetics as needed -continue on clear liquid diet per GI recs. Continue on Ensure clear. Monitor oral intake. Dietitian following, calorie count in progress. Hypokalemia K 3.3 -resolved s/p IV repletion -monitor potassium level as indicated LUE edema with hx of IV extravasation -Doppler US +superficial thrombus in cephalic vein -ice packs -unable to give any NSAIDS 2/2 above DVT prophylaxis -bilateral SCD/RICCI hose Code Status: FULL Discussed Condition With: patient, nursing staff, Dr. Martínez
[2017-10-20] MEDS: Morphine Inj 4 MG/ML Vial IV.PUSH PRN ×3 (09:44→21:04)
[2017-10-20] MEDS: Pantoprazole Inj 40 MG Vial IV.PUSH SCH ×2 (09:44→21:03)
[2017-10-20] MEDS: Sucralfate Liq 1 GM/10 ML UDC PO SCH ×4 (09:44→21:03)
--- NOTE | 2017-10-20 12:00 | P.TTN ---
- Patient Problems Problems: 1. Discharge planning 2. Medication compliance 3. Knowledge deficit 4. Lack of coping skills - Progress Toward Goals Provider Present: Dr. Wily Jules Provider Input: Patient is being treated for medical and mental health; medications are being adjusted Nurse(s) Present: RN Nurse Input: Patient is no behavior, she is eating motified meals (Liquid), and taking her medication. Psychiatric Counselors Present: Svetlana Hurt [facility] Psychiatric Therapist Input: Counselor will assist patient with appropriate dc planning, [facility] for placement, and mental health provider for outpatient care. Group Spec/RT/OT/MACDONALD Present: RENAE Rowe Group Spec/RT/OT/MACDONALD Input: Patient has been unable to attend groups - Documentation Teaching Recipient: Patient
--- NOTE | 2017-10-20 14:54 | P.PNPSY ---
Subjective Remarks: Patient seen in her room with nurse Maikol. Patient calm pleasant with me denies suicidality homicidality voice or visions. We are working with patient related to placement issues as a possibility of the patient may be referred to the [facility]. Patient appears willing to go there. However we do need medical clearance from gastroenterology. Have requested that Review of Systems All other systems reviewed negative except as stated in HPI Mental Status Examination Appearance: Appropriate (Unable to ascertain mental status exam today 10/15) Consciousness: Alert Orientation: x4 Motor Activity: Normal gait Speech: Unremarkable Language: Adequate Fund of Knowledge: Adequate Attention and Concentration: Adequate Memory: Unremarkable Mood: Sad, Anxious (Improving), Other (Mildly tearful) Affect: Other (Decreased range and intensity) Thought Process & Associations: Intact Thought Content: Appropriate Hallucination Type: None Delusion Type: None Suicidal Ideation: No Suicidal Plan: No Suicidal Intention: No Homicidal Ideation: No Homicidal Plan: No Homicidal Intention: No Insight: Fair Judgment: Adequate Assessment and Plan - Assessment (1) Major depressive disorder, single episode, severe Code(s): F32.2 - Major depressive disorder, single episode, severe without psychotic features Status: Acute - Plan Plan: Patient depression improving now denies suicidality. We continue to work with placement possibly at the [facility]. If reconsult gastroenterology to see if she can be medically cleared over they may recommend Justification for Continued Inpatient Stay: At this time patient may decompensate if not placed in an appropriate level of care Discharge Planning: See above
--- NOTE | 2017-10-20 15:20 | P.PNGI ---
Subjective Interval history: Feeling better today tolerating clear liquids and ice creac and some ensure WELL Physical Exam Vital signs: Vital Signs 10/19/17 18:25 10/20/17 06:00 Temperature 98.1 F 98.3 F Pulse Rate 87 100 H Respiratory Rate 16 16 Blood Pressure 146/87 H 140/74 Pulse Oximetry 98 94 L Intake & Output 10/19/17 10/20/17 10/20/17 18:59 06:59 18:59 Intake Total 780 / 780 0 / 0 340 / 340 Balance 780 / 780 0 / 0 340 / 340 Intake: IV 300 / 300 KCl 10 mEq Premix Inj 10 meq In 300 / 300 100 ml @ 100 mls/hr IV.SIG Q1H SHANTAL Rx#:[id number] Oral 480 / 480 0 / 0 340 / 340 Oral Supplement 0 / 0 Other: # Voids 1 - Constitutional no acute distress - Routine Neck Exam Present: supple - Routine Respiratory Exam Present: CTA bilaterally - Routine Cardiovascular Exam Present: RRR, S1, S2 - Routine Abdominal Exam Present: soft, normoactive bowel sounds Results - Labs CBC & Chem 7: 10/17/17 11:36 10/20/17 06:02 Laboratory Results - last 24 hr 10/20/17 06:02 Sodium 138 Potassium 4.6 D Chloride 105 Carbon Dioxide 26.5 Anion Gap 7 BUN 8 Creatinine 0.55 Estimated GFR Greater than 89 Random Glucose 102 Calcium 8.7 - Imaging Impressions Venous Doppler Study 10/19/17 00:00 CONCLUSION: 1. There is thrombus within the cephalic vein. - Procedures EGD 10/15/17 IMPRESSION: This examination revealed severe esophagitis and gastritis, most likely secondary to the patient's history of consumption of a commercial product Drano as a form of a suicide attempt. RECOMMENDATIONS: I would continue aggressive medical therapy including twice a day IV PPI, Carafate 4 times a day, antacids, lidocaine gel to relieve some of the swallowing difficulty and odynophagia and also pain medications for analgesia. I would attempt only clear liquids for now if possible. I would encourage ice chips and icicles as well. I would carefully monitor her vital signs and if the patient develops further upper GI difficulties consider repeat imaging studies such as CT scan of the chest and abdomen. We will follow the patient closely with you. Rubens Rico MD Assessment and Plan (1) Suicidal behavior Status: Acute Code(s): R46.89 - Other symptoms and signs involving appearance and behavior (2) Caustic burn of esophagus Status: Acute Code(s): T28.6XXA - Corrosion of esophagus, initial encounter (3) Caustic injury gastritis Status: Acute Code(s): K29.60 - Other gastritis without bleeding (4) Odynophagia Status: Acute Code(s): R13.10 - Dysphagia, unspecified - Plan APPEARS BETTER TODAY WITH INCREASED PO INTAKE DR MARIANGEL BENITEZ (2) Caustic burn of esophagus Qualifiers: Qualified Code(s): T28.6XXS - Corrosion of esophagus, sequela
[2017-10-20] MEDS: QUEtiapine 25 MG Tablet PO SCH (21:03)
--- NOTE | 2017-10-21 09:12 | P.PNGI ---
Subjective Interval history: Patient seen at bedside. Was able to tolerate Ensure and clear liquid diet. Did have some pain with swallowing in the mid chest. No nausea, vomiting, abdominal pain or overt GI bleeding. Denies anginal chest pain or shortness of breath Physical Exam Vital signs: Vital Signs 10/20/17 18:00 10/21/17 06:00 Temperature 98.2 F 99.6 F Pulse Rate 80 95 H Respiratory Rate 18 17 Blood Pressure 126/77 114/62 Pulse Oximetry 98 96 Intake & Output 10/20/17 10/21/17 10/21/17 18:59 06:59 18:59 Intake Total 680 / 680 0 / 0 240 / 240 Balance 680 / 680 0 / 0 240 / 240 Intake: Oral 680 / 680 0 / 0 240 / 240 Oral Supplement 0 / 0 Other: # Voids 2 2 - Constitutional no acute distress - Routine HEENT Exam Head: Absent: atraumatic Eye: Absent: conjunctival icterus - Routine Neck Exam Present: supple - Routine Cardiovascular Exam Present: RRR - Routine Abdominal Exam Present: soft, normoactive bowel sounds. Absent: distended, rebound - Routine Extremities Exam Absent: edema - Routine Neurological Exam Present: alert, oriented X3 Results - Labs CBC & Chem 7: 10/17/17 11:36 10/20/17 06:02 - Procedures EGD 10/15/17 IMPRESSION: This examination revealed severe esophagitis and gastritis, most likely secondary to the patient's history of consumption of a commercial product Drano as a form of a suicide attempt. Rubens Rico MD Assessment and Plan - Attending Attestation IMPRESSION: 1. Severe esophagitis/gastritis from caustic ingestion 2. Odynophagia secondary to above RECOMMENDATIONS: 1. Continue PPI, Carafate and lidocaine by mouth for analgesia. 2. Continue clear liquid. Patient does not think she can tolerate full liquids at present. Continue Ensure 3. If patient not taking enough calories she may need a feeding tube but this will have to be replaced by radiology because of the damage in her esophagus.
[2017-10-21] MEDS: Morphine Inj 4 MG/ML Vial IV.PUSH PRN ×2 (09:28→17:25)
[2017-10-21] MEDS: Pantoprazole Inj 40 MG Vial IV.PUSH SCH (09:29)
[2017-10-21] MEDS: Sucralfate Liq 1 GM/10 ML UDC PO SCH ×4 (09:29→20:32)
--- NOTE | 2017-10-21 10:27 | P.PNPSY ---
Subjective Remarks: Patient seen in day room with floor staff, chart reviewed, patient compliant medication. Patient continues calm cooperative there, also continue some anticipatory anxiety and tears related to placement issues. She does deny suicidality homicidality voices or visions. She continues to show willingness to [facility] her there. He also continue to await medical clearance from GI and the hospitalist also patient is scheduled for [place] [facility] tomorrow. Patient longer meets criteria for involuntary inpatient hospitalization I will lift [place] allow the patient to sign voluntary Review of Systems All other systems reviewed negative except as stated in HPI Mental Status Examination Appearance: Appropriate (Unable to ascertain mental status exam today 10/15) Consciousness: Alert Orientation: x4 Motor Activity: Normal gait Speech: Unremarkable Language: Adequate Fund of Knowledge: Adequate Attention and Concentration: Adequate Memory: Unremarkable Mood: Sad, Anxious (Improving), Other (Mildly tearful) Affect: Other (Decreased range and intensity) Thought Process & Associations: Intact Thought Content: Appropriate Hallucination Type: None Delusion Type: None Suicidal Ideation: No Suicidal Plan: No Suicidal Intention: No Homicidal Ideation: No Homicidal Plan: No Homicidal Intention: No Insight: Adequate Judgment: Adequate Assessment and Plan - Assessment (1) Major depressive disorder, single episode, severe Code(s): F32.2 - Major depressive disorder, single episode, severe without psychotic features Status: Acute - Plan Plan: Patient continues to improve Justification for Continued Inpatient Stay: At this time patient would decompensate if placed in a lower level of care Discharge Planning: To be determined
--- NOTE | 2017-10-21 12:27 | P.PN ---
Subjective Interval history: Follow-up on patient with suicide attempt via drinking Drano. Patient seen and examined. Patient continues to have constant mid retrosternal chest pain that is worse with swallowing. She denies any fever or chills. She denies any nausea or vomiting. She denies any abdominal pain. She participated with several group therapies today in psych. Physical Exam Vital signs: Vital Signs 10/20/17 18:00 10/21/17 06:00 Temperature 98.2 F 99.6 F Pulse Rate 80 95 H Respiratory Rate 18 17 Blood Pressure 126/77 114/62 Pulse Oximetry 98 96 Intake & Output 10/20/17 10/21/17 10/21/17 18:59 06:59 18:59 Intake Total 680 / 680 0 / 0 240 / 240 Balance 680 / 680 0 / 0 240 / 240 Intake: Oral 680 / 680 0 / 0 240 / 240 Oral Supplement 0 / 0 Other: # Voids 2 2 Narrative: GENERAL: WDWN female patient, INAD. Awake and alert. Sitting up in bed. Father is at the bedside. SKIN: Warm and dry. +necrotic skin changes on lips, much improved. HEENT: Atraumatic. Normocephalic. Pupils equal and round. No scleral icterus. No injection or drainage. No nasal bleeding or discharge. Mucous membranes pink and moist. NECK: Trachea midline. CARDIOVASCULAR: Tachycardic. RESPIRATORY: No accessory muscle use. Clear to auscultation. Breath sounds equal bilaterally. GASTROINTESTINAL: Abdomen soft, nondistended, nontender. +BS. MUSCULOSKELETAL: Extremities without clubbing or cyanosis. + edema noted over left forearm with associated tenderness to palpation and mild warmth, improving. NEUROLOGICAL: Awake and alert. No obvious cranial nerve deficits. Motor grossly within normal limits. Able to move extremities spontaneously. + hypophonic speech. PSYCHIATRIC: Depressed affect. Judgment and insight poor. Results - Labs CBC & Chem 7: 10/17/17 11:36 10/20/17 06:02 - Procedures EGD 10/15/17 IMPRESSION: This examination revealed severe esophagitis and gastritis, most likely secondary to the patient's history of consumption of a commercial product Drano as a form of a suicide attempt. RECOMMENDATIONS: I would continue aggressive medical therapy including twice a day IV PPI, Carafate 4 times a day, antacids, lidocaine gel to relieve some of the swallowing difficulty and odynophagia and also pain medications for analgesia. I would attempt only clear liquids for now if possible. I would encourage ice chips and icicles as well. I would carefully monitor her vital signs and if the patient develops further upper GI difficulties consider repeat imaging studies such as CT scan of the chest and abdomen. We will follow the patient closely with you. Rubens Rico MD Assessment and Plan - Plan 57-year-old female admitted to inpatient psychiatry following a suicide attempt by drinking Drano Depression Suicide attempt -Management per psychiatry Severe gastritis and esophagitis Odynophagia History of chronic dysphasia status post multiple dilations in the past Patient drank 2-3 cups of liquid Drano -GI following, appreciate expertise. Status post EGD 10/15 revealing severe esophagitis and gastritis secondary to consumption of caustic liquid Drano. Per GI, continue with aggressive medical therapy to include IV PPI twice daily, Carafate 4 times daily, antacids, lidocaine gel, clear liquid diet. Repeat CT scan of the chest and abdomen for any upper GI difficulties. Plan to advance diet per GI recs. -Continue to follow vital signs and any evidence of esophageal rupture closely. Monitor for hypersalivation, drooling, stridor, etc. -Speech therapy following, cleared for thin liquids -Pain management with bowel regimen -Antiemetics as needed -continue on clear liquid diet per GI recs. Continue on Ensure clear. Monitor oral intake. Dietitian following, calorie count in progress - to be completed today. Hypokalemia K 3.3 -resolved s/p IV repletion -monitor potassium level as indicated LUE edema with hx of IV extravasation, improving -Doppler US +superficial thrombus in cephalic vein -ice packs -unable to give any NSAIDS 2/2 above DVT prophylaxis -bilateral SCD/RICCI hose
[2017-10-21] MEDS: QUEtiapine 25 MG Tablet PO SCH (20:31)
[2017-10-22] MEDS: Sucralfate Liq 1 GM/10 ML UDC PO SCH ×4 (08:16→20:50)
--- NOTE | 2017-10-22 11:55 | P.DIET ---
Nutritional Evaluation Type of nutrition evaluation: follow-up Nutrition screening: [facility] Screening comments: 10/18 [facility] Calorie Counting Subjective Barriers to Nutrition: Swallowing problem Oral Diet Tolerance Assessment Indicates: Swallowing problems, Poor intake due to pain Subjective Comments: Pt w/"raspy" voice; sipping on Ensure Clear at bedside. Pt says it continues to hurt when she swallows. Pt agreeable to receive Ensure Clear x 2 TID. Discussed w/RN Yanira the need to know LBM and need for a current wt. Objective - Diagnosis Major Depressive Disorder - Objective [place] body weight: 45.5 kg % IBW: 122 Body Weight Used for Calculations: Actual (55.1 kg) Energy Needs - Lower Range (kCal/kg): 25 Energy Needs - Upper Range (kCal/kg): 30 Lower Limit kCal/kg (kCals): 1,378 Upper Limit kCal/kg (kCals): 1,653 Lower Limit Protein Factor (Grams per Kg): 1.0 Upper Limit Protein Factor (Grams per Kg): 1.3 Lower Protein Needs (Protein): 55 Upper Protein Needs (Protein): 72 Fluid Factor (ml/kg): 30 Estimated Fluid Needs (ml): 1,653 Dietitian Reviewed in Medical Record: Current diet, Curent medications, Intake & Output, Labs, Medical history Diet Order: Clear Liquid Speech Therapy Recommendations: Yes (other clear liquids) Objective Comments: PMH: Depression, anxiety, insomnia, Cannabis use DO, Benzodiazepine use DO, fibromyalgia, GERD Pt here for SA s/p drank 2 to 3-cups of liquid Drano 10/15 EGD w/severe esophagitis and gastritis Feeding - Current PO Supplement Current Supplement: Ensure Clear Current Frequency of Supplement: Three times a day Current kCals Provided by Supplement: 248 Current Protein Provided by Supplement: 8 - kCal Count Day 1 kCal Intake: 315 Day 1 Protein Intake: 6 Day 2 kCal Intake: 690 Day 2 Protein Intake: 3 Day 3 kCal Intake: 50 Day 3 Protein Intake: 1 Assessment Assessment: Pt is at high nutrition risk r/t poor appetite, reported wt loss for last two months. Pt recently drank liquid Drano and only able to tolerate small amounts of liquids. GI Recs reviewed w/plan for pt to continue w/Clear Liquid diet along w/ IV PPI, Carafate, Antacids and lidocaine gel. [facility] for Calorie Count w / INADEQUATE PO intake. Pt averaged 350 kcal and 3g protein per day. Rec starting PN w/ Clinimix E 4.25/55 and 20% Lipids @ 10ml/hr to offer 1051 kcal and 71g Protein. Continue Ensure Clear and increase to 2-per meal TID. Monitor Labs/Electrolytes closely. Need a current wt. LBM is unknown at time of this entry. Recommendations: 1. GI Recs for pt to continue w/Clear Liquid diet 2. MDC for Calorie Count w/ INADEQUATE PO intake 3. Rec starting PN w/ Clinimix E 4.25/55 and 20% Lipids @ 10ml/hr 4. Continue Ensure Clear and increase to 2-per meal TID 5. Need a current wt. 6. LBM is unknown at time of this entry Dietitian to Monitor: Lab values, Electrolytes, Supplement acceptance, Intake & Output, Diet tolerance, Weight change, PO Intake, Swallow recommendations, Medical course
--- NOTE | 2017-10-22 12:11 | P.TTN ---
- Patient Problems Problems: 1. Discharge planning 2. Medication compliance 3. Knowledge deficit 4. Lack of coping skills - Progress Toward Goals Provider Present: Dr. Wily Jules Provider Input: 10/21/2017; patient is stable on current psych meds, continues to be stablizing medically. Patient is being treated for medical and mental health; medications are being adjusted Nurse(s) Present: RN Nurse Input: 10/22/2017; patient is still on soft meals, taking meds, no behavior, still very depressed and sad. Patient is no behavior, she is eating motified meals (Liquid), and taking her medication. Psychiatric Counselors Present: Svetlana Hurt [facility] Psychiatric Therapist Input: 10/21/2017; patient was accepted at the [facility], and will follow-up at the [facility] office when dc. Counselor will assist patient with appropriate dc planning, [facility] for placement, and mental health provider for outpatient care. Group Spec/RT/OT/MACDONALD Present: RENAE Rowe Group Spec/RT/OT/MACDONALD Input: 10/21/2017; patient has been participating with some groups and activities. Patient has been unable to attend groups - Documentation Teaching Recipient: Patient
--- NOTE | 2017-10-22 13:20 | P.PN ---
Subjective Interval history: Follow-up on patient with suicide attempt via drinking Drano. Patient seen and examined. Patient thinks that she can try full liquid diet. She continues to have painful swallowing. Denies any fever chills. Denies any nausea, vomiting or abdominal pain. Physical Exam Vital signs: Vital Signs 10/21/17 18:11 10/22/17 06:00 Temperature 97.9 F 97.6 F Pulse Rate 92 H 98 H Respiratory Rate 14 Blood Pressure 129/66 124/68 Pulse Oximetry 98 95 Intake & Output 10/21/17 10/22/17 10/22/17 18:59 06:59 18:59 Intake Total 480 / 480 240 / 240 600 / 600 Balance 480 / 480 240 / 240 600 / 600 Intake: Oral 480 / 480 240 / 240 600 / 600 Narrative: GENERAL: WDWN female patient, INAD. Awake and alert. Sitting up in bed. SKIN: Warm and dry. HEENT: Atraumatic. Normocephalic. Pupils equal and round. No scleral icterus. No injection or drainage. No nasal bleeding or discharge. Mucous membranes pink and moist. NECK: Trachea midline. CARDIOVASCULAR: Tachycardic. RESPIRATORY: No accessory muscle use. Clear to auscultation. Breath sounds equal bilaterally. GASTROINTESTINAL: Abdomen soft, nondistended, nontender. +BS. MUSCULOSKELETAL: Extremities without clubbing, cyanosis or edema. NEUROLOGICAL: Awake and alert. No obvious cranial nerve deficits. Motor grossly within normal limits. Able to move extremities spontaneously. + hypophonic speech. PSYCHIATRIC: Depressed affect. Judgment and insight poor. Results - Labs CBC & Chem 7: 10/17/17 11:36 10/20/17 06:02 - Procedures EGD 10/15/17 IMPRESSION: This examination revealed severe esophagitis and gastritis, most likely secondary to the patient's history of consumption of a commercial product Drano as a form of a suicide attempt. RECOMMENDATIONS: I would continue aggressive medical therapy including twice a day IV PPI, Carafate 4 times a day, antacids, lidocaine gel to relieve some of the swallowing difficulty and odynophagia and also pain medications for analgesia. I would attempt only clear liquids for now if possible. I would encourage ice chips and icicles as well. I would carefully monitor her vital signs and if the patient develops further upper GI difficulties consider repeat imaging studies such as CT scan of the chest and abdomen. We will follow the patient closely with you. Rubens Rico MD Assessment and Plan - Plan 57-year-old female admitted to inpatient psychiatry following a suicide attempt by drinking Drano Depression Suicide attempt -Management per psychiatry Severe gastritis and esophagitis Odynophagia History of chronic dysphasia status post multiple dilations in the past Patient drank 2-3 cups of liquid Drano -GI following, appreciate expertise. Status post EGD 10/15 revealing severe esophagitis and gastritis secondary to consumption of caustic liquid Drano. Per GI, continue with aggressive medical therapy to include IV PPI twice daily, Carafate 4 times daily, antacids, lidocaine gel, clear liquid diet. Repeat CT scan of the chest and abdomen for any upper GI difficulties. Plan to advance diet per GI recs. -Continue to follow vital signs and any evidence of esophageal rupture closely. Monitor for hypersalivation, drooling, stridor, etc. -Speech therapy following, cleared for thin liquids -Pain management with bowel regimen -Antiemetics as needed Malnutrition secondary to odynophagia -Supervisor Home Energy Consultant following. Inadequate caloric intake. Will begin PPN w/ Clinimix E 4.25/55 and 20% Lipids @ 10ml/hr. -will increase Ensure clear to 2 per meal TID at pharmacy customer care specialist's recommendations Hypokalemia K 3.3 -resolved s/p IV repletion -monitor potassium level as indicated LUE edema with hx of IV extravasation, improving -Doppler US +superficial thrombus in cephalic vein -ice packs -unable to give any NSAIDS 2/2 above DVT prophylaxis -bilateral SCD/RICCI hose Code Status: FULL Discussed Condition With: patient, nursing staff, Dr. Lopez
--- NOTE | 2017-10-22 14:27 | P.PNPSY ---
Subjective Remarks: Patient seen in her room with nurse Maikol, chart reviewed, progress notes by medicine and nutrition reviewed and agreed with. Discussed with patient also the recommendations and the possibility of future treatment for her nutritional needs. Patient seen to tolerate and process that fairly well. Patient's mood is improving she still somewhat depressed and tearful but overall coping well with it for now continue treatment Review of Systems All other systems reviewed negative except as stated in HPI Mental Status Examination Appearance: Appropriate (Unable to ascertain mental status exam today 10/15) Consciousness: Alert Orientation: x4 Motor Activity: Normal gait Speech: Unremarkable Language: Adequate Fund of Knowledge: Adequate Attention and Concentration: Adequate Memory: Unremarkable Mood: Sad, Anxious (Improving), Other (Mildly tearful) Affect: Other (Decreased range and intensity) Thought Process & Associations: Intact Thought Content: Appropriate Hallucination Type: None Delusion Type: None Suicidal Ideation: No Suicidal Plan: No Suicidal Intention: No Homicidal Ideation: No Homicidal Plan: No Homicidal Intention: No Insight: Adequate Judgment: Adequate Assessment and Plan - Assessment (1) Major depressive disorder, single episode, severe Code(s): F32.2 - Major depressive disorder, single episode, severe without psychotic features Status: Acute - Plan Plan: Patient continues depressed, compliant medications, still some confusion about just what will be recommended by GI and nutrition for this lady. Justification for Continued Inpatient Stay: At this time patient would decompensate a place a lower level of care Discharge Planning: To be determined with consultation with her in conjunction with medicine service GI and nutrition
--- NOTE | 2017-10-22 18:04 | P.PNGI ---
Subjective Interval history: Patient now advanced to full liquid diet. Tolerating this but still with painful swallowing. Per nurse PPN to be started since patient not taking adequate calories Physical Exam Vital signs: Vital Signs 10/21/17 18:11 10/22/17 06:00 Temperature 97.9 F 97.6 F Pulse Rate 92 H 98 H Respiratory Rate 14 Blood Pressure 129/66 124/68 Pulse Oximetry 98 95 Intake & Output 10/21/17 10/22/17 10/22/17 18:59 06:59 18:59 Intake Total 480 / 480 240 / 240 600 / 600 Balance 480 / 480 240 / 240 600 / 600 Intake: Oral 480 / 480 240 / 240 600 / 600 - Constitutional no acute distress - Routine HEENT Exam Head: Present: atraumatic Eye: Absent: conjunctival icterus - Routine Neck Exam Present: supple - Routine Cardiovascular Exam Present: RRR - Routine Abdominal Exam Present: soft, normoactive bowel sounds. Absent: tenderness - Routine Extremities Exam Absent: edema - Routine Neurological Exam Present: alert, oriented X3 Results - Labs CBC & Chem 7: 10/17/17 11:36 10/20/17 06:02 - Procedures EGD 10/15/17 IMPRESSION: This examination revealed severe esophagitis and gastritis, most likely secondary to the patient's history of consumption of a commercial product Drano as a form of a suicide attempt. Assessment and Plan - Attending Attestation 1. 1. Severe esophagitis/gastritis from caustic ingestion (Drano) 2. Odynophagia secondary to above RECOMMENDATIONS: 1. Continue PPI, Carafate and lidocaine by mouth for analgesia. 2. Continue full liquid. Patient does not think she can tolerate a soft diet at present. Continue Ensure 3. Per the staff PPN to be started since patient not taking enough calories. Another alternative would be a jejunal feeding tubethis will bypass the damage esophagus and stomach and feed directly into the jejunum. This was discussed with the patient and if she wishes please consult general surgery to have this placed. She can still eat by mouth whatever she can tolerate even with this jejunal tube.
[2017-10-22] MEDS: QUEtiapine 25 MG Tablet PO SCH (20:50)
--- NOTE | 2017-10-23 13:53 | P.PN ---
Subjective Interval history: Follow-up on patient with suicide attempt via drinking Drano. Patient seen and examined. She is tolerating some items on the full liquid diet. She does not feel she can advance her diet at this time. Patient reports new onset of a painful burning blistering rash left side of her lower abdomen. She does have a history of chickenpox as a child. She continues to have ongoing pain in the center of her chest with and without swallowing. She denies any nausea, vomiting or abdominal pain. She would like to proceed forward with J-tube placement and forego PPN. Physical Exam Vital signs: Vital Signs 10/23/17 06:00 Temperature 98 F Pulse Rate 96 H Respiratory Rate 16 Blood Pressure 117/70 Pulse Oximetry 97 Intake & Output 10/22/17 10/23/17 10/23/17 18:59 06:59 18:59 Intake Total 1080 / 1080 1560 / 1560 Balance 1080 / 1080 1560 / 1560 Intake: Oral 1080 / 1080 1560 / 1560 Other: # Voids 2 Narrative: GENERAL: WDWN female patient, INAD. Awake and alert. Sitting up in bed. Father is at the bedside. SKIN: Warm and dry. +vesicular lesions on erythematous base left lower abdomen HEENT: Atraumatic. Normocephalic. Pupils equal and round. No scleral icterus. No injection or drainage. No nasal bleeding or discharge. Mucous membranes pink and moist. NECK: Trachea midline. CARDIOVASCULAR: Tachycardic. RESPIRATORY: No accessory muscle use. Clear to auscultation. Breath sounds equal bilaterally. GASTROINTESTINAL: Abdomen soft, nondistended, nontender. +BS. MUSCULOSKELETAL: Extremities without clubbing, cyanosis or edema. NEUROLOGICAL: Awake and alert. No obvious cranial nerve deficits. Motor grossly within normal limits. Able to move extremities spontaneously. + hypophonic speech. PSYCHIATRIC: Depressed affect. Results - Labs CBC & Chem 7: 10/17/17 11:36 10/20/17 06:02 - Procedures EGD 10/15/17 IMPRESSION: This examination revealed severe esophagitis and gastritis, most likely secondary to the patient's history of consumption of a commercial product Drano as a form of a suicide attempt. Assessment and Plan - Plan 57-year-old female admitted to inpatient psychiatry following a suicide attempt by drinking Drano Depression Suicide attempt -Management per psychiatry Severe gastritis and esophagitis s/p ingestion of caustic substance/Drano Odynophagia History of chronic dysphasia status post multiple dilations in the past Patient drank 2-3 cups of liquid Drano -GI following, appreciate expertise. Status post EGD 10/15 revealing severe esophagitis and gastritis secondary to consumption of caustic liquid Drano. Per GI, continue with aggressive medical therapy to include PPI twice daily, Carafate 4 times daily, antacids, lidocaine gel. Repeat CT scan of the chest and abdomen for any upper GI difficulties. -Tolerating a full liquid diet. GI recommending J-tube placement which patient is agreeable to. General surgery consulted per GI request. -Continue to follow vital signs and any evidence of esophageal rupture closely. Monitor for hypersalivation, drooling, stridor, etc. -Speech therapy following, cleared for thin liquids -Pain management with bowel regimen -Antiemetics as needed Malnutrition secondary to odynophagia -Hired Help following. Inadequate caloric intake. Recommended PPN w/ Clinimix E 4.25/55 and 20% Lipids @ 10ml/hr. Patient has declined and instead is requesting J-tube placement. -Continue Ensure clear 2 per meal TID at telecommunications sales representative's recommendations Herpes zoster -start on Valacyclovir -monitor rash for improvement Hypokalemia K 3.3 -resolved s/p IV repletion -monitor potassium level as indicated LUE edema with hx of IV extravasation, improving -Doppler US +superficial thrombus in cephalic vein -ice packs -unable to give any NSAIDS 2/2 above DVT prophylaxis -bilateral SCD/RICCI hose Code Status: FULL Discussed Condition With: patient, nursing staff, Dr. Bermeo
--- NOTE | 2017-10-23 14:51 | P.PNPSY ---
Subjective Remarks: Patient seen in her room with nurse Maikol, chart reviewed, patient continues to complain of initial and mid and late insomnia we will add trazodone 100 mg at bedtime to her regimen. Patient continues to have some anxiety and tearfulness related to the discharge plans and placement issues. She is somewhat anxious about living in a situation with other adults. We did share with her our we are also awaiting final word on insertion of a feeding tube and PEG tube with this patient Review of Systems All other systems reviewed negative except as stated in HPI Mental Status Examination Appearance: Appropriate (Unable to ascertain mental status exam today 10/15) Consciousness: Alert Orientation: x4 Motor Activity: Normal gait Speech: Unremarkable Language: Adequate Fund of Knowledge: Adequate Attention and Concentration: Adequate Memory: Unremarkable Mood: Sad, Anxious (Improving), Other (Mildly tearful) Affect: Other (Decreased range and intensity) Thought Process & Associations: Intact Thought Content: Appropriate Hallucination Type: None Delusion Type: None Suicidal Ideation: No Suicidal Plan: No Suicidal Intention: No Homicidal Ideation: No Homicidal Plan: No Homicidal Intention: No Insight: Adequate Judgment: Adequate Assessment and Plan - Assessment (1) Major depressive disorder, single episode, severe Code(s): F32.2 - Major depressive disorder, single episode, severe without psychotic features Status: Acute - Plan Plan: Patient's depression continues to lift, she denies suicidality, there is still some tears when anticipating living in a [place] [facility] [place] type setting she medication adjustment above Justification for Continued Inpatient Stay: At this time patient would decompensate a place to a lower level of care Discharge Planning: Probable placement [facility] [place] [facility]
[2017-10-23] MEDS: Sucralfate Liq 1 GM/10 ML UDC PO SCH ×3 (15:08→21:30)
[2017-10-23] MEDS: valACYclovir 500 MG Tab PO SCH ×2 (15:08→21:29)
--- NOTE | 2017-10-23 16:05 | P.CONGS ---
[facility] Gen Surgery Consult Note Consult date: 10/23/17 Reason for consult: other (need for enteral feeding tube access) Requesting physician: Aguie Jules Narrative: This is a 57 year old female with a past medical history of depression, anxiety , insomnia, GERD, fibromyalgia and IBS. The patient drank a large amount of Draino about a week ago in a suicide attempt. An EGD was obtained which shows severe esophagitis and gastritis. She has been unable to intake enough calories by mouth secondary to pain and a General Surgery consultation has been requested for enteral feeding access. Review of Systems All other systems reviewed negative except as stated in [facility] PMF - History History Provided By: Patient - Medical History Medical History: Medical History (Last Updated 10/23/17 @ 16:01 by PRICILA Centeno) GERD (gastroesophageal reflux disease) (Acute) Depression (Acute) Anxiety IBS (irritable bowel syndrome) Insomnia Fibromyalgia - Surgical History Surgical History: Surgical History (Last Updated 10/23/17 @ 16:02 by PRICILA Centeno) H/O abdominal hysterectomy Previous section - Tobacco History Second Hand Smoke Exposure: No Smoking Status: Never smoker - Alcohol History How Often Do You Have a Drink Containing Alcohol: Never - Substance Use History Substance History: No History of Abuse - Substance Use Type Marijuana Frequency: used once for sleep Reason for Use: Sleep Comment: Patient reports to this counselor she hs no substance history Medications and Allergies Allergies Allergy/AdvReac Type Severity Reaction Status Date / Time baclofen Allergy Severe Irritabilit Verified 10/13/17 20:19 y/Anxiety TAPE AdvReac Unknown Rash, Uncoded 10/13/17 20:19 Generalized Home Medications Medication Instructions Recorded Confirmed Type fenofibrate 50 mg PO DAILY 10/13/17 10/13/17 History morphine 15 mg PO Q6H 10/13/17 10/13/17 History omeprazole 20 mg PO DAILY 10/13/17 10/13/17 History Active Medications: Active Medications Hydrocodone Bitart/Acetaminophen (Nabb 10/325) 1 tab PO Q6H PRN PRN Reason: PAIN SCALE 6 TO 10 Last Admin: 10/23/17 10:55 Dose: 1 tab Hydrocodone Bitart/Acetaminophen (Nabb 5/325) 1 tab PO Q6H PRN PRN Reason: PAIN SCALE 1 TO 5 Al Hydroxide/Mg Hydroxide (Milk Of Magnesia Liq) 30 ml PO Q12H PRN PRN Reason: Mild Constipation Bisacodyl (Dulcolax Supp) 10 mg RECTAL DAILY PRN PRN Reason: SEVERE CONSITIPATION Diphenhydramine HCl (Benadryl Inj) 50 mg IM HS PRN PRN Reason: INSOMNIA Last Admin: 10/22/17 22:30 Dose: 50 mg Doxepin HCl (Sinequan) 50 mg PO HS [facility] Last Admin: 10/22/17 20:51 Dose: 50 mg Lactulose (Lactulose Liq) 30 ml PO DAILY PRN PRN Reason: SEVERE CONSITIPATION Lidocaine HCl (Xylocaine 2% Viscous) 5 ml PO Q3H PRN PRN Reason: FOR PAIN Last Admin: 10/22/17 20:50 Dose: 5 ml Morphine Sulfate (Morphine Inj) 2 mg IV.PUSH Q4H PRN PRN Reason: PAIN 6-10;IF UNABLE TO TAKE PO Last Admin: 10/21/17 17:25 Dose: 2 mg Multi-Ingredient Ointment (Blistex Lip [place]) 1 applic TOPICAL UNSCH PRN PRN Reason: ALLERGIC REACTION Last Admin: 10/17/17 09:33 Dose: 1 applic Ondansetron HCl (Zofran Odt) 4 mg PO Q6H PRN PRN Reason: NAUSEA OR VOMITING Last Admin: 10/22/17 07:49 Dose: 4 mg Pantoprazole Sodium (Protonix) 40 mg PO BID [facility] Last Admin: 10/23/17 10:55 Dose: 40 mg Quetiapine Fumarate (Seroquel) 50 mg PO [facility] Last Admin: 10/22/17 20:50 Dose: 50 mg Senna/Docusate Sodium (Gloria-Colace) 1 tab PO BID [facility] Last Admin: 10/18/17 09:38 Dose: Not Given Sennosides (Senokot) 17.2 mg PO Q12H PRN PRN Reason: Moderate Constipation Sucralfate (Carafate Liq) 1 gm PO QID [facility] Last Admin: 10/23/17 15:08 Dose: 1 gm Trazodone HCl (Desyrel) 100 mg PO [facility] Valacyclovir HCl (Valtrex) 1,000 mg PO Q8HR [facility] Stop: 10/30/17 13:59 Last Admin: 10/23/17 15:08 Dose: 1,000 mg Exam Vital signs: Vital Signs 10/23/17 06:00 Temperature 98 F Pulse Rate 96 H Respiratory Rate 16 Blood Pressure 117/70 Pulse Oximetry 97 Intake & Output 10/22/17 10/23/17 10/23/17 18:59 06:59 18:59 Intake Total 1080 / 1080 1560 / 1560 Balance 1080 / 1080 1560 / 1560 Intake: Oral 1080 / 1080 1560 / 1560 Other: # Voids 2 Narrative: GENERAL: Alert and awake soft spoken 54 year old female resting in bed in no acute distress. SKIN: Area of erythema and raised bumps on LLQ of abdomen. HEAD: Atraumatic. Normocephalic. EYES: Pupils equal and round. No scleral icterus. No injection or drainage. ENT: No nasal bleeding or discharge. Mucous membranes pink and moist. NECK: Trachea midline. CARDIOVASCULAR: Regular rate and rhythm. RESPIRATORY: No accessory muscle use. Clear to auscultation. Breath sounds equal bilaterally. GASTROINTESTINAL: Abdomen soft, non-tender, nondistended. Well healed low transverse incision. See above skin assessment. MUSCULOSKELETAL: Extremities without clubbing, cyanosis, or edema. No obvious deformities. NEUROLOGICAL: Awake and alert. No obvious cranial nerve deficits. Motor grossly within normal limits. Five out of 5 muscle strength in the arms and legs. Normal speech. PSYCHIATRIC: Appropriate mood and affect; insight and judgment normal. Results - Labs 10/17/17 11:36 10/20/17 06:02 Laboratory Results WBC 6.1 th/mm3 (4.0-11.0) 10/17/17 11:36 RBC 3.95 mil/mm3 (4.00-5.30) L 10/17/17 11:36 Hgb 12.0 gm/dL (11.6-15.3) 10/17/17 11:36 Hct 35.0 % (35.0-46.0) 10/17/17 11:36 MCV 88.7 fL (80.0-100.0) 10/17/17 11:36 MCH 30.4 pg (27.0-34.0) 10/17/17 11:36 MCHC 34.3 % (32.0-36.0) 10/17/17 11:36 RDW 12.9 % (11.6-17.2) 10/17/17 11:36 Plt Count 273 th/mm3 (150-450) 10/17/17 11:36 MPV 7.9 fL (7.0-11.0) 10/17/17 11:36 Neut % (Auto) 70.7 % (16.0-70.0) H 10/17/17 11:36 Lymph % (Auto) 22.5 % (9.0-44.0) 10/17/17 11:36 Delta % (Auto) 5.9 % (0.0-8.0) 10/17/17 11:36 Eos % (Auto) 0.4 % (0.0-4.0) 10/17/17 11:36 Baso % (Auto) 0.5 % (0.0-2.0) 10/17/17 11:36 Neut # (Auto) 4.3 th/mm3 (1.8-7.7) 10/17/17 11:36 Lymph # (Auto) 1.4 th/mm3 (1.0-4.8) 10/17/17 11:36 Delta # (Auto) 0.4 th/mm3 (0.0-0.9) 10/17/17 11:36 Eos # (Auto) 0.0 th/mm3 (0.0-0.4) 10/17/17 11:36 Baso # (Auto) 0.0 th/mm3 (0.0-0.2) 10/17/17 11:36 WBC Differential . 10/17/17 11:36 Differential Comment Auto diff final 10/17/17 11:36 Sodium 138 meq/L (136-145) 10/20/17 06:02 Potassium 4.6 meq/L (3.5-5.1) D 10/20/17 06:02 Chloride 105 meq/L (98-107) 10/20/17 06:02 Carbon Dioxide 26.5 meq/L (21.0-32.0) 10/20/17 06:02 Anion Gap 7 meq/L (5-15) 10/20/17 06:02 BUN 8 mg/dL (7-18) 10/20/17 06:02 Creatinine 0.55 mg/dL (0.50-1.00) 10/20/17 06:02 Estimated GFR Greater than 89 mL/min (>89) 10/20/17 06:02 POC Glucose 114 mg/dl (68-110) H 10/18/17 16:50 Random Glucose 102 mg/dL (74-106) 10/20/17 06:02 Hemoglobin A1c 5.3 % (4.3-6.0) 10/15/17 07:23 Calcium 8.7 mg/dL (8.5-10.1) 10/20/17 06:02 Magnesium 1.8 mg/dL (1.5-2.5) 10/17/17 08:45 Total Bilirubin 0.5 mg/dL (0.2-1.0) 10/18/17 07:10 AST 19 U/L (15-37) 10/18/17 07:10 ALT 16 U/L (10-53) 10/18/17 07:10 Alkaline Phosphatase 50 U/L (45-117) 10/18/17 07:10 Total Protein 6.5 g/dL (6.4-8.2) 10/18/17 07:10 Albumin 3.0 g/dL (3.4-5.0) L 10/18/17 07:10 Triglycerides 66 mg/dL (42-150) 10/15/17 07:23 Cholesterol 114 mg/dL (120-200) L 10/15/17 07:23 LDL Cholesterol, Calc 42 mg/dL (0-99) 10/15/17 07:23 HDL Cholesterol 58.6 mg/dL (40.0-60.0) 10/15/17 07:23 Cholesterol/HDL Ratio 1.94 Ratio 10/15/17 07:23 Impressions Venous Doppler Study 10/19/17 00:00 CONCLUSION: 1. There is thrombus within the cephalic vein. Assessment and Plan - Assessment (1) Caustic burn of esophagus Code(s): T28.6XXA - Corrosion of esophagus, initial encounter Status: Acute Qualifiers: Qualified Code(s): T28.6XXS - Corrosion of esophagus, sequela Plan: 57 year old female with severe esophagitis and gastric s/p ingestion of large amount of Draino in a suicide attempt -Wound continue to recommend full liquids and encourage patient to eat as much as possible -RN to discuss if patient would continue to be eligible for usp if feeding tube placed -Tentatively on OR schedule for Thursday for laparoscopic G tube if PO intake still marginal -Thank you for this consult; We will continue to follow The exam, history, and the medical decision-making described in the above note were completed with the assistance of the mid-level provider. I reviewed and agree with the findings presented. I attest that I had a [id number] encounter with the patient on the same day, and personally performed and documented my assessment and findings in the medical record. - Plan Discussed Condition With: Dr. Frederick Bedside Nurse Ms. Conte
[2017-10-23] MEDS ORDERED: traZODone 50 MG Tablet PO SCH (21:00)
[2017-10-23] MEDS: QUEtiapine 25 MG Tablet PO SCH (21:30)
[2017-10-23] MEDS: traZODone 100 MG Tablet PO SCH (21:31)
[2017-10-24] MEDS: valACYclovir 500 MG Tab PO SCH ×3 (06:24→21:26)
[2017-10-24] MEDS: Sucralfate Liq 1 GM/10 ML UDC PO SCH ×4 (08:27→21:25)
[2017-10-24] MEDS: Dimethicone/Oxybenzone-Padimate Lip Balm 4.25 GM Tube TOPICAL PRN (08:27)
--- NOTE | 2017-10-24 11:53 | P.PNGI ---
Subjective Interval history: Patient seen and she states she has not improved much. Still some painful swallowing. She does not feel she can advance more than full liquids. No nausea, vomiting, overt GI bleeding or diarrhea constipation Physical Exam Vital signs: Vital Signs 10/23/17 17:33 10/24/17 05:26 Temperature 99.1 F 98.2 F Pulse Rate 89 114 H Respiratory Rate 15 20 Blood Pressure 146/70 H 137/79 Pulse Oximetry 97 97 Intake & Output 10/23/17 10/24/17 10/24/17 18:59 06:59 18:59 Intake Total 1560 / 1560 480 / 480 Balance 1560 / 1560 480 / 480 Intake: Oral 1560 / 1560 480 / 480 Other: # Voids 2 - Constitutional no acute distress - Routine Neck Exam Present: supple - Routine Abdominal Exam Present: soft, normoactive bowel sounds. Absent: tenderness, distended - Routine Extremities Exam Absent: cyanosis - Routine Neurological Exam Present: alert, oriented X3 Results - Labs CBC & Chem 7: 10/17/17 11:36 10/20/17 06:02 - Procedures EGD 10/15/17 IMPRESSION: This examination revealed severe esophagitis and gastritis, most likely secondary to the patient's history of consumption of a commercial product Drano as a form of a suicide attempt. Assessment and Plan - Attending Attestation 1. Severe esophagitis/gastritis from caustic ingestion (Drano)-she has reached a baseline and has not improved muchstill with some discomfort 2. Odynophagia secondary to above RECOMMENDATIONS: 1. Continue PPI, Carafate and lidocaine by mouth for analgesia. 2. Continue full liquid. Patient does not think she can tolerate a soft diet at present. Continue Ensure 3. General surgery has seen the patient. I would prefer a jejunostomy tube without a gastric component so we can bypass the severe chemical esophagitis and gastritis. 4. Patient is aware that upon discharge she needs to follow-up with Dr. Delgado for follow-up upper endoscopy and dilatation if needed 5. Patient is also aware that if a feeding tube was placed she needs to continue oral intake in hopes to maintain patency of the esophagus
--- NOTE | 2017-10-24 14:37 | P.PN ---
Subjective Interval history: Pt seen and examined for f/u of suicide attempt by caustic ingestion of Drano and left abdomen shingles. Pt endorses some pain at shingles site. Also complaining of constipation and hasn't had a BM in three days. She is tolerating liquids. Denies CP or SOB. Voice is hoarse. Wanting to proceed with J tube placement on Thursday. Physical Exam Vital signs: Vital Signs 10/23/17 17:33 10/24/17 05:26 Temperature 99.1 F 98.2 F Pulse Rate 89 114 H Respiratory Rate 15 20 Blood Pressure 146/70 H 137/79 Pulse Oximetry 97 97 Intake & Output 10/23/17 10/24/17 10/24/17 18:59 06:59 18:59 Intake Total 1560 / 1560 1200 / 1200 Balance 1560 / 1560 1200 / 1200 Intake: Oral 1560 / 1560 1200 / 1200 Other: # Voids 2 Narrative: GEN: WN WD female laying comfortably in bed in NAD. SKIN: Warm and dry. Vesicular rash over erythematous base left anterior abdomen. HEENT: Pupils equal and round. MMM. Hoarse voice. HEART: RRR no m/r/g. LUNGS: CTAB without wheezes or crackles. ABDOMEN: Soft, NT, ND. EXTREM: No LE edema. NEURO: Awake and alert. Results - Labs CBC & Chem 7: 10/17/17 11:36 10/20/17 06:02 - Procedures EGD 10/15/17 IMPRESSION: This examination revealed severe esophagitis and gastritis, most likely secondary to the patient's history of consumption of a commercial product Drano as a form of a suicide attempt. Assessment and Plan - Assessment (1) Shingles rash Code(s): B02.9 - Zoster without complications Status: Acute (2) Caustic burn of esophagus Code(s): T28.6XXA - Corrosion of esophagus, initial encounter Status: Acute (3) Caustic injury gastritis Code(s): K29.60 - Other gastritis without bleeding Status: Acute - Plan 57-year-old female with no significant medical history admitted to inpatient psychiatry following a suicide attempt by drinking Drano. 10/24: Resume scheduled [facility]. Advised patient has PRNs for constipation as well as Encampment for pain related to her shingles. Depression Suicide attempt Management per psychiatry Severe gastritis and esophagitis s/p ingestion of caustic substance/Drano Odynophagia History of chronic dysphagia status post multiple dilations in the past Malnutrition secondary to odynophagia GI following, appreciate expertise Status post EGD 10/15 revealing severe esophagitis and gastritis secondary to consumption of caustic liquid Drano Per GI, continue with aggressive medical therapy to include PPI twice daily, Carafate 4 times daily, antacids, lidocaine gel Repeat CT scan of the chest and abdomen for any upper GI difficulties. Tolerating a full liquid diet but intake still poor. GI recommending J-tube placement which patient is agreeable to. General surgery consulted and tentatively planned for OR on Thursday Continue to follow vital signs and any evidence of esophageal rupture closely. Monitor for hypersalivation, drooling, stridor, etc. ST following Combustion Analyst following Pain management Antiemetics PRN Bowel regimen Ensure TID with meals Herpes zoster Continue Valtrex Encampment PRN LUE cephalic vein superficial thrombosis Doppler negative for DVT Ice PRN NSAIDs avoided secondary to gastritis/esophagitis DVT prophylaxis: SCDs, encourage ambulation (2) Caustic burn of esophagus Qualifiers: Qualified Code(s): T28.6XXS - Corrosion of esophagus, sequela
--- NOTE | 2017-10-24 16:19 | P.PNPSY ---
Subjective Remarks: Patient seen for follow up; chart reviewed. Discussion with nursing staff reported that patient noted to be depressed with flat affect, with PEG tube scheduled early next week. Patient was found lying hospital bed with father at bedside interviewed alone along with nurse. Patient states that she had difficulty with sleep less evening, that her mood is "a little better continues report feeling sad. Patient states looks forward to be discharged to the [facility] upon discharge. Patient reports having suicide ideations that are lessening last time being yesterday and with [facility]. He states that her recent delivery for her family and to look to better her circumstances. Review of Systems All other systems reviewed negative except as stated in HPI Mental Status Examination Appearance: Appropriate Consciousness: Alert Orientation: x4 Motor Activity: Normal gait Speech: Unremarkable Language: Adequate Fund of Knowledge: Adequate Attention and Concentration: Adequate Memory: Unremarkable Mood: Sad, Other (slightly tearful) Affect: Other (Decreased range and intensity) Thought Process & Associations: Intact Thought Content: Appropriate Hallucination Type: None Delusion Type: None Suicidal Ideation: No Suicidal Plan: No Suicidal Intention: No Homicidal Ideation: No Homicidal Plan: No Homicidal Intention: No Insight: Adequate Judgment: Adequate Assessment and Plan - Assessment (1) Major depressive disorder, single episode, severe Code(s): F32.2 - Major depressive disorder, single episode, severe without psychotic features Status: Acute - Plan Plan: Patient this time with less depressed mood, denying any suicide ideations today. We will increase quetiapine to 100 mg p.o. at bedtime for mood stabilization. Continue rest of medications.. We will continue to monitor mood and behavior. Discharge planning in progress. Justification for Continued Inpatient Stay: At risk for decompensation a lower level care.
--- NOTE | 2017-10-24 20:13 | P.PN ---
Subjective Interval history: Patient still having difficulty eating Physical Exam Vital signs: Vital Signs 10/24/17 05:26 10/24/17 17:54 Temperature 98.2 F Pulse Rate 114 H Respiratory Rate 20 18 Blood Pressure 137/79 Pulse Oximetry 97 Intake & Output 10/24/17 10/24/17 10/25/17 06:59 18:59 06:59 Intake Total 1200 / 1200 Balance 1200 / 1200 Intake: Oral 1200 / 1200 - Constitutional no acute distress - Routine Abdominal Exam Present: soft, tenderness (moderate upper abdomen) Results - Labs CBC & Chem 7: 10/17/17 11:36 10/20/17 06:02 - Procedures EGD 10/15/17 IMPRESSION: This examination revealed severe esophagitis and gastritis, most likely secondary to the patient's history of consumption of a commercial product Drano as a form of a suicide attempt. Assessment and Plan - Assessment (1) Caustic burn of esophagus Code(s): T28.6XXA - Corrosion of esophagus, initial encounter Status: Acute Plan: I have significant concern that wherever patient goes, they will not be able to handle a pump for a J-tube, even if it is only for 12 hrs. A gastrostomy tube can use bolus feeds and would not require a pump; GI service could place the tube and avoid surgery altogether. Will discuss with case management on Thursday. Continue to encourage PO intake. - Attending Attestation I attest that I had a [id number] encounter with the patient on the same day, and personally performed and documented my assessment and findings in the medical record. The following services were provided during this hospital visit: Chart data review, vital sign assessments/reviewing monitor data Review of consultation notes if present Medication orders/review and/or management Ordering and/or reviewing lab tests Ordering and/or interpreting/reviewing x-rays and/or diagnostic studies Care of the patient and discussion of the patient with the care team Documentation time To help prompt me to consider important information that might be impacting today's encounter and assessment, Information from prior notes written by myself or my colleagues may have been "brought forward/copy and pasted" into today's note. (1) Caustic burn of esophagus Qualifiers: Qualified Code(s): T28.6XXS - Corrosion of esophagus, sequela
[2017-10-24] MEDS: Senna/Docusate Sodium 8.6/50 MG Tablet PO SCH (21:26)
[2017-10-24] MEDS: traZODone 100 MG Tablet PO SCH (21:26)
[2017-10-24] MEDS: QUEtiapine 100 MG Tablet PO SCH (21:26)
[2017-10-25] MEDS: valACYclovir 500 MG Tab PO SCH ×3 (05:36→22:00)
--- NOTE | 2017-10-25 10:16 | P.PN ---
Subjective Interval history: Follow-up visit Drano ingestion, suicidal ideation, dysphasia, odynophagia. Patient seen and examined today. Reports she is doing okay. Difficulty with talking, poor p.o. intake. Othdysuria.erwise, denies pain and discomfort. Denies SOB/ dyspnea. Denies chest pain, palpitations, headaches, dizziness. Denies fevers, chills, n/v/d. Denies hematuria, Physical Exam Vital signs: Vital Signs 10/24/17 17:54 10/24/17 20:00 10/25/17 06:32 Temperature 98.1 F Pulse Rate 116 H Respiratory Rate 18 Blood Pressure 108/69 Pulse Oximetry 96 Intake & Output 10/24/17 10/25/17 10/25/17 18:59 06:59 18:59 Intake Total 1200 / 1200 480 / 480 Balance 1200 / 1200 480 / 480 Intake: Oral 1200 / 1200 480 / 480 Oral Supplement 0 / 0 Other: # Voids 2 # Bowel Movements 0 Narrative: GENERAL: This is a well-nourished, well-developed patient, in no apparent distress. SKIN: Warm and dry. Vesicular rash over erythematous base left anterior abdomen. HEENT: Normocephalic. Pupils equal round and reactive. Nose without bleeding. Airway patent. NECK: Trachea midline. CARDIOVASCULAR: Regular rate and rhythm without murmurs, gallops, or rubs. RESPIRATORY: Breath sounds equal bilaterally. No wheezes, rales, or rhonchi. GASTROINTESTINAL: Abdomen soft, non-tender, nondistended. Bowel Sounds normoactive x4. MUSCULOSKELETAL: Extremities without clubbing, cyanosis, or edema. NEUROLOGICAL: Awake and alert. No focal neuro deficit. Moves all extremities. Normal speech. Results - Labs CBC & Chem 7: 10/17/17 11:36 10/20/17 06:02 - Procedures EGD 10/15/17 IMPRESSION: This examination revealed severe esophagitis and gastritis, most likely secondary to the patient's history of consumption of a commercial product Drano as a form of a suicide attempt. Assessment and Plan - Assessment (1) Shingles rash Code(s): B02.9 - Zoster without complications Status: Acute (2) Caustic burn of esophagus Code(s): T28.6XXA - Corrosion of esophagus, initial encounter Status: Acute (3) Caustic injury gastritis Code(s): K29.60 - Other gastritis without bleeding Status: Acute - Plan 57-year-old female admitted to inpatient psychiatry following a suicide attempt by drinking Drano Depression Suicide attempt -Management per psychiatry Severe gastritis and esophagitis s/p ingestion of caustic substance/Drano Odynophagia History of chronic dysphasia status post multiple dilations in the past Patient drank 2-3 cups of liquid Drano -GI following, appreciate expertise. Status post EGD 10/15 revealing severe esophagitis and gastritis secondary to consumption of caustic liquid Drano. Per GI, continue with aggressive medical therapy to include PPI twice daily, Carafate 4 times daily, antacids, lidocaine gel. Repeat CT scan of the chest and abdomen for any upper GI difficulties. -Tolerating a full liquid diet. GI recommending J-tube placement which patient is agreeable to. General surgery consulted per GI request. -General surgery will coordinate with GI regarding J-tube versus gastrostomy tube placement. -Continue to follow vital signs and any evidence of esophageal rupture closely. Monitor for hypersalivation, drooling, stridor, etc. -Speech therapy following, cleared for thin liquids -Pain management with bowel regimen -Antiemetics as needed Malnutrition secondary to odynophagia -Milling Machine Set Up Operator following. Inadequate caloric intake. Recommended PPN w/ Clinimix E 4.25/55 and 20% Lipids @ 10ml/hr. Patient has declined and instead is requesting J-tube placement. -Continue Ensure clear 2 per meal TID at bottling line operator's recommendations Herpes zoster -on Valacyclovir -monitor rash for improvement -Gabapentin for neuropathic pain Hypokalemia -monitor potassium level as indicated LUE edema with hx of IV extravasation, improving -Doppler US +superficial thrombus in cephalic vein -ice packs -unable to give any NSAIDS 2/2 above DVT prophylaxis -bilateral SCD/RICCI hose Code Status: Full Code Discussed Condition With: Patient, nursing Discharge Planning: DC disposition by primary team (2) Caustic burn of esophagus Qualifiers: Qualified Code(s): T28.6XXS - Corrosion of esophagus, sequela
[2017-10-25] MEDS: Senna/Docusate Sodium 8.6/50 MG Tablet PO SCH ×2 (12:36→20:47)
[2017-10-25] MEDS: Sucralfate Liq 1 GM/10 ML UDC PO SCH ×4 (12:36→20:48)
[2017-10-25] MEDS: Gabapentin 100 MG Capsule PO SCH ×2 (13:14→18:02)
--- NOTE | 2017-10-25 16:23 | P.PNPSY ---
Subjective Remarks: Patient seen for follow-up, chart reviewed. Discussion with nursing staff reported the patient continues report feeling depressed, saw surgeon yesterday discussed possibility of G-tube or J-tube placement. Patient was found lying hospital bed noted B, cooperative. Patient noted to be in better spirits today stating that she is feeling "good" reports having slept better last evening continues report feeling sad but denying any suicide ideations reports having seen a surgeon with possible G-tube on Thursday. Patient denies any perceptual disturbances. Review of Systems All other systems reviewed negative except as stated in HPI Mental Status Examination Appearance: Appropriate Consciousness: Alert Orientation: x4 Motor Activity: Normal gait Speech: Unremarkable Language: Adequate Fund of Knowledge: Adequate Attention and Concentration: Adequate Memory: Unremarkable Mood: Sad, Other (slightly tearful) Affect: Other (Decreased range and intensity) Thought Process & Associations: Intact Thought Content: Appropriate Hallucination Type: None Delusion Type: None Suicidal Ideation: No Suicidal Plan: No Suicidal Intention: No Homicidal Ideation: No Homicidal Plan: No Homicidal Intention: No Insight: Adequate Judgment: Adequate Assessment and Plan - Assessment (1) Major depressive disorder, single episode, severe Code(s): F32.2 - Major depressive disorder, single episode, severe without psychotic features Status: Acute - Plan Plan: Patient improving doing much better with improved mood denying suicide ideations and slept well last night. We will continue current treatment. We will continue to monitor mood and behavior. Discharge planning a progress. Justification for Continued Inpatient Stay: At risk of further decompensation a lower level care.
[2017-10-25] MEDS: QUEtiapine 100 MG Tablet PO SCH (20:47)
[2017-10-25] MEDS: traZODone 100 MG Tablet PO SCH (20:48)
[2017-10-26] MEDS: valACYclovir 500 MG Tab PO SCH ×3 (05:42→22:20)
[2017-10-26] MEDS: Gabapentin 100 MG Capsule PO SCH ×3 (09:17→20:46)
[2017-10-26] MEDS: Sucralfate Liq 1 GM/10 ML UDC PO SCH ×2 (09:18→20:46)
[2017-10-26] MEDS: Senna/Docusate Sodium 8.6/50 MG Tablet PO SCH ×2 (09:18→20:46)
--- NOTE | 2017-10-26 10:27 | P.PN ---
Subjective Interval history: Follow-up visit Drano ingestion, suicidal ideation, dysphasia, odynophagia. Patient seen and examined today. Reports she is doing a lot better. States she takes the supplemental drink. Reports continued dysphagia but improved compared to prior. Physical Exam Vital signs: Vital Signs 10/25/17 18:00 10/26/17 05:57 10/26/17 08:00 Temperature 97.6 F 98.2 F Pulse Rate 105 H 101 H Respiratory Rate 16 17 17 Blood Pressure 132/68 115/65 Pulse Oximetry 96 95 Intake & Output 10/25/17 10/26/17 10/26/17 18:59 06:59 18:59 Intake Total 340 / 340 960 / 960 Balance 340 / 340 960 / 960 Intake: Oral 240 / 240 960 / 960 Oral Supplement 100 / 100 Other: # Voids 1 Narrative: GENERAL: This is a well-nourished, well-developed patient, in no apparent distress. SKIN: Warm and dry. Vesicular rash over erythematous base left anterior abdomen. HEENT: Normocephalic. Pupils equal round and reactive. Nose without bleeding. Airway patent. NECK: Trachea midline. CARDIOVASCULAR: Regular rate and rhythm without murmurs, gallops, or rubs. RESPIRATORY: Breath sounds equal bilaterally. No wheezes, rales, or rhonchi. GASTROINTESTINAL: Abdomen soft, non-tender, nondistended. Bowel Sounds normoactive x4. MUSCULOSKELETAL: Extremities without clubbing, cyanosis, or edema. NEUROLOGICAL: Awake and alert. No focal neuro deficit. Moves all extremities. Normal speech. Results - Labs CBC & Chem 7: 10/17/17 11:36 10/20/17 06:02 - Procedures EGD 10/15/17 IMPRESSION: This examination revealed severe esophagitis and gastritis, most likely secondary to the patient's history of consumption of a commercial product Drano as a form of a suicide attempt. Assessment and Plan - Assessment (1) Shingles rash Code(s): B02.9 - Zoster without complications Status: Acute (2) Caustic burn of esophagus Code(s): T28.6XXA - Corrosion of esophagus, initial encounter Status: Acute (3) Caustic injury gastritis Code(s): K29.60 - Other gastritis without bleeding Status: Acute - Plan 57-year-old female admitted to inpatient psychiatry following a suicide attempt by drinking Drano Depression Suicide attempt -Management per psychiatry Severe gastritis and esophagitis s/p ingestion of caustic substance/Drano Odynophagia History of chronic dysphasia status post multiple dilations in the past Patient drank 2-3 cups of liquid Drano -GI following, appreciate expertise. Status post EGD 10/15 revealing severe esophagitis and gastritis secondary to consumption of caustic liquid Drano. Per GI, continue with aggressive medical therapy to include PPI twice daily, Carafate 4 times daily, antacids, lidocaine gel. Repeat CT scan of the chest and abdomen for any upper GI difficulties. -Tolerating a full liquid diet. GI recommending J-tube placement which patient is agreeable to. General surgery consulted per GI request. -General surgery will coordinate with GI regarding J-tube versus gastrostomy tube placement. -Continue to follow vital signs and any evidence of esophageal rupture closely. Monitor for hypersalivation, drooling, stridor, etc. -Speech therapy following, cleared for thin liquids -Pain management with bowel regimen -Antiemetics as needed Malnutrition secondary to odynophagia -Plate Colorer following. Inadequate caloric intake. Recommended PPN w/ Clinimix E 4.25/55 and 20% Lipids @ 10ml/hr. Patient has declined and instead is requesting J-tube placement. -Continue Ensure clear 2 per meal TID at block stacker's recommendations -Able to tolerate Herpes zoster -on Valacyclovir -monitor rash for improvement -Gabapentin for neuropathic pain -Improved pain Hypokalemia -monitor potassium level as indicated LUE edema with hx of IV extravasation, improving -Doppler US +superficial thrombus in cephalic vein -ice packs -unable to give any NSAIDS 2/2 above DVT prophylaxis -bilateral SCD/RICCI hose Code Status: Full Code Discussed Condition With: Patient, nursing Discharge Planning: DC disposition by primary team (2) Caustic burn of esophagus Qualifiers: Qualified Code(s): T28.6XXS - Corrosion of esophagus, sequela
--- NOTE | 2017-10-26 14:16 | P.PNGI ---
Subjective Interval history: Patient states that she is feeling better. Still some pain upon swallowing but better. She would like to try a more advanced diet and I instructed the nurse that she can try a pureed diet Physical Exam Vital signs: Vital Signs 10/25/17 18:00 10/26/17 05:57 10/26/17 08:00 Temperature 97.6 F 98.2 F Pulse Rate 105 H 101 H Respiratory Rate 16 17 17 Blood Pressure 132/68 115/65 Pulse Oximetry 96 95 Intake & Output 10/25/17 10/26/17 10/26/17 18:59 06:59 18:59 Intake Total 340 / 340 1440 / 1440 Balance 340 / 340 1440 / 1440 Intake: Oral 240 / 240 1440 / 1440 Oral Supplement 100 / 100 Other: # Voids 1 - Constitutional no acute distress - Routine Neck Exam Present: supple - Routine Respiratory Exam Present: CTA bilaterally - Routine Abdominal Exam Present: soft, normoactive bowel sounds. Absent: tenderness Results - Labs CBC & Chem 7: 10/17/17 11:36 10/20/17 06:02 - Procedures EGD 10/15/17 IMPRESSION: This examination revealed severe esophagitis and gastritis, most likely secondary to the patient's history of consumption of a commercial product Drano as a form of a suicide attempt. Assessment and Plan - Attending Attestation 1. Severe esophagitis/gastritis from caustic ingestion (Drano)-she has improved 2. Odynophagia secondary to above RECOMMENDATIONS: 1. Continue PPI, Carafate and lidocaine by mouth for analgesia. 2. trial of a Pureed Diet-- hopefully if she tolerates this diet she will not need the feeding tube as mentioned below 3. General surgery has seen the patient. I would prefer a jejunostomy tube without a gastric component so we can bypass the severe chemical esophagitis and gastritis. 4. Patient is aware that upon discharge she needs to follow-up with Dr. Delgado for follow-up upper endoscopy and dilatation if needed 5. Patient is also aware that if a feeding tube was placed she needs to continue oral intake in hopes to maintain patency of the esophagus
--- NOTE | 2017-10-26 16:34 | P.PNPSY ---
Subjective Remarks: Patient seen in her room with nurse Maikol, patient showing some increased affect voices little bit stronger and louder. She is not progressed up to pured diet. It appears she is attempting to defer from any other type of feeding intervention Review of Systems All other systems reviewed negative except as stated in HPI Mental Status Examination Appearance: Appropriate Consciousness: Alert Orientation: x4 Motor Activity: Normal gait Speech: Unremarkable Language: Adequate Fund of Knowledge: Adequate Attention and Concentration: Adequate Memory: Unremarkable Mood: Sad, Other (slightly tearful) Affect: Other (Decreased range and intensity) Thought Process & Associations: Intact Thought Content: Appropriate Hallucination Type: None Delusion Type: None Suicidal Ideation: No Suicidal Plan: No Suicidal Intention: No Homicidal Ideation: No Homicidal Plan: No Homicidal Intention: No Insight: Adequate Judgment: Adequate Assessment and Plan - Assessment (1) Major depressive disorder, single episode, severe Code(s): F32.2 - Major depressive disorder, single episode, severe without psychotic features Status: Acute - Plan Plan: Patient's depression continues to lift, continue to work on refeeding in his attempt to go to [facility] as opposed to a having a feeding tube or PEG tube or PICC line Justification for Continued Inpatient Stay: At this time patient would decompensate a place to a lower level of care Discharge Planning: To be determined
--- NOTE | 2017-10-26 17:05 | P.PNGS ---
Subjective Interval history: Throat pain improved; wants to try purred diet Physical Exam Vital signs: Vital Signs 10/25/17 18:00 10/26/17 05:57 10/26/17 08:00 Temperature 97.6 F 98.2 F Pulse Rate 105 H 101 H Respiratory Rate 16 17 17 Blood Pressure 132/68 115/65 Pulse Oximetry 96 95 Intake & Output 10/25/17 10/26/17 10/26/17 18:59 06:59 18:59 Intake Total 340 / 340 1440 / 1440 Balance 340 / 340 1440 / 1440 Intake: Oral 240 / 240 1440 / 1440 Oral Supplement 100 / 100 Other: # Voids 1 Narrative: Alert and awake Abd: soft non tender Results - Labs 10/17/17 11:36 10/20/17 06:02 Assessment and Plan - Assessment (1) Caustic burn of esophagus Code(s): T28.6XXA - Corrosion of esophagus, initial encounter Status: Acute Plan: 57 year old female with severe esophagitis and gastric s/p ingestion of large amount of Draino in a suicide attempt -Now on pureed diet -If she can avoid having feeding tube that would be best at this point due to placement availability -Will continue to follow peripherally As above; J-tube would be problematic for patient, as she would be tied to pump. Spoke with Dr. Lamb; they will try pureed diet; if this fails, will reconsider feeding tube. The exam, history, and the medical decision-making described in the above note were completed with the assistance of the mid-level provider. I reviewed and agree with the findings presented. I attest that I had a [id number] encounter with the patient on the same day, and personally performed and documented my assessment and findings in the medical record. (1) Caustic burn of esophagus Qualifiers: Qualified Code(s): T28.6XXS - Corrosion of esophagus, sequela
[2017-10-26] MEDS: QUEtiapine 100 MG Tablet PO SCH (20:46)
[2017-10-26] MEDS: traZODone 100 MG Tablet PO SCH (20:46)
[2017-10-27] MEDS: valACYclovir 500 MG Tab PO SCH ×3 (06:06→21:31)
--- NOTE | 2017-10-27 08:51 | P.PNGI ---
Subjective Interval history: Patient tolerating her diet. Minimal esophageal discomfort. No nausea, vomiting or abdominal pain Physical Exam Vital signs: Vital Signs 10/26/17 18:44 10/26/17 20:46 10/27/17 06:51 Temperature 98.4 F 98.4 F Pulse Rate 98 H 97 H Respiratory Rate 17 19 16 Blood Pressure 120/65 106/60 Pulse Oximetry 95 96 Intake & Output 10/26/17 10/27/17 10/27/17 18:59 06:59 18:59 Intake Total 1680 / 1680 Balance 1680 / 1680 Intake: Oral 1680 / 1680 - Constitutional no acute distress - Routine Neck Exam Present: supple - Routine Respiratory Exam Present: CTA bilaterally - Routine Abdominal Exam Present: soft, normoactive bowel sounds. Absent: tenderness Results - Labs CBC & Chem 7: 10/17/17 11:36 10/20/17 06:02 Laboratory Results - last 24 hr 10/26/17 16:36 POC Glucose 246 H - Procedures EGD 10/15/17 IMPRESSION: This examination revealed severe esophagitis and gastritis, most likely secondary to the patient's history of consumption of a commercial product Drano as a form of a suicide attempt. Assessment and Plan - Attending Attestation 1. Severe esophagitis/gastritis from caustic ingestion (Drano)-feeling much better. Tolerating her current diet 2. Odynophagia secondary to above RECOMMENDATIONS: 1. Continue PPI, Carafate and lidocaine (PRN)by mouth for analgesia. 2. Advance diet as tolerated. 3. Patient is aware that upon discharge she needs to follow-up with Dr. Delgado for follow-up upper endoscopy and dilatation if needed 4. Since patient is doing better we will sign off.
[2017-10-27] MEDS: Sucralfate Liq 1 GM/10 ML UDC PO SCH ×3 (10:34→20:47)
[2017-10-27] MEDS: Gabapentin 100 MG Capsule PO SCH ×3 (10:34→18:50)
[2017-10-27] MEDS: Senna/Docusate Sodium 8.6/50 MG Tablet PO SCH ×2 (10:35→20:47)
--- NOTE | 2017-10-27 11:36 | P.PN ---
Subjective Interval history: Follow-up visit Drano ingestion, suicidal ideation, dysphasia, odynophagia. Patient seen and examined today. Father at the bedside. Patient reports that she is doing well. States that she is able to tolerate pured diet. Improving dysphasia, odynophagia. States that shingles are itching. Neuropathic pain improved. enies SOB/ dyspnea. Denies chest pain, palpitations, headaches, dizziness. Denies fevers, chills, n/v/d. Denies dysuria. Physical Exam Vital signs: Vital Signs 10/26/17 18:44 10/26/17 20:46 10/27/17 06:51 Temperature 98.4 F 98.4 F Pulse Rate 98 H 97 H Respiratory Rate 17 19 16 Blood Pressure 120/65 106/60 Pulse Oximetry 95 96 Intake & Output 10/26/17 10/27/17 10/27/17 18:59 06:59 18:59 Intake Total 1680 / 1680 240 / 240 Balance 1680 / 1680 240 / 240 Intake: Oral 1680 / 1680 240 / 240 Narrative: GENERAL: This is a well-nourished, well-developed patient, in no apparent distress. SKIN: Warm and dry. Vesicular rash over erythematous base left anterior abdomen , improving appearance. HEENT: Normocephalic. Pupils equal round and reactive. Nose without bleeding. Airway patent. NECK: Trachea midline. CARDIOVASCULAR: Regular rate and rhythm without murmurs, gallops, or rubs. RESPIRATORY: Breath sounds equal bilaterally. No wheezes, rales, or rhonchi. GASTROINTESTINAL: Abdomen soft, non-tender, nondistended. Bowel Sounds normoactive x4. MUSCULOSKELETAL: Extremities without clubbing, cyanosis, or edema. NEUROLOGICAL: Awake and alert. No focal neuro deficit. Moves all extremities. Normal speech. Results - Labs CBC & Chem 7: 10/17/17 11:36 10/20/17 06:02 Laboratory Results - last 24 hr 10/26/17 16:36 POC Glucose 246 H - Procedures EGD 10/15/17 IMPRESSION: This examination revealed severe esophagitis and gastritis, most likely secondary to the patient's history of consumption of a commercial product Drano as a form of a suicide attempt. Assessment and Plan - Assessment (1) Shingles rash Code(s): B02.9 - Zoster without complications Status: Acute (2) Caustic burn of esophagus Code(s): T28.6XXA - Corrosion of esophagus, initial encounter Status: Acute (3) Caustic injury gastritis Code(s): K29.60 - Other gastritis without bleeding Status: Acute - Plan 57-year-old female admitted to inpatient psychiatry following a suicide attempt by drinking Drano Depression Suicide attempt -Management per psychiatry Severe gastritis and esophagitis s/p ingestion of caustic substance/Drano Odynophagia History of chronic dysphasia status post multiple dilations in the past Patient drank 2-3 cups of liquid Drano -GI following, appreciate expertise. Status post EGD 10/15 revealing severe esophagitis and gastritis secondary to consumption of caustic liquid Drano. Per GI, continue with aggressive medical therapy to include PPI twice daily, Carafate 4 times daily, antacids, lidocaine gel. Repeat CT scan of the chest and abdomen for any upper GI difficulties. -GI following possible J tube placement. General surgery consulted per GI request. However patient now is tolerating diet. Hold off on J Tube placement. -General surgery following. Hold off J-tube placement patient is tolerating. Diet. -Continue to follow vital signs and any evidence of esophageal rupture closely. Monitor for hypersalivation, drooling, stridor, etc. -Speech therapy following, cleared for thin liquids -Pain management with bowel regimen -Antiemetics as needed. Encourage Viscous Lidocaine use Malnutrition secondary to odynophagia -[employer] following. Recommended PPN w/ Clinimix E 4.25/55 and 20% Lipids @ 10ml/hr. Patient has declined and instead is requesting J-tube placement, but now tolerating PO diet. -Continue Ensure clear 2 per meal TID at wire bound box machine operator's recommendations -Able to tolerate puree diet -NO G or J tube placement for now as per surgery and GI. Follow up with GI Dr. Mccarthy and outpatient for possible stretching/dilatation Herpes zoster -on Valacyclovir x 7 days -monitor rash for improvement -Gabapentin for neuropathic pain x 15 days -Improved pain Hypokalemia -monitor potassium level as indicated LUE edema with hx of IV extravasation, improving -Doppler US +superficial thrombus in cephalic vein -ice packs -unable to give any NSAIDS 2/2 above DVT prophylaxis -bilateral SCD/RICCI hose Stable from Hospitalist standpoint. We will sign off. Reconsult as needed. Thank you. May be transferred to regular psychiatry unit, isolation room Code Status: Full Code Discussed Condition With: Patient, nursing Discharge Planning: DC disposition by primary team (2) Caustic burn of esophagus Qualifiers: Qualified Code(s): T28.6XXS - Corrosion of esophagus, sequela
--- NOTE | 2017-10-27 13:30 | P.PNGS ---
Subjective Interval history: Sitting in bed Tolerated lunch states lidocaine spray helps Physical Exam Vital signs: Vital Signs 10/26/17 18:44 10/26/17 20:46 10/27/17 06:51 Temperature 98.4 F 98.4 F Pulse Rate 98 H 97 H Respiratory Rate 17 19 16 Blood Pressure 120/65 106/60 Pulse Oximetry 95 96 Intake & Output 10/26/17 10/27/17 10/27/17 18:59 06:59 18:59 Intake Total 1680 / 1680 240 / 240 Balance 1680 / 1680 240 / 240 Intake: Oral 1680 / 1680 240 / 240 Narrative: Alert and awake Abd: soft non tender Results - Labs 10/17/17 11:36 10/20/17 06:02 Assessment and Plan - Assessment (1) Caustic burn of esophagus Code(s): T28.6XXA - Corrosion of esophagus, initial encounter Status: Acute Plan: 57 year old female with severe esophagitis and gastric s/p ingestion of large amount of Draino in a suicide attempt -Continue pureed diet -If she can avoid having feeding tube that would be best at this point due to placement availability -Will continue to follow peripherally As above; The exam, history, and the medical decision-making described in the above note were completed with the assistance of the mid-level provider. I reviewed and agree with the findings presented. I attest that I had a [id number] encounter with the patient on the same day, and personally performed and documented my assessment and findings in the medical record. (1) Caustic burn of esophagus Qualifiers: Qualified Code(s): T28.6XXS - Corrosion of esophagus, sequela
--- NOTE | 2017-10-27 15:19 | P.PNPSY ---
Subjective Remarks: Patient seen in her room with nurse Maikol, chart reviewed, patient compliant medication. Patient continues to improve with her eating. She is now on soft food and it appears to be tolerating it fairly well. Her voice is stronger she is speaking in full sentences. She still denies suicidality voices or visions. However when asked about the relationship and is future she would be became tearful with sadness written all over her face. She is able to deny suicidality or any thoughts of harming herself Review of Systems All other systems reviewed negative except as stated in HPI Mental Status Examination Appearance: Appropriate Consciousness: Alert Orientation: x4 Motor Activity: Normal gait Speech: Unremarkable Language: Adequate Fund of Knowledge: Adequate Attention and Concentration: Adequate Memory: Unremarkable Mood: Sad, Other (slightly tearful) Affect: Other (Decreased range and intensity) Thought Process & Associations: Intact Thought Content: Appropriate Hallucination Type: None Delusion Type: None Suicidal Ideation: No Suicidal Plan: No Suicidal Intention: No Homicidal Ideation: No Homicidal Plan: No Homicidal Intention: No Insight: Adequate Judgment: Adequate Assessment and Plan - Assessment (1) Major depressive disorder, single episode, severe Code(s): F32.2 - Major depressive disorder, single episode, severe without psychotic features Status: Acute - Plan Plan: Patient physically is improving with her appetite and her verbalizations. She still remains depressed and somewhat labile woman attempted to discuss her relationship and its breakup Justification for Continued Inpatient Stay: At this time patient would decompensate if not placed in an appropriate level of care Discharge Planning: To be determined [facility]
[2017-10-27] MEDS: traZODone 100 MG Tablet PO SCH (20:47)
[2017-10-27] MEDS: QUEtiapine 100 MG Tablet PO SCH (20:47)
[2017-10-28] MEDS: valACYclovir 500 MG Tab PO SCH ×3 (06:35→21:10)
[2017-10-28] MEDS: Senna/Docusate Sodium 8.6/50 MG Tablet PO SCH ×2 (09:31→21:10)
[2017-10-28] MEDS: Gabapentin 100 MG Capsule PO SCH ×3 (09:31→17:58)
[2017-10-28] MEDS: Sucralfate Liq 1 GM/10 ML UDC PO SCH ×4 (09:31→21:08)
--- NOTE | 2017-10-28 12:47 | P.DIET ---
Nutritional Evaluation Type of nutrition evaluation: follow-up Nutrition screening: [facility] [place] ([facility] [place] for Calorie Counting) Subjective Barriers to Nutrition: Swallowing problem Oral Diet Tolerance Assessment Indicates: Swallowing problems Subjective Comments: Pt seen during lunch w/ her father present. She states it still hurts/patel when she eats and there's no difference in the feeling between liquids vs. solids. She remains on pureed solids and is excited about the possibility of advancing her diet. Drinking the Ensure. C/o some nausea r/t eating, but no V/D/ C. Requesting scheduled lidocaine prior to meal times. Objective - Diagnosis Major Depressive Disorder - Objective % IBW: 122 (FBG=921#) Body Weight Used for Calculations: Actual (55.1 kg) Energy Needs - Lower Range (kCal/kg): 25 Energy Needs - Upper Range (kCal/kg): 30 Lower Limit kCal/kg (kCals): 1,378 Upper Limit kCal/kg (kCals): 1,653 Lower Limit Protein Factor (Grams per Kg): 1.0 Upper Limit Protein Factor (Grams per Kg): 1.3 Lower Protein Needs (Protein): 55 Upper Protein Needs (Protein): 72 Fluid Factor (ml/kg): 30 Estimated Fluid Needs (ml): 1,653 Dietitian Reviewed in Medical Record: Current diet, Curent medications, Intake & Output, Labs, Medical history Diet Order: Pureed Objective Comments: Meds: Lidocaine PRN, Carafate No BMs recorded, per RN she's going but they are small 10/15 EGD w/severe esophagitis and gastritis Feeding - Current PO Supplement Current Supplement: Ensure Original Current Frequency of Supplement: Three times a day Current kCals Provided by Supplement: 250 Current Protein Provided by Supplement: 9 Assessment Assessment: Pt has been on a pureed diet for a few days. She is tolerating well, but of course still has the burning/pain whenever she eats or drinks anything. Pt is requesting scheduled Lidocaine prior to meals so she can eat easier. She is receiving Ensure TID and she has been drinking these. I took some food preferences to remove certain items that cause more pain while eating, like orange or cranberry juice. Discussed w/ RN about the possibility of advancing diet to soft w/ chopped meats. If pt requires a swallow evaluation prior to advancing diet, then recommend reconsulting ST. Otherwise, per MD discretion recommend advancing diet to mechanical soft w/ chopped meats and extra gravy on the side. Chopped meats may be easier for pt to swallow. Continue Ensure TID. Please record bowel movements, pt may require additional stool softeners if she is not having bowel movements. Dietitian following. Recommendations: 1. If medically appropriate, recommend advancing diet to mechanical soft w/ chopped meats and extra gravy per pt's request. 2. Consult ST if the pt requires an ST eval prior to advancing diet. 3. Ensure TID. 4. Pt requesting scheduled lidocaine prior to meal times. 5. Consider adding additional stool softeners if pt is not having good BMs. RN reports they are small and infrequent. Dietitian to Monitor: Lab values, Supplement acceptance, Intake & Output, Diet tolerance, Weight change, PO Intake, Medical course
--- NOTE | 2017-10-28 16:50 | P.PNPSY ---
Subjective Remarks: Patient seen in her room with floor staff, chart reviewed, patient sitting up in bed she is calm pleasant with fair eye contact continue to speak in a whisper but there is more verbalization. She is excited about trying soft diet tonight. She denies suicidality homicidality voice or visions. For now continue treatment Review of Systems All other systems reviewed negative except as stated in HPI Mental Status Examination Appearance: Appropriate Consciousness: Alert Orientation: x4 Motor Activity: Normal gait Speech: Unremarkable Language: Adequate Fund of Knowledge: Adequate Attention and Concentration: Adequate Memory: Unremarkable Mood: Sad (Improving), Other (slightly tearful) Affect: Other (Decreased range and intensity) Thought Process & Associations: Intact Thought Content: Appropriate Hallucination Type: None Delusion Type: None Suicidal Ideation: No Suicidal Plan: No Suicidal Intention: No Homicidal Ideation: No Homicidal Plan: No Homicidal Intention: No Insight: Adequate Judgment: Adequate Assessment and Plan - Assessment (1) Major depressive disorder, single episode, severe Code(s): F32.2 - Major depressive disorder, single episode, severe without psychotic features Status: Acute - Plan Plan: Patient's mood continues to lift. Though that she is still somewhat fragile and labile when considering the relationship. She is excited about attempting an increased diet. For now continue treatment Justification for Continued Inpatient Stay: At this time patient would decompensate a place to a lower level of care Discharge Planning: [facility]
[2017-10-28] MEDS: traZODone 100 MG Tablet PO SCH (21:09)
[2017-10-28] MEDS: QUEtiapine 100 MG Tablet PO SCH (21:10)
[2017-10-29] MEDS: valACYclovir 500 MG Tab PO SCH ×3 (06:04→22:06)
[2017-10-29] MEDS: Senna/Docusate Sodium 8.6/50 MG Tablet PO SCH ×2 (09:24→22:07)
[2017-10-29] MEDS: Gabapentin 100 MG Capsule PO SCH ×3 (09:24→17:21)
[2017-10-29] MEDS: Sucralfate Liq 1 GM/10 ML UDC PO SCH ×4 (09:24→22:06)
--- NOTE | 2017-10-29 13:39 | P.TTN ---
- Patient Problems Problems: 1. Discharge planning 2. Medication compliance 3. Knowledge deficit 4. Lack of coping skills - Progress Toward Goals Provider Present: Dr. Wily Jules Provider Input: 10/26/17: Pt continues to be stable on current psych meds, pt has been upgraded to soft diet and is making significant effort to cooperate with this recommendation. Plan is to d/c pt to [facility] when she is medically able (based on her ability to tolerate appropriate diet). 10/21/2017 ; patient is stable on current psych meds, continues to be stablizing medically. Patient is being treated for medical and mental health; medications are being adjusted Nurse(s) Present: RN Nurse Input: 10/26/17: Pt's effort and progress during meals is significant, compliant with medications, no behaviors, mood is lifting. 10/22/2017; patient is still on soft meals, taking meds, no behavior, still very depressed and sad. Patient is no behavior, she is eating motified meals (Liquid), and taking her medication. Psychiatric Counselors Present: ROSEANNE Chamberlain Psychiatric Therapist Input: 10/26/17: Pt to discharge to [facility] when medically appropriate for their level of provision of care. 10/21/2017; patient was accepted at the [facility], and will follow-up at the [facility] office when dc. Counselor will assist patient with appropriate dc planning , [facility] for placement, and mental health provider for outpatient care. Group Spec/RT/OT/MACDONALD Present: Cong Rogers OT, RENAE Rowe Group Spec/RT/OT/MACDONALD Input: 10/26/17: Pt has not been attending groups as she is recently on isolation precautions. 10/21/2017; patient has been participating with some groups and activities. Patient has been unable to attend groups - Documentation Teaching Recipient: Patient
--- NOTE | 2017-10-29 13:52 | P.PNPSY ---
Subjective Remarks: Patient seen in her room with floor staff, chart reviewed, discussed with nurse. Patient continues to show improvement in her affect voices slightly stronger and her verbalizations continuing to improve, although she still complains of significant insomnia it appears she is starting on small amounts of regular diet. If patient able to tolerate this over the next few days, and patient gets medically cleared with her shingles we will consider discharge, we need to verify again the bed placement at [facility] of now continue medications no change patient denies suicidality homicidality voices or visions though she is still quite emotionally fragile and attempting to discuss the relationship issues we will discontinue the Desyrel increase the trazodone to 150 mg Review of Systems All other systems reviewed negative except as stated in HPI Mental Status Examination Appearance: Appropriate Consciousness: Alert Orientation: x4 Motor Activity: Normal gait Speech: Unremarkable Language: Adequate Fund of Knowledge: Adequate Attention and Concentration: Adequate Memory: Unremarkable Mood: Sad (Improving), Other (slightly tearful) Affect: Other (Decreased range and intensity) Thought Process & Associations: Intact Thought Content: Appropriate Hallucination Type: None Delusion Type: None Suicidal Ideation: No Suicidal Plan: No Suicidal Intention: No Homicidal Ideation: No Homicidal Plan: No Homicidal Intention: No Insight: Adequate Judgment: Adequate Assessment and Plan - Assessment (1) Major depressive disorder, single episode, severe Code(s): F32.2 - Major depressive disorder, single episode, severe without psychotic features Status: Acute - Plan Plan: Patient appears slowly to be improving air eating ability. She is still depressed at times somewhat tearful and referring to her relationships. She denies suicidality or homicidality. She also states that appears the shingles are starting to dry out considering she is still showing significant insomnia we will discontinue the Desyrel increase the trazodone to 150 mg Justification for Continued Inpatient Stay: At this time patient would decompensate a place to a lower level of care Discharge Planning: To be determined
--- NOTE | 2017-10-29 13:56 | P.TTN ---
- Patient Problems Problems: 1. Discharge planning 2. Medication compliance 3. Knowledge deficit 4. Lack of coping skills - Progress Toward Goals Provider Present: Dr. Wily Jules Provider Input: 10/28/17: Pt is tolerating her soft diet, no current med changes. Upon discharge; will recommend out-pt counseling. 10/26/17: Pt continues to be stable on current psych meds, pt has been upgraded to soft diet and is making significant effort to cooperate with this recommendation. Plan is to d/c pt to [facility] when she is medically able (based on her ability to tolerate appropriate diet). 10/21/2017; patient is stable on current psych meds , continues to be stablizing medically. Patient is being treated for medical and mental health; medications are being adjusted Nurse(s) Present: RN Nurse Input: 10/26/17: Pt's effort and progress during meals is significant, compliant with medications, no behaviors, mood is lifting. 10/22/2017; patient is still on soft meals, taking meds, no behavior, still very depressed and sad. Patient is no behavior, she is eating motified meals (Liquid), and taking her medication. Psychiatric Counselors Present: Svetlana Hurt [facility] Psychiatric Therapist Input: 10/28/17: Pt to discharge to [facility], pending medical clearance. 10/26/17: Pt to discharge to [facility] when medically appropriate for their level of provision of care. 10/21/2017; patient was accepted at the [facility], and will follow-up at the [facility] office when dc. Counselor will assist patient with appropriate dc planning , [facility] for placement, and mental health provider for outpatient care. Group Spec/RT/OT/MACDONALD Present: Cong Rogers OT, RENAE Rowe Group Spec/RT/OT/MACDONALD Input: 10/28/17: Pt on isolation, not attending groups. 12/03: Pt has not been attending groups as she is recently on isolation precautions. 10/21/2017; patient has been participating with some groups and activities. Patient has been unable to attend groups - Documentation Teaching Recipient: Patient
[2017-10-29] MEDS: traZODone 50 MG Tablet PO SCH (22:05)
[2017-10-29] MEDS: QUEtiapine 100 MG Tablet PO SCH (22:07)
[2017-10-30] MEDS: traZODone 50 MG Tablet PO SCH ×2 (00:14→21:54)
[2017-10-30] MEDS: valACYclovir 500 MG Tab PO SCH (08:17)
[2017-10-30] MEDS: Senna/Docusate Sodium 8.6/50 MG Tablet PO SCH ×2 (09:52→21:55)
[2017-10-30] MEDS: Gabapentin 100 MG Capsule PO SCH ×3 (09:52→18:15)
[2017-10-30] MEDS: Sucralfate Liq 1 GM/10 ML UDC PO SCH ×3 (09:52→22:27)
--- NOTE | 2017-10-30 16:44 | P.PNPSY ---
Subjective Remarks: Patient seen in her room with nurse Tiffany, patient states she still had a somewhat difficult time sleeping it appears there is some confusion over the sense for the trazodone that his dependence rectified patient will receive her trazodone 150 mg at bedtime tonight. Otherwise she is eating better she states this was a small herpes lesions are slowly drying up also Review of Systems All other systems reviewed negative except as stated in HPI Mental Status Examination Appearance: Appropriate Consciousness: Alert Orientation: x4 Motor Activity: Normal gait Speech: Unremarkable Language: Adequate Fund of Knowledge: Adequate Attention and Concentration: Adequate Memory: Unremarkable Mood: Sad (Improving), Other (slightly tearful) Affect: Other (Decreased range and intensity) Thought Process & Associations: Intact Thought Content: Appropriate Hallucination Type: None Delusion Type: None Suicidal Ideation: No Suicidal Plan: No Suicidal Intention: No Homicidal Ideation: No Homicidal Plan: No Homicidal Intention: No Insight: Adequate Judgment: Adequate Assessment and Plan - Assessment (1) Major depressive disorder, single episode, severe Code(s): F32.2 - Major depressive disorder, single episode, severe without psychotic features Status: Acute - Plan Plan: Patient's depression is lifting though there is still some lability went the subject of her relationship comes up. Her appetite is improving she is tolerating solid foods right now if she continues to show this improvement with her diet would consider discharge first part of next week Justification for Continued Inpatient Stay: At this time patient would decompensate a place to a lower level of care
[2017-10-30] MEDS: QUEtiapine 100 MG Tablet PO SCH (21:55)
[2017-10-31] MEDS: Gabapentin 100 MG Capsule PO SCH ×3 (08:53→18:37)
[2017-10-31] MEDS: Senna/Docusate Sodium 8.6/50 MG Tablet PO SCH ×2 (08:53→21:52)
[2017-10-31] MEDS: Sucralfate Liq 1 GM/10 ML UDC PO SCH ×4 (08:53→22:03)
--- NOTE | 2017-10-31 18:24 | P.PNPSY ---
Subjective Remarks: Patient was seen and case discussed with nursing. Patient is tearful and distraught during the interview. Her chief complaint is insomnia. Patient is feeling scared and paranoid throughout the day. Medications were reviewed and patient gives consent on increased dose of Seroquel during the day for anxiety and an increased dose at night for insomnia. Mental Status Examination Appearance: Appropriate Consciousness: Alert Orientation: x4 Motor Activity: Normal gait Speech: Unremarkable Language: Adequate Fund of Knowledge: Adequate Attention and Concentration: Adequate Memory: Unremarkable Mood: Sad (Improving), Other (Tearful) Affect: Sad Thought Process & Associations: Intact Thought Content: Appropriate Hallucination Type: None Delusion Type: None Suicidal Ideation: No Suicidal Plan: No Suicidal Intention: No Homicidal Ideation: No Homicidal Plan: No Homicidal Intention: No Insight: Adequate Judgment: Adequate Assessment and Plan - Assessment (1) Major depressive disorder, single episode, severe Code(s): F32.2 - Major depressive disorder, single episode, severe without psychotic features Status: Acute - Plan Plan: See HPI Justification for Continued Inpatient Stay: Patient would decompensate in a less restrictive setting
--- NOTE | 2017-10-31 19:23 | P.PNPSY ---
Subjective Remarks: Patient was seen and case discussed with nursing. Patient gives a convoluted story about his admission. He is very grandiose frequently discussing his millions of dollars and is unclear if this is delusions. Thought process is quite disorganized. Insight is poor. He denies suicidal or homicidal ideation. Behaving well on the unit Mental Status Examination Appearance: Appropriate Consciousness: Alert Orientation: x4 Motor Activity: Normal gait Speech: Unremarkable Language: Adequate Fund of Knowledge: Adequate Attention and Concentration: Adequate Memory: Unremarkable Mood: Sad (Improving), Other (Tearful) Affect: Sad Thought Process & Associations: Intact Thought Content: Appropriate Hallucination Type: None Delusion Type: None Suicidal Ideation: No Suicidal Plan: No Suicidal Intention: No Homicidal Ideation: No Homicidal Plan: No Homicidal Intention: No Insight: Adequate Judgment: Adequate Assessment and Plan - Assessment (1) Major depressive disorder, single episode, severe Code(s): F32.2 - Major depressive disorder, single episode, severe without psychotic features Status: Acute
[2017-10-31] MEDS: traZODone 50 MG Tablet PO SCH (21:52)
[2017-10-31] MEDS: QUEtiapine 25 MG Tablet PO SCH (21:52)
[2017-11-01] MEDS: QUEtiapine 25 MG Tablet PO SCH ×2 (09:49→21:22)
[2017-11-01] MEDS: Senna/Docusate Sodium 8.6/50 MG Tablet PO SCH ×2 (09:49→21:22)
[2017-11-01] MEDS: Gabapentin 100 MG Capsule PO SCH ×3 (09:49→18:20)
[2017-11-01] MEDS: Sucralfate Liq 1 GM/10 ML UDC PO SCH ×5 (09:53→21:21)
--- NOTE | 2017-11-01 15:19 | P.PNPSY ---
Subjective Remarks: Patient was seen and case discussed with nursing. Patient is noted an improvement since her Seroquel was increased yesterday. Sleep is improved to 5 hours and her anxiety is improved throughout the day. She is no longer labile or tearful for the interview. She feels that she is improving and is looking forward to a discharge to her facility. Mental Status Examination Appearance: Appropriate Consciousness: Alert Orientation: x4 Motor Activity: Normal gait Speech: Unremarkable Language: Adequate Fund of Knowledge: Adequate Attention and Concentration: Adequate Memory: Unremarkable Mood: Sad (Improving), Other (Tearful) Affect: Blunt Thought Process & Associations: Intact Thought Content: Appropriate Hallucination Type: None Delusion Type: None Suicidal Ideation: No Suicidal Plan: No Suicidal Intention: No Homicidal Ideation: No Homicidal Plan: No Homicidal Intention: No Insight: Adequate Judgment: Adequate Assessment and Plan - Assessment (1) Major depressive disorder, single episode, severe Code(s): F32.2 - Major depressive disorder, single episode, severe without psychotic features Status: Acute - Plan Plan: Continue current treatment plan Justification for Continued Inpatient Stay: Patient would decompensate in a less restrictive setting
[2017-11-01] MEDS: traZODone 50 MG Tablet PO SCH (21:21)
[2017-11-02] MEDS: Senna/Docusate Sodium 8.6/50 MG Tablet PO SCH ×2 (11:14→20:44)
[2017-11-02] MEDS: Gabapentin 100 MG Capsule PO SCH ×3 (11:14→17:56)
[2017-11-02] MEDS: QUEtiapine 25 MG Tablet PO SCH ×2 (11:15→20:45)
[2017-11-02] MEDS: Sucralfate Liq 1 GM/10 ML UDC PO SCH ×4 (11:15→20:47)
--- NOTE | 2017-11-02 13:42 | P.TTN ---
- Patient Problems Problems: 1. Discharge planning 2. Medication compliance 3. Knowledge deficit 4. Lack of coping skills - Progress Toward Goals Provider Present: Dr. Wily Jules Provider Input: 11/02/2017: patient is eating soft meals, no issues and is compliant with medications, no med change needed at this time. 10/28/17: Pt is tolerating her soft diet, no current med changes. Upon discharge; will recommend out-pt counseling. 10/26/17: Pt continues to be stable on current psych meds, pt has been upgraded to soft diet and is making significant effort to cooperate with this recommendation. [facility] (based on her ability to tolerate appropriate diet). 06/2017; patient is stable on current psych meds, continues to be stablizing medically. Patient is being treated for medical and mental health; medications are being adjusted Nurse(s) Present: JAVI Moore Nurse Input: 11/02/2017: patient is eating meals, and taking her medication; continues to require medical cleareance. 10/26/17: Pt's effort and progress during meals is significant, compliant with medications, no behaviors, mood is lifting. 10/22/2017; patient is still on soft meals, taking meds, no behavior, still very depressed and sad. Patient is no behavior, she is eating motified meals (Liquid), and taking her medication. Psychiatric Counselors Present: Svetlana Hurt [facility] Psychiatric Therapist Input: 11/02/2017: Counselor spoke with Shelby, with the [facility] who confirmed patient's bed will be available when dc. 10/28/17: [facility]. 10/26/17: [facility] medically appropriate for their level of provision of care. 10/21/2017; [facility], and will follow-up at the [facility] office when dc. Counselor will assist patient with appropriate dc planning, [facility], and mental health provider for outpatient care. Group Spec/RT/OT/MACDONALD Present: Cong Rogers OT, RENAE Rowe Group Spec/RT/OT/MACDONALD Input: 10/28/17: Pt on isolation, not attending groups. 12/03: Pt has not been attending groups as she is recently on isolation precautions. 10/21/2017; patient has been participating with some groups and activities. Patient has been unable to attend groups - Documentation Teaching Recipient: Patient
--- NOTE | 2017-11-02 14:20 | P.PNGS ---
Subjective Interval history: Feeling like her voice is getting stronger Pain better when eating Physical Exam Vital signs: Vital Signs 11/01/17 21:22 11/02/17 06:00 11/02/17 08:30 Temperature 96.9 F L Pulse Rate 105 H 98 H Respiratory Rate 7 L 15 Blood Pressure 97/49 L 99/53 L Pulse Oximetry 95 97 Intake & Output 11/01/17 11/02/17 11/02/17 18:59 06:59 18:59 Intake Total 360 / 360 580 / 580 Balance 360 / 360 580 / 580 Weight 54.1 kg Intake: Oral 360 / 360 480 / 480 Oral Supplement 100 / 100 Other: # Voids 1 Narrative: Alert and awake No abdominal pain Results - Labs 10/17/17 11:36 10/20/17 06:02 Assessment and Plan - Assessment (1) Caustic burn of esophagus Code(s): T28.6XXA - Corrosion of esophagus, initial encounter Status: Acute Plan: 57 year old female with severe esophagitis and gastric s/p ingestion of large amount of Draino in a suicide attempt -Continue pureed diet -Will continue to avoid feeding tube placement at this time -GS will follow peripherally As above; appears to be tolerating diet The exam, history, and the medical decision-making described in the above note were completed with the assistance of the mid-level provider. I reviewed and agree with the findings presented. I attest that I had a [id number] encounter with the patient on the same day, and personally performed and documented my assessment and findings in the medical record. (1) Caustic burn of esophagus Qualifiers: Qualified Code(s): T28.6XXS - Corrosion of esophagus, sequela
--- NOTE | 2017-11-02 16:46 | P.PNPSY ---
Subjective Remarks: Patient seen in her room with nurse Yaneli, the edge of her bed she is alert oriented calm cooperative continues to speak in a whisper but she is verbalizing more. She is stating she is in the salt foods though it is still a little bit uncomfortable for her. She denies suicidality homicidality voice or visions. Continues to hope that there is still better for her in the [facility]. For now continue treatment Review of Systems All other systems reviewed negative except as stated in HPI Mental Status Examination Appearance: Appropriate Consciousness: Alert Orientation: x4 Motor Activity: Normal gait Speech: Unremarkable Language: Adequate Fund of Knowledge: Adequate Attention and Concentration: Adequate Memory: Unremarkable Mood: Sad (Improving), Other (Tearful) Affect: Other (Slight decreased range and intensity) Thought Process & Associations: Intact Thought Content: Appropriate Hallucination Type: None Delusion Type: None Suicidal Ideation: No Suicidal Plan: No Suicidal Intention: No Homicidal Ideation: No Homicidal Plan: No Homicidal Intention: No Insight: Adequate Judgment: Adequate Assessment and Plan - Assessment (1) Major depressive disorder, single episode, severe Code(s): F32.2 - Major depressive disorder, single episode, severe without psychotic features Status: Acute - Plan Plan: Patient's mood continues to slowly improve. Though she saw remains somewhat depressed. Her eating and tolerating increased amounts of food is promising. Hopefully we can get her bed verified at [facility] consider discharge in 1- 2 days Justification for Continued Inpatient Stay: At this time patient would decompensate if not placed in an appropriate level of care Discharge Planning: Possible placement in [facility]
[2017-11-02 18:20] VITALS: RESP 16
[2017-11-02] MEDS ORDERED: traZODone 100 MG Tablet PO SCH (21:00)
[2017-11-03 05:41] VITALS: BP 115/60; PULSE 96; TEMP 98.2; O2SAT 96
[2017-11-03] MEDS: Sucralfate Liq 1 GM/10 ML UDC PO SCH ×2 (08:00→12:03)
[2017-11-03] MEDS: Gabapentin 100 MG Capsule PO SCH ×2 (08:00→12:03)
[2017-11-03] MEDS: QUEtiapine 25 MG Tablet PO SCH (08:00)
[2017-11-03] MEDS: Senna/Docusate Sodium 8.6/50 MG Tablet PO SCH (08:00)
--- NOTE | 2017-11-03 11:11 | P.PNPSY ---
Subjective Remarks: Patient seen in her room with nurse Maikol, chart reviewed, patient continues to tolerate an increase in diet without difficulty. It appears her shingles have dried. She is excited and also somewhat anxious about possibly being discharged next day or 2 to [facility]. Medicine service has signed off on the patient at this time. If patient discharged today will also need to arrange for GI follow-up with Dr. Delgado Review of Systems All other systems reviewed negative except as stated in HPI Mental Status Examination Appearance: Appropriate Consciousness: Alert Orientation: x4 Motor Activity: Normal gait Speech: Unremarkable Language: Adequate Fund of Knowledge: Adequate Attention and Concentration: Adequate Memory: Unremarkable Mood: Sad (Improving) Affect: Other (Slight decreased range and intensity) Thought Process & Associations: Intact Thought Content: Appropriate Hallucination Type: None Delusion Type: None Suicidal Ideation: No Suicidal Plan: No Suicidal Intention: No Homicidal Ideation: No Homicidal Plan: No Homicidal Intention: No Insight: Adequate Judgment: Adequate Assessment and Plan - Assessment (1) Major depressive disorder, single episode, severe Code(s): F32.2 - Major depressive disorder, single episode, severe without psychotic features Status: Acute - Plan Plan: Patient continues to improve consider discharge in the next day or 2 when bed available and appropriate follow-up is in place including mental health and GI Justification for Continued Inpatient Stay: At this time patient would decompensate if not placed in an appropriate level of care Discharge Planning: To be determined
--- NOTE | 2017-11-03 11:42 | P.DSPSY ---
Psychiatry Discharge Summary Inpatient Psychiatric care?: Yes Advance Directives: No Mental Health Advance Directive: No Health Care Proxy: No - Admission Admission Date: October 14, 2017 16:31 - Admission Diagnosis (1) Major depressive disorder, single episode, severe Code(s): F32.2 - Major depressive disorder, single episode, severe without psychotic features Brief History: The patient is a 57-year-old woman, domiciled with a friend in [facility] , she has a daughter, she is single, retired, with a psychiatric history of depression, anxiety, insomnia, cannabis use disorder, benzodiazepine use disorder, 5 previous psychiatric hospitalizations, last hospitalization was 5 years ago in 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, she is in Seroquel 100 mg at bedtime, doxepin 25 mg, medical history of fibromyalgia and GERD, who presents after an overdose. Patient reports that she has been depressed, she has not been sleeping, reports a little after 6 PM today, she drank 2-3 cups of liquid Drano. Patient reports that she is just tired and depressed. She has been facing problems with her couple. She has not slept for the last 3 days which have led to desperation with increased sense of hopelessness, helplessness, worthlessness, and finally 2 suicide ideation and to a suicidal attempt. During the evaluation the patient is very tearful, she seems to be quite fragile and vulnerable. The patient reports that she is in multiple medications for insomnia, none of them are helping, she has been also using Xanax from her friend. He clarifies that after 3 days without sleeping, her coping skills "are gone, I do not know how to deal and manage frustration anymore". Other than insomnia she also reports poor appetite, weight loss for the last 2 months. She denies visual and auditory hallucinations. The patient is logical, coherent and relevant. No paranoia, no delusions, no ideas of reference are present. The patient is fully oriented 3. She reports occasional use of marijuana. Denies the use of alcohol and other illegal drugs. PPHx: epression, anxiety, insomnia, cannabis use disorder, benzodiazepine use disorder, 5 previous psychiatric hospitalizations, last hospitalization was 5 years ago in 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, she is in Seroquel 100 mg at bedtime, doxepin 25 mg, me PMHx: dical history of fibromyalgia and GERD, substance Hx: Patient uses marijuana, Xanax sometimes, denies alcohol family Hx: Father and mother were both diagnosed with depression Social Hx: The patient was born and raised in [place], she lives in [facility] with a friend, she has a 36 years old daughter, single, retired, her highest level of education is some college Tobacco Use In Past 30 Days: No How Often Do You Have a Drink Containing Alcohol: Never Hospital Course: Patient's hospital course after transfer down from medical service was uneventful. Patient showed some insight and understanding into the severity of her injury she tolerated and cooperated with the GI team and the surgery team of the medical team along with the psychiatric team. She is at the ability to have her diet advanced to regular diet she is tolerating that with minimal discomfort. Medicine service and GI service has signed off on her. Patient denies suicidality homicidality voice or visions. She is excited about also somewhat anxious about discharge. She will be going to the [facility] in [place]. Mental health follow-up through [facility] act and follow up with her GI specialist. Thus patient will be discharged today with Rx 1 month to follow-up [facility] act and follow-up GI services - Discharge Discharge Date: 11/03/17 - Discharge Diagnosis (1) Major depressive disorder, single episode, severe Diagnosis: Principal Code(s): F32.2 - Major depressive disorder, single episode, severe without psychotic features Status: Acute Discharge Disposition: Residential [facility] - Discharge Instructions Discharge Diet: Regular Diet Activities You Can Perform: Regular- No Restrictions - Discharge Time > 30 minutes Mental Status Examination Appearance: Appropriate Consciousness: Alert Orientation: x4 Motor Activity: Normal gait Speech: Unremarkable Language: Adequate Fund of Knowledge: Adequate Attention and Concentration: Adequate Memory: Unremarkable Mood: Sad (Improving) Affect: Other (Slight decreased range and intensity) Thought Process & Associations: Intact Thought Content: Appropriate Hallucination Type: None Delusion Type: None Suicidal Ideation: No Suicidal Plan: No Suicidal Intention: No Homicidal Ideation: No Homicidal Plan: No Homicidal Intention: No Insight: Adequate Judgment: Adequate Discharge/Advance Care Plan - Results Vital Signs: Last Vital Signs Temp 98.2 F 11/03/17 05:42 Pulse 96 H 11/03/17 05:42 Resp 16 11/03/17 05:42 BP 115/60 11/03/17 05:42 Pulse Ox 96 11/03/17 05:42 Lab Results: Laboratory Results Hemoglobin A1c 5.3 % (4.3-6.0) 10/15/17 07:23 Triglycerides 66 mg/dL (42-150) 10/15/17 07:23 Cholesterol 114 mg/dL (120-200) L 10/15/17 07:23 LDL Cholesterol, Calc 42 mg/dL (0-99) 10/15/17 07:23 HDL Cholesterol 58.6 mg/dL (40.0-60.0) 10/15/17 07:23 Summary of Procedures: Esophageal dilatation Imaging: ITS Impressions Venous Doppler Study 10/19/17 00:00 CONCLUSION: 1. There is thrombus within the cephalic vein. Pending Results: None - Medications Number of antipsychotic medications at discharge: 1 - Discharge Care Plan Goals to Promote Your Health: * To prevent worsening of your condition and complications * To maintain your health at the optimal level Directions to Meet Your Goals: Take your medications as prescribed Follow your dietary instruction Follow activity as directed Keep your appointments as scheduled Take your immunizations and boosters as scheduled If your symptoms worsen call your PCP, if no PCP go to Urgent Care Center or Emergency Room For 08/09 questions related to your inpatient stay or results of tests pending at discharge, please contact Dr. Augie Jules MD at Smoking is Dangerous to Your Health. Avoid second hand smoking
== END 2017-11-03 13:30 ==
LOC: H4EA 16:31
PROVIDERS: ADMIT Psychiatry & Neurology Psychiatry; ATTEND Psychiatry & Neurology Psychiatry
PROC: PANENDO (2017-10-15 16:56)